=== PATIENT | male | born 1975 | race Two or more races ===

== ENCOUNTER 2020-07-06 12:07 | Outpatient (REF) | payer BC, SELFPAY | END 2020-07-06 12:08 | disposition home or self-care (01) | LOC: HO.LAB 12:07 | PROVIDERS: PCP Physician Assistant; Visit Provider Internal Medicine | DX: Z20.828 Contact with and (suspected) exposure to other viral communicable diseases (principal) | CPT/HCPCS: 87635 ==

== ENCOUNTER 2020-08-29 08:10 | Outpatient (REF) | payer BC, SELFPAY | END 2020-08-29 08:11 | disposition home or self-care (01) | LOC: HO.LAB 08:10 | PROVIDERS: Visit Provider Internal Medicine | DX: Z20.828 Contact with and (suspected) exposure to other viral communicable diseases (principal) | CPT/HCPCS: C9803; U0003 ==

== ENCOUNTER → 2020-09-18 09:03 | Outpatient (BNVA) | payer BC, SELFPAY | PROVIDERS: PCP Physician Assistant; Referring Provider Physician Assistant; Visit Provider Internal Medicine | DX: Z76.89 Persons encountering health services in other specified circumstances (principal) ==

== ENCOUNTER 2020-09-19 07:26 | Outpatient (REF) | payer BC, SELFPAY ==
[2020-09-19 09:13] LABS: Alanine Aminotransferase 49 U/L (0-40); Alkaline Phosphatase 62 U/L (39-117); Anion Gap 10 (12-20); Aspartate Amino Transferase 35 U/L (5-37); Bilirubin Total 1.4 mg/dL (0.0-1.0); Blood Urea Nitrogen 16 mg/dL (9-16); Calcium 8.5 mg/dL (8.4-10.2); Carbon Dioxide 27 mmol/L (22-29); Chloride 101 mmol/L (96-108); Cholesterol 122 mg/dL; Estimated Glomerular Filt Rate > 60; Glucose Random 109 mg/dL (60-115); HDL Cholesterol 39 mg/dL; LDL Cholesterol Calculated 70 mg/dl; Microalbum/Creatinine Ratio Ur 4.7 ug/mg cr; Potassium 4.1 mmol/l (3.3-5.1); Sodium 134 mmol/L (135-145); Total Protein 7.5 g/dL (6.5-8.0); Triglycerides 66 mg/dL
[2020-09-19 09:27] LABS: Vitamin D 25-OH Total 14.9 ng/mL (>30)
[2020-09-19 09:58] LABS: Estimated Average Glucose 134 mg/dL; Hemoglobin A1c % 6.3 %
[2020-09-20 17:47] LABS: LDL Cholesterol Direct 77 mg/dL (<100)
== END 2020-09-19 07:27 | disposition home or self-care (01) ==
LOC: HO.LAB 07:26
PROVIDERS: PCP Physician Assistant; Visit Provider Internal Medicine
DX: E11.65 Type 2 diabetes mellitus with hyperglycemia (principal); E55.9 Vitamin D deficiency, unspecified
CPT/HCPCS: 80053; 80061; 82043; 82306; 83036; 83721

== ENCOUNTER 2020-12-22 10:21 | Outpatient (REF) | payer OTHER, SELFPAY ==
[2020-12-22 11:27] LABS: Hematocrit 43.6 % (42-52); Hemoglobin 13.7 g/dl (14.0-18.0); Mean Corpuscular HGB Conc 31.4 g/dl (31.0-36.0); Mean Corpuscular Hemoglobin 28.4 pg (27.0-33.0); Mean Corpuscular Volume 90.5 fL (80-98); Mean Platelet Volume 11.5 fL (9.4-12.4); Platelet Count 314 X10*3/uL (160-400); Red Blood Count 4.82 X10*6/uL (4.60-5.80); Red Cell Distribution Width 11.9 % (11.0-16.0); White Blood Count 8.4 X10*3/uL (4.8-10.8)
[2020-12-22 11:45] LABS: Glucose Urine UA NEG (NEG); Leukocyte Esterase Urine NEG (NEG); Nitrite Urine NEG (NEG); PH 7.5 (5.0-8.0); Specific Gravity - Urine 1.015 (1.005-1.025); Urine Blood NEG (NEG); Urine Ketones NEG (NEG); Urine Protein NEG (NEG-TRACE)
[2020-12-22 11:48] LABS: Appearance Urine CLEAR; Color Urine YELLOW
[2020-12-22 12:01] LABS: Creatinine Urine 65.79 mg/dL
[2020-12-22 12:07] LABS: Alanine Aminotransferase 44 U/L (0-40); Albumin Level 4.2 g/dL (3.5-5.0); Alkaline Phosphatase 57 U/L (39-117); Anion Gap 13 (12-20); Aspartate Amino Transferase 36 U/L (5-37); Bilirubin Total 1.5 mg/dL (0.0-1.0); Blood Urea Nitrogen 16 mg/dL (9-16); Calcium 8.9 mg/dL (8.4-10.2); Carbon Dioxide 27 mmol/L (22-29); Chloride 100 mmol/L (96-108); Cholesterol 130 mg/dL; Estimated Glomerular Filt Rate > 60; Glucose Fasting 111 mg/dL (60-99); HDL Cholesterol 44 mg/dL; LDL Cholesterol Calculated 77 mg/dl; Potassium 4.3 mmol/L (3.3-5.1); Sodium 136 mmol/L (135-145); Total Protein 7.7 g/dL (6.5-8.0); Triglycerides 46 mg/dL
[2020-12-22 12:12] LABS: TSH reflex Free T4 1.18 uIU/mL (0.32-4.0)
== END 2020-12-22 10:22 | disposition home or self-care (01) ==
LOC: HO.LAB 10:21
PROVIDERS: Internal Medicine; PCP Physician Assistant; Visit Provider Physician Assistant
DX: E11.65 Type 2 diabetes mellitus with hyperglycemia (principal); I10 Essential (primary) hypertension; R30.0 Dysuria
CPT/HCPCS: 36415; 80053; 80061; 81003; 84443; 85027; 86900; 86901

== ENCOUNTER 2021-04-24 08:47 | Outpatient (REF) | payer OTHER, SELFPAY ==
[2021-04-24 12:12] LABS: Hematocrit 40.4 % (42-52); Hemoglobin 12.8 g/dl (14.0-18.0); Mean Corpuscular HGB Conc 31.7 g/dl (31.0-36.0); Mean Corpuscular Hemoglobin 28.3 pg (27.0-33.0); Mean Corpuscular Volume 89.4 fL (80-98); Platelet Count 267 X10*3/uL (160-400); Red Blood Count 4.52 X10*6/uL (4.60-5.80); Red Cell Distribution Width 12.7 % (11.0-16.0); White Blood Count 8.1 X10*3/uL (4.8-10.8)
[2021-04-24 12:28] LABS: Estimated Average Glucose 82 mg/dL; Hemoglobin A1c % 4.5 %
[2021-04-24 12:29] LABS: Alanine Aminotransferase 19 U/L (0-40); Alkaline Phosphatase 51 U/L (39-117); Anion Gap 11 (12-20); Aspartate Amino Transferase 20 U/L (5-37); Bilirubin Total 1.8 mg/dL (0.0-1.0); Blood Urea Nitrogen 9 mg/dL (9-16); Carbon Dioxide 28 mmol/L (22-29); Chloride 105 mmol/L (96-108); Cholesterol 123 mg/dL; Estimated Glomerular Filt Rate > 60; Glucose Fasting 103 mg/dL (60-99); HDL Cholesterol 33 mg/dL; LDL Cholesterol Calculated 81 mg/dl; Potassium 4.5 mmol/L (3.3-5.1); Sodium 139 mmol/L (135-145); Total Protein 7.2 g/dL (6.5-8.0); Triglycerides 47 mg/dL
[2021-04-24 12:52] LABS: TSH reflex Free T4 0.81 uIU/mL (0.32-4.0)
== END 2021-04-24 08:48 | disposition home or self-care (01) ==
LOC: HO.LAB 08:47
PROVIDERS: PCP Physician Assistant; Referring Provider Physician Assistant; Visit Provider Dietitian, Registered
DX: E11.65 Type 2 diabetes mellitus with hyperglycemia (principal); I10 Essential (primary) hypertension; Z98.84 Bariatric surgery status; Z71.3 Dietary counseling and surveillance
CPT/HCPCS: 36415; 80053; 80061; 83036; 84443; 85027; 97802

== ENCOUNTER → 2021-08-22 11:11 | Outpatient (BNVA) | payer OTHER, SELFPAY | PROVIDERS: PCP Physician Assistant; Referring Provider Physician Assistant; Visit Provider Surgery | DX: K64.9 Unspecified hemorrhoids (principal) | CPT/HCPCS: 46600 ==

== ENCOUNTER 2021-10-01 12:56 | Outpatient (REF) | payer OTHER, SELFPAY | END 2021-10-01 12:57 | disposition home or self-care (01) | LOC: HO.HMGCLDS 12:56 | PROVIDERS: Visit Provider Internal Medicine | DX: Z20.822 Contact with and (suspected) exposure to COVID-19 (principal) | CPT/HCPCS: C9803; U0003; U0005 ==

== ENCOUNTER 2022-01-06 14:38 | Inpatient (IN) | payer OTHER, SELFPAY ==
--- NOTE | 2022-01-06 | ECG_ITS ---
Test Reason : CP Blood Pressure : / mmHG Vent. Rate : 069 BPM Atrial Rate : 069 BPM P-R Int : 146 ms QRS Dur : 086 ms QT Int : 390 ms P-R-T Axes : 068 076 061 degrees QTc Int : 417 ms Normal sinus rhythm Normal ECG When compared with ECG of 18-MAR-2019 07:36, No significant change was found Referred By: Generic ED Physician Electronically Signed By:Myles Huntley
--- NOTE | ~2022-01-06 | US_ITS ---
EXAMINATION: US ABDOMEN LIMITED CLINICAL INFORMATION: Abdominal pain. Evaluate gallbladder.. COMPARISON: CT abdomen 01/06/2022 TECHNIQUE: Real-time imaging of the right upper quadrant abdominal viscera. FINDINGS: PANCREAS: Obscured by bowel gas LIVER: Normal. The liver is normal in size. The liver contour is normal. Parenchymal echogenicity is normal. No focal hepatic lesion. There is no intrahepatic biliary duct dilatation seen. GALLBLADDER: Gallbladder is mild to moderately distended. There is echogenic bile/sludge in the gallbladder. No shadowing calculi. The gallbladder wall is thickened measuring up to approximately 6 mm. No pericholecystic fluid. Technologist reports tenderness in the area of the gallbladder. . COMMON BILE DUCT: Normal in caliber measuring 0.3 cm in diameter. RIGHT KIDNEY: Normal. No hydronephrosis. No renal calculi or focal parenchymal lesions. The kidney measures 13.2 cm in maximum dimension. FREE FLUID: None. US/US abdomen limited IMPRESSION: 1.Gallbladder is mild to moderately distended. There is echogenic bile/sludge. No shadowing calculi evident by ultrasound. There is gallbladder wall thickening and tenderness in the area of the gallbladder. Sonographic features are nonspecific. Differential consideration include acalculus cholecystitis. Clinically correlate. Further evaluation with HIDA scan as clinically warranted. 2. Pancreas obscured by bowel gas.
--- NOTE | ~2022-01-06 | MR_ITS ---
EXAMINATION: MR ABDOMEN WITHOUT CONTRAST CLINICAL INFORMATION: Elevated liver function tests. Rule out common bile duct stone COMPARISON: Previous abdominal ultrasound and CT of the abdomen and pelvis from yesterday TECHNIQUE: MR abdomen is performed without gadolinium contrast. MRCP sequences were performed. FINDINGS: LUNG BASES: The visualized lung bases are unremarkable. LIVER, GALLBLADDER, AND BILIARY TREE: The liver is normal in size, smooth in contour, and normal in signal. No focal hepatic lesion or biliary ductal dilatation is present. The gallbladder is upper normal in size. There is dependent immediate signal material seen in the gallbladder suggestive of sludge. On coronal T2 image 11 there is question of several small gallstones. The gallbladder wall is slightly thickened measuring up to 4 to 5 mm.. The intra and extrahepatic bile ducts are normal in caliber. The common bile duct measures 0.5 cm. No common bile duct stone/filling defect is seen. PANCREAS: Unremarkable. SPLEEN: Unremarkable. ADRENAL GLANDS: Unremarkable. KIDNEYS AND URETERS: The kidneys are normal in size and shape. There is a small left renal cyst. No hydronephrosis. No perinephric stranding. GASTROINTESTINAL TRACT: Postsurgical changes to the stomach. Stool throughout the colon. No bowel obstruction. No ascites or fluid collection. ABDOMINAL WALL: No significant hernia is appreciated. LYMPH NODES: No lymphadenopathy. VASCULAR: Unremarkable. OSSEOUS STRUCTURES: Marrow signal normal. There is degenerative disc disease at L5-S1. MR/MR MRCP IMPRESSION: Normal caliber intra and extrahepatic bile ducts. No common bile duct stone seen. Upper normal-size gallbladder. Dependent intermediate signal in the gallbladder suggestive of sludge or small stones. Slightly thickened gallbladder wall.. Possible cholecystitis should be considered. Small left renal cyst.
--- NOTE | ~2022-01-06 | CT_ITS ---
EXAMINATION: CT ABDOMEN AND PELVIS WITH CONTRAST CLINICAL INFORMATION: Abdominal pain COMPARISON: Abdominal ultrasound 09/15/2017 TECHNIQUE: Multidetector volumetric images were obtained from the superior aspect of the liver through the pubic symphysis following administration 85 mL of Omnipaque 350 intravenous contrast. Sagittal and coronal reformatted images were obtained on the technologist's workstation. Oral contrast: No This CT examination was performed using dose optimization techniques as appropriate, variously including the following: *Automated exposure control *Adjustment of mA and/or kV according to patient size (this includes techniques or standardized protocols for targeted exams where dose is matched to indication/reason for exam; i.e. extremities or head) *Use of iterative reconstruction technique DLP: 639 mGy-cm FINDINGS: LUNG BASES: Unremarkable. ABDOMINAL AND PELVIC WALL: Unremarkable. LIVER AND BILIARY TREE: Unremarkable. GALLBLADDER: Gallbladder is mildly to moderately distended with borderline wall thickening. No radiopaque gallstones or sade pericholecystic inflammatory changes. PANCREAS: Unremarkable. SPLEEN: Unremarkable. ADRENAL GLANDS: Unremarkable. KIDNEYS AND URETERS: Benign-appearing Bosniak 1 left renal cyst, no imaging follow-up recommended. A 7 mm immediate density exophytic left lower pole renal lesion, 3:36. GASTROINTESTINAL TRACT: Postsurgical changes of gastric bypass. VASCULAR: Unremarkable. LYMPH NODES/PERITONEUM: No lymphadenopathy. FREE FLUID: None. BLADDER: Unremarkable. PELVIC VISCERA: Unremarkable. OSSEOUS STRUCTURES: Unremarkable. CT/CT abdomen pelvis w con IMPRESSION: Gallbladder is mildly to moderately distended with borderline wall thickening. No radiopaque gallstones or sade pericholecystic inflammatory changes. If any clinical concern for cholecystitis a right upper quadrant ultrasound could be obtained for further characterization. A 7 mm intermediate density exophytic left lower pole renal lesion of uncertain etiology unclear if this could reflect a hyperdense renal cyst or a solid renal mass. Recommend further characterization with renal ultrasound, and if renal ultrasound is not confirmatory a MR renal mass protocol should be obtained, although given small size it may be too small to definitively characterize.
[2022-01-06 14:47] VITALS: BP 144/86; PULSE 71; RESP 18; TEMP 531.6; TEMP 989; O2SAT 100; BMI 27.8
--- NOTE | 2022-01-06 14:59 | ED_ITS ---
HPI - General Adult General Chief complaint: General Medical Stated complaint: Chest pain Time Seen by Provider: 01/06/22 14:52 Source: patient Mode of arrival: ambulatory Limitations: no limitations History of Present Illness HPI narrative: 46 yo male with history of gastric sleeve in [facility] 12/2020 (sign wt loss since now off medications for DM, HTN, HLD) here with complaints of upper abdominal pain with radiation to the chest and back with nausea/vomiting x3 since 10am, worsened with deep breathing. States takes my breath away. No leg swelling, leg pain, Patel, fevers, chills, urinary symptoms. Related Data Previous Rx's Medication Instructions Recorded ibuprofen 800 mg tablet 800 mg PO ONCE 30 Days #30 tab 06/21/21 docusate sodium 100 mg capsule 100 mg PO BID 30 Days #60 cap 08/06/21 (Colace) hydrocortisone 1 % topical cream 1 appl TOPICAL TID PRN 7 Days 08/06/21 (Preparation H Hydrocortisone) #28.4 g Allergies Allergy/AdvReac Type Severity Reaction Status Date / Time No Known Allergies Allergy Verified 08/22/21 11:21 Review of Systems Review of Systems: Yes all other systems are reviewed and are negative Constitutional: Constitutional: Reports no additional constitutional complaints, Denies body ache(s), Denies chills, Denies fever(s), Denies headache(s) and Denies weakness Eyes: Eyes: Reports no additional eye complaints and Denies change in vision ENT: Reports system reviewed and no additional complaints, except as documented, Denies dizziness, Denies headache(s), Denies nasal congestion, Denies nasal discharge and Denies neck pain Cardiovascular: Cardiovascular: Reports no additional cardiovascular complaints, Reports chest pain, Denies leg edema and Reports dyspnea Respiratory: Respiratory: Reports no additional respiratory complaints, Denies cough and Reports dyspnea Gastrointestinal: Gastrointestinal: Reports no additional gastrointestinal complaints, Reports abdominal pain, Denies diarrhea, Reports nausea and Reports vomiting Genitourinary: Genitourinary: Denies urinary incontinence Musculoskeletal: Musculoskeletal: Reports no additional musculoskeletal complaints, Denies back pain, Denies arthralgias, Denies joint swelling, Denies neck pain, Denies numbness and Denies tingling Integumentary/Breasts: Skin/Breast: Reports system reviewed and no additional complaints, except as docu and Denies rash Neurologic: Reports system reviewed and no additional complaints, except as documented, Denies dizziness, Denies headache(s), Denies numbness, Denies tingling and Denies weakness PMFSH Past Medical History Attestation statement: The following information was validated with the patient. Source: old records reviewed and nursing notes reviewed Medical History HLD (hyperlipidemia) Vitamin D deficiency Surgical History History of carpal tunnel release Family History Family History Father Mental problem Substance abuse Mother Diabetes Cardiac arrest Social History Social History Housing: Apartment Alcohol intake: current Alcohol intake frequency: a few times a week Patient Tobacco Use Status: Never used Tobacco e-Cigarette/Vaping Use: Never Used Second Hand Smoke Exposure: No Use of substances other than those prescribed or required for medical reasons: Yes Substance Use Type: Marijuana Advance Directives: No Advance Directives Information Provided: No service: No Current occupational status: employed 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 Physical Exam ED Vital Signs: Vital Signs - 24 hr 01/06/22 14:47 01/06/22 15:17 01/06/22 15:43 Temperature 989 F H 97.8 F Pulse Rate 71 71 71 Respiratory Rate 18 14 15 Blood Pressure 144/86 H 133/82 136/78 Pulse Oximetry 100 98 01/06/22 17:52 01/06/22 17:54 01/06/22 19:50 Temperature 98.3 F Pulse Rate 76 76 74 Respiratory Rate 21 H 16 16 Blood Pressure 118/74 118/74 110/63 Pulse Oximetry 98 96 BMI result Body Mass Index 27.8 Const General: cooperative, healthy appearing, comfortable and no acute distress Orientation/consciousness: patient oriented x3 Limitations: no limitations HENMT Head: Yes normal to inspection Ears: hearing grossly normal bilaterally General nose exam: Normal external nose present Face and sinus: Yes normal facial exam Mouth: Normal oral and palatal mucosa present Teeth and gingiva: dentition normal Throat: Yes posterior oropharynx normal, Yes tonsils normal and Yes uvula midline Eyes General: appearance normal, both eyes and all related structures Pupils: Equal, round and reactive pupils present Neck Neck: Yes normal visual inspection, Yes full ROM, Yes no lymphadenopathy and Yes no meningeal signs Chest Chest palpation & inspection: normal inspection of the chest Resp Effort & Inspection: normal respiratory effort Auscultation: clear to auscultation bilaterally Cardio Rate: regular rate Rhythm: regular rhythm Peripheral pulses: Peripheral pulses 2+ throughout GI Inspection: Yes normal to inspection Palpation (GI): Soft to palpation and Tenderness to palpation present (GI) (Upper AP with guarding-focal in RUQ) General: Yes no CVA tenderness Back/Spine/Pelvis Back: no CVA tenderness Thoracic/Lumbar Spine: thoracic and lumbar spine normal to inspection Skin General skin exam: no rashes or lesions noted Neuro General: patient oriented x3, moves all extremities and no meningeal signs Cranial nerves: Yes CN's II-XII intact bilaterally, Yes Equal, round and reactive pupils present, Yes Bilaterally intact EOM present, Yes Nystagmus not present and Yes Normal facial strength present Cognition (Neuro): normal cognition Gait exam (Neuro): Normal gait present Motor exam (neuro): 5/5 motor strength present throughout Sensory Exam: Normal double simultaneous stimulation for sensation Extrem General: Yes normal to inspection, Yes no pedal edema and Yes no calf tenderness Course Course Course Narrative: 46-year-old male status post gastric bypass here with reports of vomiting with upper abdominal pain that radiates to the chest and back since 10:00. On exam patient has tenderness in the epigastric with some guarding but no rebound. Will check EKG, labs, UA. Anticipate patient will need CT of the abdomen and pelvis. Will provide analgesia, antiemetic and normal saline bolus. Reevaluation(s) Reevaluation #1: CT shows a mildly to moderately distended gallbladder with thickening. Will obtain ultrasound to evaluate further Time: 17:25 Reevaluation #2: US shows -IMPRESSION: 1.Gallbladder is mild to moderately distended. There is echogenic bile/sludge. No shadowing calculi evident by ultrasound. There is gallbladder wall thickening and tenderness in the area of the gallbladder. Sonographic features are nonspecific. Differential consideration include acalculus cholecystitis. Clinically correlate. Further evaluation with HIDA scan as clinically warranted. ? 2. Pancreas obscured by bowel gas. -Will d/w with surgery as patient has required several rounds of analgesia for adequate pain control. Time: 19:45 Reevaluation #3: Spoke to Dr. James from General surgery. She will admit patient for HIDA scan and further evaluation. She is requesting antibiotics. At this time infection is suspected. Antibiotics ordered. Time: 19:57 Medical Decision Making Medical Records Medical records reviewed: Yes I reviewed the patient's medical records. Lab Data Lab results reviewed: Yes I reviewed the patient's lab results. Result diagrams: 01/06/22 15:31 01/06/22 15:31 Labs: Lab Results 01/06/22 01/06/22 01/06/22 Range/Units 15:31 15:31 15:31 WBC 10.6 (4.8-10.8) X10*3/uL RBC 5.07 (4.60-5.80) X10*6/uL Hgb 14.6 (14.0-18.0) g/dl Hct 45.5 (42.0-52.0) % MCV 89.7 (80.0-98.0) fL MCH 28.8 (27.0-33.0) pg MCHC 32.1 (31.0-36.0) g/dl RDW 12.3 (11.0-16.0) % Plt Count 271 (160-400) X10*3/uL MPV 10.0 (9.4-12.4) fL Immature Gran % (Auto) 0.3 (0.0-0.4) % Neut % (Auto) 64.0 (45-73) % Lymph % (Auto) 23.4 (20-40) % [place] % (Auto) 9.4 (2-11) % Eos % (Auto) 2.3 (0-4) % Baso % (Auto) 0.6 (0-2) % Lymph # (Auto) 2.5 (1.2-4.9) X10*3/uL [place] # (Auto) 1.0 (0.1-1.2) X10*3/uL Eos # (Auto) 0.2 (0.0-0.4) X10*3/uL Baso # (Auto) 0.1 (0.0-0.2) X10*3/uL Abs Immat Gran (auto) 0.03 (0.00-0.03) X10*3/uL Absolute Neuts (auto) 6.8 (2.0-8.3) x10*3/uL Absolute Nucleated RBC 0.000 (0.0-0.012) X10*3/uL Nucleated RBC % (auto) 0.0 (0.0-0.2) /100WBC PT 13.1 H (9.9-13.0) SEC INR 1.2 H (0.9-1.1) D-Dimer High Sensitivty NG/ML Sodium 139 (135-145) mmol/L Potassium 4.0 (3.3-5.1) mmol/L Chloride 104 (96-108) mmol/L Carbon Dioxide 28 (22-29) mmol/L Anion Gap 11 L (12-20) BUN 16 (9-16) mg/dL Creatinine 0.97 (0.5-1.4) mg/dL Estim Creat Clear Calc 102.2 Estimated GFR > 60 Random Glucose 94 (60-115) mg/dL Lactic Acid (0.5-2.0) mmol/L Calcium 8.9 (8.4-10.2) mg/dL Magnesium 2.2 (1.6-2.6) mg/dL Total Bilirubin 3.5 H (0.0-1.0) mg/dL Direct Bilirubin 2.2 H (0.0-0.5) mg/dL AST 212 H (5-37) U/L ALT 129 H (0-40) U/L Alkaline Phosphatase 70 D (39-117) U/L Troponin I High Sens (<3.5-35.0) ng/L Total Protein 7.2 (6.5-8.0) g/dL Albumin 4.0 (3.5-5.0) g/dL Lipase 52 (8-78) U/L COVID-19 (BRENDA) (Negative) COVID-19 Clin Com 01/06/22 01/06/22 01/06/22 Range/Units 15:31 15:31 15:31 WBC (4.8-10.8) X10*3/uL RBC (4.60-5.80) X10*6/uL Hgb (14.0-18.0) g/dl Hct (42.0-52.0) % MCV (80.0-98.0) fL MCH (27.0-33.0) pg MCHC (31.0-36.0) g/dl RDW (11.0-16.0) % Plt Count (160-400) X10*3/uL MPV (9.4-12.4) fL Immature Gran % (Auto) (0.0-0.4) % Neut % (Auto) (45-73) % Lymph % (Auto) (20-40) % [place] % (Auto) (2-11) % Eos % (Auto) (0-4) % Baso % (Auto) (0-2) % Lymph # (Auto) (1.2-4.9) X10*3/uL [place] # (Auto) (0.1-1.2) X10*3/uL Eos # (Auto) (0.0-0.4) X10*3/uL Baso # (Auto) (0.0-0.2) X10*3/uL Abs Immat Gran (auto) (0.00-0.03) X10*3/uL Absolute Neuts (auto) (2.0-8.3) x10*3/uL Absolute Nucleated RBC (0.0-0.012) X10*3/uL Nucleated RBC % (auto) (0.0-0.2) /100WBC PT (9.9-13.0) SEC INR (0.9-1.1) D-Dimer High Sensitivty < 150 NG/ML Sodium (135-145) mmol/L Potassium (3.3-5.1) mmol/L Chloride (96-108) mmol/L Carbon Dioxide (22-29) mmol/L Anion Gap (12-20) BUN (9-16) mg/dL Creatinine (0.5-1.4) mg/dL Estim Creat Clear Calc Estimated GFR Random Glucose (60-115) mg/dL Lactic Acid 1.4 (0.5-2.0) mmol/L Calcium (8.4-10.2) mg/dL Magnesium (1.6-2.6) mg/dL Total Bilirubin (0.0-1.0) mg/dL Direct Bilirubin (0.0-0.5) mg/dL AST (5-37) U/L ALT (0-40) U/L Alkaline Phosphatase (39-117) U/L Troponin I High Sens < 3.5 (<3.5-35.0) ng/L Total Protein (6.5-8.0) g/dL Albumin (3.5-5.0) g/dL Lipase (8-78) U/L COVID-19 (BRENDA) (Negative) COVID-19 Clin Com 01/06/22 01/06/22 Range/Units 19:56 20:06 WBC (4.8-10.8) X10*3/uL RBC (4.60-5.80) X10*6/uL Hgb (14.0-18.0) g/dl Hct (42.0-52.0) % MCV (80.0-98.0) fL MCH (27.0-33.0) pg MCHC (31.0-36.0) g/dl RDW (11.0-16.0) % Plt Count (160-400) X10*3/uL MPV (9.4-12.4) fL Immature Gran % (Auto) (0.0-0.4) % Neut % (Auto) (45-73) % Lymph % (Auto) (20-40) % [place] % (Auto) (2-11) % Eos % (Auto) (0-4) % Baso % (Auto) (0-2) % Lymph # (Auto) (1.2-4.9) X10*3/uL [place] # (Auto) (0.1-1.2) X10*3/uL Eos # (Auto) (0.0-0.4) X10*3/uL Baso # (Auto) (0.0-0.2) X10*3/uL Abs Immat Gran (auto) (0.00-0.03) X10*3/uL Absolute Neuts (auto) (2.0-8.3) x10*3/uL Absolute Nucleated RBC (0.0-0.012) X10*3/uL Nucleated RBC % (auto) (0.0-0.2) /100WBC PT (9.9-13.0) SEC INR (0.9-1.1) D-Dimer High Sensitivty NG/ML Sodium (135-145) mmol/L Potassium (3.3-5.1) mmol/L Chloride (96-108) mmol/L Carbon Dioxide (22-29) mmol/L Anion Gap (12-20) BUN (9-16) mg/dL Creatinine (0.5-1.4) mg/dL Estim Creat Clear Calc Estimated GFR Random Glucose (60-115) mg/dL Lactic Acid 0.8 (0.5-2.0) mmol/L Calcium (8.4-10.2) mg/dL Magnesium (1.6-2.6) mg/dL Total Bilirubin (0.0-1.0) mg/dL Direct Bilirubin (0.0-0.5) mg/dL AST (5-37) U/L ALT (0-40) U/L Alkaline Phosphatase (39-117) U/L Troponin I High Sens (<3.5-35.0) ng/L Total Protein (6.5-8.0) g/dL Albumin (3.5-5.0) g/dL Lipase (8-78) U/L COVID-19 (BRENDA) Negative (Negative) COVID-19 Clin Com See Note Imaging Data CT scan - abdomen: Attestation: I personally reviewed and interpreted this imaging study as follows: Radiologist's impression: IMPRESSION: ? Gallbladder is mildly to moderately distended with borderline wall thickening.? No radiopaque gallstones or sade pericholecystic inflammatory changes. If any clinical concern for cholecystitis a right upper quadrant ultrasound could be obtained for further characterization. ? A 7 mm intermediate density exophytic left lower pole renal lesion of uncertain etiology unclear if this could reflect a hyperdense renal cyst or a solid renal mass. Recommend further characterization with renal ultrasound, and if renal ultrasound is not confirmatory a MR renal mass protocol should be obtained, although given small size it may be too small to definitively characterize. US - abdomen: Attestation: I personally reviewed and interpreted this imaging study as follows: Radiologist's impression: INDINGS: PANCREAS: Obscured by bowel gas LIVER: Normal. The liver is normal in size. The liver contour is normal. Parenchymal echogenicity is normal. No focal hepatic lesion. There is no intrahepatic biliary duct dilatation seen. GALLBLADDER: Gallbladder is mild to moderately distended. There is echogenic bile/sludge in the gallbladder. No shadowing calculi. The gallbladder wall is thickened measuring up to approximately 6 mm. No pericholecystic fluid. Technologist reports tenderness in the area of the gallbladder. . COMMON BILE DUCT: Normal in caliber measuring 0.3 cm in diameter. RIGHT KIDNEY: Normal. No hydronephrosis. No renal calculi or focal parenchymal lesions. The kidney measures 13.2 cm in maximum dimension. FREE FLUID: None. US/US abdomen limited IMPRESSION: 1.Gallbladder is mild to moderately distended. There is echogenic bile/sludge. No shadowing calculi evident by ultrasound. There is gallbladder wall thickening and tenderness in the area of the gallbladder. Sonographic features are nonspecific. Differential consideration include acalculus cholecystitis. Clinically correlate. Further evaluation with HIDA scan as clinically warranted. ? 2. Pancreas obscured by bowel gas. ECG Data Attestation: I personally reviewed and interpreted this ECG as follows: Interpretation: Normal sinus rhythm with a rate of 69, normal NE, normal QRS, normal QT Discharge Plan Discharge Clinical Impression: Cholecystitis Patient Disposition: Admitted As Inpatient
[2022-01-06 15:17] VITALS: BP 133/82; PULSE 71; RESP 14; TEMP 36.6; O2SAT 98
[2022-01-06 15:35] LABS: MANUAL DIFF FLAG NO
[2022-01-06 15:36] LABS: Basophils Absolute Auto 0.1 X10*3/uL (0.0-0.2); Basophils Percent Auto 0.6 % (0-2); Eosinophils Absolute Auto 0.2 X10*3/uL (0.0-0.4); Eosinophils Percent Auto 2.3 % (0-4); Hematocrit 45.5 % (42.0-52.0); Hemoglobin 14.6 g/dl (14.0-18.0); Imm Gran Abs Auto 0.03 X10*3/uL (0.00-0.03); Imm Gran Pct Auto 0.3 % (0.0-0.4); Lymphocytes Absolute Auto 2.5 X10*3/uL (1.2-4.9); Lymphocytes Percent Auto 23.4 % (20-40); Mean Corpuscular HGB Conc 32.1 g/dl (31.0-36.0); Mean Corpuscular Hemoglobin 28.8 pg (27.0-33.0); Mean Corpuscular Volume 89.7 fL (80.0-98.0); Monocytes Percent Auto 9.4 % (2-11); Neutrophils Absolute Auto 6.8 x10*3/uL (2.0-8.3); Platelet Count 271 X10*3/uL (160-400); Red Blood Count 5.07 X10*6/uL (4.60-5.80); Red Cell Distribution Width 12.3 % (11.0-16.0); White Blood Count 10.6 X10*3/uL (4.8-10.8)
[2022-01-06] MEDS: 0.9 % Sodium Chloride 1,000 ML 999 ML IV (15:42)
[2022-01-06 15:43] VITALS: BP 136/78; PULSE 71; RESP 15
[2022-01-06 15:43] LABS: INTERNATIONAL NORM RATIO 1.2 (0.9-1.1); Prothrombin Time 13.1 SEC (9.9-13.0)
[2022-01-06] MEDS: ondansetron HCL 4 MG/2 ML VIAL IVPUSH (15:43)
[2022-01-06] MEDS: Morphine Sulfate 4 MG/ML CARTRIDGE IVPUSH ×2 (15:43→19:51)
[2022-01-06 15:46] LABS: D Dimer High Sensitivity < 150 NG/ML
[2022-01-06 15:48] LABS: Lactic Acid 1.4 mmol/L (0.5-2.0)
[2022-01-06 15:56] LABS: Alanine Aminotransferase 129 U/L (0-40); Alkaline Phosphatase 70 U/L (39-117); Anion Gap 11 (12-20); Aspartate Amino Transferase 212 U/L (5-37); Bilirubin Direct 2.2 mg/dL (0.0-0.5); Bilirubin Total 3.5 mg/dL (0.0-1.0); Blood Urea Nitrogen 16 mg/dL (9-16); Calcium 8.9 mg/dL (8.4-10.2); Carbon Dioxide 28 mmol/L (22-29); Chloride 104 mmol/L (96-108); Creatinine Clr Calc Pharmacy 102.2; Estimated Glomerular Filt Rate > 60; Glucose Random 94 mg/dL (60-115); Magnesium 2.2 mg/dL (1.6-2.6); Sodium 139 mmol/L (135-145); Total Protein 7.2 g/dL (6.5-8.0); Troponin-I High Sensitivity < 3.5 ng/L (<3.5-35.0)
[2022-01-06] MEDS: iohexoL 350 MG/ML 100 ML INFUS..BTL IV (16:35)
[2022-01-06 17:52] VITALS: BP 118/74; PULSE 76; RESP 21; O2SAT 98
[2022-01-06 17:54] VITALS: BP 118/74; PULSE 76; RESP 16
[2022-01-06 19:50] VITALS: BP 110/63; PULSE 74; RESP 16; TEMP 36.8; O2SAT 96
[2022-01-06 20:06] LABS: Lipase 52 U/L (8-78)
[2022-01-06 20:18] LABS: COVID-19 Test Negative (Negative)
[2022-01-06 20:21] LABS: Lactic Acid 0.8 mmol/L (0.5-2.0)
--- NOTE | 2022-01-06 20:29 | PHA.MEDREC ---
Pharmacy Consult ? Medication Reconciliation Pharmacy has completed the medication reconciliation. Patient is not on any prescription medications. patient states he is on vitamins post gastric sleeve but does not know which vitamins he takes.
[2022-01-06] MEDS: Piperacillin Sodium/Tazobactam 3.375 GM in 0.9 % Sodium Chloride 50 ML IV (20:41)
--- NOTE | 2022-01-06 21:18 | PC.NURSE ---
patient vomited shortly after attempting to eat. informed patient not to eat anymore until seen by hospitalist for further diet orders. patient agreeable.
[2022-01-06] MEDS: 0.9 % Sodium Chloride 1,000 ML 100 ML IVCONT (22:43)
[2022-01-06 23:29] LABS: Hematocrit 41.1 % (42.0-52.0); Hemoglobin 13.2 g/dl (14.0-18.0); Mean Corpuscular HGB Conc 32.1 g/dl (31.0-36.0); Mean Corpuscular Hemoglobin 28.9 pg (27.0-33.0); Mean Corpuscular Volume 90.1 fL (80.0-98.0); Platelet Count 245 X10*3/uL (160-400); Red Blood Count 4.56 X10*6/uL (4.60-5.80); Red Cell Distribution Width 12.2 % (11.0-16.0); White Blood Count 7.3 X10*3/uL (4.8-10.8)
[2022-01-07 00:05] VITALS: BP 107/65; PULSE 60; RESP 12; TEMP 37.1; O2SAT 97
[2022-01-07 05:48] LABS: MANUAL DIFF FLAG NO
[2022-01-07 05:50] LABS: Basophils Percent Auto 0.7 % (0-2); Eosinophils Absolute Auto 0.3 X10*3/uL (0.0-0.4); Eosinophils Percent Auto 4.1 % (0-4); Hematocrit 40.9 % (42.0-52.0); Hemoglobin 13.1 g/dl (14.0-18.0); Imm Gran Abs Auto 0.02 X10*3/uL (0.00-0.03); Imm Gran Pct Auto 0.3 % (0.0-0.4); Lymphocytes Absolute Auto 1.5 X10*3/uL (1.2-4.9); Lymphocytes Percent Auto 24.8 % (20-40); Mean Corpuscular Hemoglobin 28.9 pg (27.0-33.0); Mean Corpuscular Volume 90.1 fL (80.0-98.0); Mean Platelet Volume 10.5 fL (9.4-12.4); Monocytes Absolute Auto 0.6 X10*3/uL (0.1-1.2); Monocytes Percent Auto 9.4 % (2-11); Neutrophils Absolute Auto 3.7 x10*3/uL (2.0-8.3); Neutrophils Percent Auto 60.7 % (45-73); Platelet Count 235 X10*3/uL (160-400); Red Blood Count 4.54 X10*6/uL (4.60-5.80); Red Cell Distribution Width 12.2 % (11.0-16.0); White Blood Count 6.1 X10*3/uL (4.8-10.8)
[2022-01-07 06:15] LABS: Alanine Aminotransferase 305 U/L (0-40); Albumin Level 3.4 g/dL (3.5-5.0); Alkaline Phosphatase 70 U/L (39-117); Anion Gap 11 (12-20); Aspartate Amino Transferase 274 U/L (5-37); Bilirubin Total 4.9 mg/dL (0.0-1.0); Blood Urea Nitrogen 14 mg/dL (9-16); Calcium 8.7 mg/dL (8.4-10.2); Carbon Dioxide 26 mmol/L (22-29); Chloride 108 mmol/L (96-108); Creatinine Clr Calc Pharmacy 100.1; Estimated Glomerular Filt Rate > 60; Glucose Random 93 mg/dL (60-115); Potassium 4.5 mmol/L (3.3-5.1); Sodium 140 mmol/L (135-145); Total Protein 6.1 g/dL (6.5-8.0)
[2022-01-07 06:39] VITALS: BP 105/71; PULSE 60; RESP 12; TEMP 37.2; O2SAT 97
--- NOTE | 2022-01-07 08:51 | MHC.CM.PN ---
PT REPORTS HE LIVES WITH HIS SISTER AND IS FULLY INDEPENDENT WITH CARE PT REPORTS HE USES A CPAP AT NIGHT AND NO OTHER DME PT DENIES USING HOME OR COMMUNITY SERVICES PT DOES NOT HAVE A HCP, HE DOES NOT WANT TO COMPLETE ONE NOW, BUT IS AWARE CM COULD ASSIST WITH ONE ANYTIME DURING HIS ADMISSION PT CONFIRMS HIS PCP IS FAB JONES PT REPORTS HE HAS RECEIVED ONE DOSE OF THE PFIZER VACCINE FOR COVID-19 AND IS SCHEDULED FOR HIS SECOND DOSE ON Friday01/09/22 CURRENT DC PLAN IS HOME WITH NO SERVICES FAMILY TO TRANSPORT
--- NOTE | 2022-01-07 09:17 | P.HPGS_ITS ---
History of Present Illness History of Present Illness Date of Service: 01/09/22 Chief complaint: abdominal pain Narrative: Tomasz Cheung is a 46 year old male who came to the ER yesterday because of what he describes as pain on the upper abdomen and the entire chest and the back. He says that he actually started 2 days ago last Friday. He says this started out as mild. Yesterday, he describes the pain as severe. He says that he had vomited at home. He currently says that his pain is much improved morning, although still present. He says that currently he has very mild pain on the epigastric area. He had a laparoscopic sleeve gastrectomy in [facility] about 10 months ago he says. He said he had lost about 130 lb since then. Review of Systems Constitutional: Constitutional: Denies chills and Denies fever(s) Cardiovascular: Cardiovascular: Denies chest pain, Denies dyspnea and Denies dyspnea on exertion Respiratory: Respiratory: Denies cough, Denies dyspnea and Denies dyspnea on exertion Gastrointestinal: Gastrointestinal: Denies hematochezia and Denies change in bowel habits Genitourinary: Genitourinary: Denies hematuria and Denies difficulty urinating Musculoskeletal: Musculoskeletal: Reports back pain and Denies limited range of motion Neurologic: Denies focal weakness and Denies convulsions Psychiatric: Psychiatric: Denies depression and Denies mood swings PMFSH Past Medical History Medical History (Updated 01/09/22 @ 08:52 by Lex Mcconnell MD) Elevated liver enzymes Gallstones HLD (hyperlipidemia) Vitamin D deficiency Family History Family History Father Mental problem Substance abuse Mother Diabetes Cardiac arrest Surgical History Surgical History (Updated 01/07/22 @ 10:07 by Maria R Lockwood PA-C) History of carpal tunnel release History of sleeve gastrectomy Social History Social History Household Members: Significant Other and Family Household Members Other:: 3 Housing: Apartment Do you presently have visiting nurse or other home services: No Alcohol intake: current Alcohol intake frequency: a few times a week Patient Tobacco Use Status: Never used Tobacco e-Cigarette/Vaping Use: Never Used Second Hand Smoke Exposure: No Use of substances other than those prescribed or required for medical reasons: Yes Substance Use Type: Marijuana Substance Use Frequency: Daily Last Used Substance: Just Prior to Admission Last Used Substance Other:: 01/05/22 Currently Displaying Signs/Symptoms of Drug Intoxication Withdrawal: No Any prior treatment program specific to substance use: No Have you been hit, kicked, punched, or otherwise hurt by someone within the past year? If so, by whom?: No Do you feel safe in your current relationship?: Yes Is there a partner from a previous relationship who is making you feel unsafe now?: No Are you made to feel afraid or neglected: No Spiritual Healthcare Practices: scientologist Advance Directives: No Advance Directives Information Provided: No Do you have thoughts of harming others: None Do you have a plan to hurt others: No Plan Recently lost weight without trying: No How much weight loss: 34pounds or more Eating poorly because of decreased appetite: No Nutrition screen score: 4 Nutrition Risks: No Nutritional Risk Poor oral hygiene: No service: No Current occupational status: employed 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 Meds Allergies Allergy/AdvReac Type Severity Reaction Status Date / Time No Known Allergies Allergy Verified 08/22/21 11:21 Active Medications: Current Medications Sodium Chloride (Ns) 1,000 mls @ 100 mls/hr IVCONT .Q10H [facility] Last Admin: 01/06/22 22:43 Dose: 100 mls/hr Documented by: Morphine Sulfate (Morphine Sulfate 4 Mg/Ml Cartridge) 4 mg IVPUSH Q4H PRN; Protocol PRN Reason: Pain, Severe (Pain Scale 7-10) Pharmacy Consult (Consult Rx Perform Med Rec) 1 each MISCELLANE ONCE PRN PRN Reason: Consult order Sodium Chloride (0.9 % Sodium Chloride Flush 3 Ml Syringe) 3 ml IVFLUSH QSHIFT [facility] Last Admin: 01/07/22 07:57 Dose: Not Given Documented by: Home Medications Medication Instructions Recorded Confirmed Last Taken Type No Known Home Meds 01/06/22 01/06/22 Unknown History Physical Exam Vital Signs: Vital Signs: Last Vital Signs Temp 98.9 F 01/07/22 06:39 Pulse 60 01/07/22 06:39 Resp 12 01/07/22 06:39 BP 105/71 01/07/22 06:39 Pulse Ox 97 01/07/22 06:39 BMI result Body Mass Index 27.8 Const: General: comfortable and no acute distress Orientation/consciousness: patient oriented x3 Neck: Neck: Yes no lymphadenopathy Resp: Auscultation: clear to auscultation bilaterally Cardio: Rhythm: regular rhythm GI: Other: Minimal tenderness to deep palpation, epigastric area and right upper quadrant Palpation (GI): Soft to palpation, nontender and no guarding Neuro: General: patient oriented x3 Results Results Labs: Short CBC 01/06/22 01/06/22 01/07/22 Range/Units 15:31 23:24 05:32 WBC 10.6 7.3 6.1 (4.8-10.8) X10*3/uL Hgb 14.6 13.2 L 13.1 L (14.0-18.0) g/dl Hct 45.5 41.1 L 40.9 L (42.0-52.0) % Plt Count 271 245 235 (160-400) X10*3/uL BMP 01/06/22 01/07/22 15:31 05:32 Sodium 139 140 Potassium 4.0 4.5 Chloride 104 108 Carbon Dioxide 28 26 BUN 16 14 Creatinine 0.97 0.99 Calcium 8.9 8.7 Liver Function 01/06/22 01/07/22 Range/Units 15:31 05:32 Total Bilirubin 3.5 H 4.9 H (0.0-1.0) mg/dL Direct Bilirubin 2.2 H (0.0-0.5) mg/dL AST 212 H 274 H (5-37) U/L ALT 129 H 305 H (0-40) U/L Alkaline Phosphatase 70 D 70 (39-117) U/L Albumin 4.0 3.4 L (3.5-5.0) g/dL Assessment and Plan (1) Elevated liver enzymes: Status: Acute He came in because of abdominal pain and chest pain as well as back pain. His CAT scan shows large, some mild thickening of the gallbladder wall without any other signs of pericholecystic inflammation. He had a normal white count. However, his bilirubin was very high and remains so this morning. His overall clinical picture is suggestive of choledocholithiasis. We have ordered for an MRCP. I have asked for a GI consult for possible ERCP. He otherwise has a very benign exam has very minimal tenderness at this time. (2) Gallstones: Status: Acute Overall does not seem to have acute cholecystitis clinically. However, if he has CBD stones, will offer option of proceeding with cholecystectomy view of the risk of recurrence. Quality Stroke Does the patient have a stroke diagnosis?: No VTE Prior VTE?: No VTE Risk Level:: Surgical - low VTE Device Contraindication: N/A - Device Ordered VTE Drug Contraindication: Treatment Not Indicated Procedures Date of Service Date of Service: 01/07/22
--- NOTE | 2022-01-07 09:19 | PM.HPGS ---
History of Present Illness History of Present Illness Date of Service: 01/07/22 <Maria R Lockwood PA-C - Last Filed: 01/07/22 13:34> 01/09/22 <Lex Mcconnell MD - Last Filed: 01/09/22 08:54> Chief complaint: abdominal pain <Maria R Lockwood PA-C - Last Filed: 01/07/22 13:34> Narrative: Tomasz Cheung is a 46 year old male who presented to the ED with complaints of right chest/epigastric/RUQ pain. Patient was in his usual state of health when he developed acute onset of pain yesterday morning following breakfast of scrambled eggs and kielbasa. The pain was severe and radiated into his upper back. He tried to lay down but the pain got worse. It was associated with nausea and multiple episodes of vomiting. Denies fever, chills, diarrhea. Due to the severity of pain he presented to the ED for evaluation. ABD US/CT scan showed a distended gallbladder with echogenic sludge and wall thickening. No intra or extrahepatic biliary ductal dilatation seen. LFTs were elevated with total/direct bili of 3.9/2.2 and AST/ALT 212 and 129. Bilirubin up to 4.9 this morning. WBC count normal. He reports persistent pain this morning. Patient has history of laparoscopic sleeve gastrectomy a year ago in [place]. He has lost over 100lbs since the surgery and is off meds for diabetes mellitus, HTN, hyperlipidema. <Maria R Lockwood PA-C - Last Filed: 01/07/22 13:34> Review of Systems Constitutional: Constitutional: Denies chills, Denies fever(s) and Denies malaise <Maria R Lockwood PA-C - Last Filed: 01/07/22 13:34> ENT: Denies dizziness <JODI Small Last Filed: 01/07/22 13:34> Cardiovascular: Cardiovascular: Reports chest pain (right sided), Denies radiating jaw, neck or arm pain, Denies palpitations and Denies dyspnea <JODI Small Last Filed: 01/07/22 13:34> Respiratory: Respiratory: Denies cough and Denies dyspnea <Maria R Lockwood PA-C - Last Filed: 01/07/22 13:34> Gastrointestinal: Gastrointestinal: Reports as per HPI and Reports constipation (moves bowels 1x/week) <Maria R Lockwood PA-C - Last Filed: 01/07/22 13:34> Genitourinary: Genitourinary: Denies hematuria and Denies dysuria <Maria R Lockwood PA-C - Last Filed: 01/07/22 13:34> Integumentary/Breasts: Skin/Breast: Denies rash and Denies jaundice <Maria R Lockwood PA-C - Last Filed: 01/07/22 13:34> Neurologic: Denies dizziness <Maria R Lockwood PA-C - Last Filed: 01/07/22 13:34> Endocrine: Endocrine: Denies palpitations <Maria R Lockwood PA-C - Last Filed: 01/07/22 13:34> PMF Past Medical History Medical History: Medical History (Updated 01/09/22 @ 08:52 by Lex Mcconnell MD) Elevated liver enzymes Gallstones HLD (hyperlipidemia) Vitamin D deficiency <Maria R Lockwood PA-C - Last Filed: 01/07/22 13:34> Family History Family History: Family History Father Mental problem Substance abuse Mother Diabetes Cardiac arrest <Maria R Lockwood PA-C - Last Filed: 01/07/22 13:34> Surgical History Surgical History: Surgical History (Updated 01/07/22 @ 10:07 by Maria R Lockwood PA-C) History of carpal tunnel release History of sleeve gastrectomy <Maria R Lockwood PA-C - Last Filed: 01/07/22 13:34> Social History Social History: Social History Household Members: Significant Other and Family Household Members Other:: 3 Housing: Apartment Do you presently have visiting nurse or other home services: No Alcohol intake: current Alcohol intake frequency: a few times a week Patient Tobacco Use Status: Never used Tobacco e-Cigarette/Vaping Use: Never Used Second Hand Smoke Exposure: No Use of substances other than those prescribed or required for medical reasons: Yes Substance Use Type: Marijuana Substance Use Frequency: Daily Last Used Substance: Just Prior to Admission Last Used Substance Other:: 01/05/22 Currently Displaying Signs/Symptoms of Drug Intoxication Withdrawal: No Any prior treatment program specific to substance use: No Have you been hit, kicked, punched, or otherwise hurt by someone within the past year? If so, by whom?: No Do you feel safe in your current relationship?: Yes Is there a partner from a previous relationship who is making you feel unsafe now?: No Are you made to feel afraid or neglected: No Spiritual Healthcare Practices: jainism Advance Directives: No Advance Directives Information Provided: No Do you have thoughts of harming others: None Do you have a plan to hurt others: No Plan Recently lost weight without trying: No How much weight loss: 34pounds or more Eating poorly because of decreased appetite: No Nutrition screen score: 4 Nutrition Risks: No Nutritional Risk Poor oral hygiene: No service: No Current occupational status: employed 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 <Maria R Lockwood PA-C - Last Filed: 01/07/22 13:34> Meds Allergies/Adverse reactions: Allergies Allergy/AdvReac Type Severity Reaction Status Date / Time No Known Allergies Allergy Verified 08/22/21 11:21 <Maria R Lockwood PA-C - Last Filed: 01/07/22 13:34> Active Medications: Current Medications Sodium Chloride (Ns) 1,000 mls @ 100 mls/hr IVCONT .Q10H [facility] Last Admin: 01/06/22 22:43 Dose: 100 mls/hr Documented by: Morphine Sulfate (Morphine Sulfate 4 Mg/Ml Cartridge) 4 mg IVPUSH Q4H PRN; Protocol PRN Reason: Pain, Severe (Pain Scale 7-10) Pharmacy Consult (Consult Rx Perform Med Rec) 1 each MISCELLANE ONCE PRN PRN Reason: Consult order Sodium Chloride (0.9 % Sodium Chloride Flush 3 Ml Syringe) 3 ml IVFLUSH QSHIFT [facility] Last Admin: 01/07/22 07:57 Dose: Not Given Documented by: <Maria R Lockwood PA-C - Last Filed: 01/07/22 13:34> Home medications: Home Medications Medication Instructions Recorded Confirmed Last Taken Type No Known Home Meds 01/06/22 01/06/22 Unknown History <Maria R Lockwood PA-C Last Filed: 01/07/22 13:34> Physical Exam Vital Signs: Vital Signs: Last Vital Signs Temp 98.9 F 01/07/22 06:39 Pulse 60 01/07/22 06:39 Resp 12 01/07/22 06:39 BP 105/71 01/07/22 06:39 Pulse Ox 97 01/07/22 06:39 BMI result Body Mass Index 27.8 <KATTY Small Last Filed: 01/07/22 13:34> Const: General: comfortable, no acute distress and alert <KATTY Small Last Filed: 01/07/22 13:34> Nutritional Appearance: well nourished <SCOTT SmallSarah Last Filed: 01/07/22 13:34> Orientation/consciousness: patient oriented x3 <KATTY Small Last Filed: 01/07/22 13:34> Eyes: Sclerae: scleral abnormal (icteric) <SCOTT SmallSarah Last Filed: 01/07/22 13:34> Neck: Neck: Yes trachea midline <SCOTT SmallSarah Last Filed: 01/07/22 13:34> Resp: Effort & Inspection: normal respiratory effort <KATTY Small Last Filed: 01/07/22 13:34> Cardio: Rate: regular rate <SCOTT SmallSarah Last Filed: 01/07/22 13:34> GI: Inspection: No distended and Yes scar (several small cm scars in the upper abdomen) <SCOTT SmallSarah Last Filed: 01/07/22 13:34> Palpation (GI): Soft to palpation, Tenderness to palpation present (GI) in the RUQ, Ralph's sign positive and with rebound tenderness, no guarding and not rigid <Maria R Lockwood PA-C Last Filed: 01/07/22 13:34> Percussion: Yes normal to percussion <JODI Small Last Filed: 01/07/22 13:34> Skin: General skin exam: no rashes or lesions noted <JODI Small Last Filed: 01/07/22 13:34> Neuro: General: patient oriented x3 <JODI Small Last Filed: 01/07/22 13:34> Extrem: General: Yes no clubbing, cyanosis or edema <JODI Small Last Filed: 01/07/22 13:34> Results Results Labs: Short CBC 01/06/22 01/06/22 01/07/22 Range/Units 15:31 23:24 05:32 WBC 10.6 7.3 6.1 (4.8-10.8) X10*3/uL Hgb 14.6 13.2 L 13.1 L (14.0-18.0) g/dl Hct 45.5 41.1 L 40.9 L (42.0-52.0) % Plt Count 271 245 235 (160-400) X10*3/uL BMP 01/06/22 01/07/22 15:31 05:32 Sodium 139 140 Potassium 4.0 4.5 Chloride 104 108 Carbon Dioxide 28 26 BUN 16 14 Creatinine 0.97 0.99 Calcium 8.9 8.7 Liver Function 01/06/22 01/07/22 Range/Units 15:31 05:32 Total Bilirubin 3.5 H 4.9 H (0.0-1.0) mg/dL Direct Bilirubin 2.2 H (0.0-0.5) mg/dL AST 212 H 274 H (5-37) U/L ALT 129 H 305 H (0-40) U/L Alkaline Phosphatase 70 D 70 (39-117) U/L Albumin 4.0 3.4 L (3.5-5.0) g/dL <JODI Small Last Filed: 01/07/22 13:34> Assessment and Plan (1) Elevated liver enzymes: Status: Acute <JODI Small Last Filed: 01/07/22 13:34> Seen and examined independently Agree with SCOTT Lockwood <Lex Mcconnell MD - Last Filed: 01/09/22 08:54> (2) S/P bariatric surgery: Status: Acute <Maria R Lockwood PA-C - Last Filed: 01/07/22 13:34> Plan 46 year old male with acute onset epigastric/RUQ/ R chest pain for 1 day following fatty food ingestion with RUQ tenderness, ralph sign on exam with a distended gallbladder and ?wall thickening on imaging with significantly elevated bilirubin. Clinical history and picture consistent with choledocolithiasis, possible early cholecystitis. He has a normal WBC count. The patient was admitted to the surgical service for further treatment and work up. Will obtain MRCP to r/o CBD stone/sludge. Will obtain GI consult as well for input. Trend LFTs. Will keep NPO for now, on IVF, PRN analgesics for pain. Further plan dependent on MRI results. Patient comfortable with plan. <Maria R Lockwood PA-C - Last Filed: 01/07/22 13:34> Quality Stroke Does the patient have a stroke diagnosis?: No <Maria R Lockwood PA-C - Last Filed: 01/07/22 13:34> VTE Prior VTE?: No <Maria R Lockwood PA-C - Last Filed: 01/07/22 13:34> VTE Risk Level:: Surgical - low <Maria R Lockwood PA-C - Last Filed: 01/07/22 13:34> VTE Device Contraindication: N/A - Device Ordered <Maria R Lockwood PA-C - Last Filed: 01/07/22 13:34> VTE Drug Contraindication: Treatment Not Indicated <Maria R Lockwood PA-C - Last Filed: 01/07/22 13:34> Procedures Date of Service Date of Service: 01/07/22 <Maria R Lockwood PA-C - Last Filed: 01/07/22 13:34>
[2022-01-07] MEDS: 0.9 % Sodium Chloride 1,000 ML 100 ML IVCONT ×2 (09:55→21:40)
[2022-01-07] MEDS: Morphine Sulfate 4 MG/ML CARTRIDGE IVPUSH ×3 (11:43→23:29)
[2022-01-07] MEDS: Acetaminophen 325 MG TABLET 650 MG PO (13:46)
[2022-01-07 14:47] VITALS: BP 138/80; PULSE 65; RESP 16; TEMP 36.6; O2SAT 97
[2022-01-07 15:10] VITALS: BP 121/75; PULSE 72; RESP 14; TEMP 37.3; O2SAT 96
--- NOTE | 2022-01-07 15:56 | PM.EVENT ---
Event Note Date of Service: 01/07/22 Event Note: GI consult dictated Elevated liver tests and ruq pain reviewed imaging studies with Dr Walker no definite cbd pathology seen. ? passed stone or sludge. follow lft's, no plans for ERCP at this time.
[2022-01-07 19:06] VITALS: BP 118/60; PULSE 52; RESP 15; TEMP 37.2; O2SAT 98
--- NOTE | 2022-01-07 22:03 | CONS_ITS ---
DATE OF SERVICE: 01/07/2022 REFERRING PHYSICIAN: Dr. Mcconnell REASON FOR CONSULTATION: Elevated liver function tests and right upper quadrant pain. HISTORY OF PRESENT ILLNESS: The patient is a pleasant 46-year-old man, who was admitted to the hospital after presenting to the emergency room yesterday with complaints of right upper quadrant pain and vomiting. Symptoms began the day before admission initially with a dull ache in the right upper quadrant, they became more severe when he had breakfast and became associated with nausea and vomiting. There was no hematemesis. He presented to the Emergency Department where he was evaluated with laboratory testing, which showed elevation of his liver function tests. Imaging studies reviewed. He has had an ultrasound, CT scanning and MRCP, which have shown wall thickening on the gallbladder and normal biliary system. Liver function tests remained elevated with slight worsening of his bilirubin, AST, and ALT. Alkaline phosphatase has remained normal. The patient is status post sleeve gastrectomy in [place] about 1 year ago by his report. PAST MEDICAL HISTORY: 1. Hypertension. 2. Diabetes. 3. Elevated liver enzymes. CURRENT MEDICATIONS: His current medication list is reviewed in the chart. ALLERGIES: THERE ARE NONE REPORTED. FAMILY HISTORY: This is reviewed with the patient and is noncontributory. SOCIAL HISTORY: There is no current substance abuse. REVIEW OF SYSTEMS: SKIN: No pruritus. HEENT: Negative. CARDIOPULMONARY: No shortness of breath or chest pain. GASTROINTESTINAL: As above. GENITOURINARY: Negative. NEUROPSYCHIATRIC: Negative. PHYSICAL EXAMINATION: GENERAL: Shows a pleasant male, lying comfortably in bed. VITAL SIGNS: Reviewed in the electronic medical record and are stable. SKIN: Anicteric. HEENT: Shows no scleral icterus. NECK: Without lymphadenopathy or thyromegaly. LUNGS: Clear. HEART: Shows a regular rate and rhythm. S1, S2. No murmur. ABDOMEN: Soft without focal masses or tenderness. Bowel sounds are present. No organomegaly is noted. EXTREMITIES: Without edema. LABORATORY DATA AND X-RAYS: Reviewed as above. IMPRESSION: Elevated liver function tests. At this time, there appears to be no evidence of biliary obstruction by his imaging studies. His alkaline phosphatase also argues against a biliary obstruction. I would recommend monitoring his liver function tests and holding off on ERCP at this time. It is possible he could have passed some sludge or small stone or that his elevation of his enzymes is all related to his gallbladder. Thanks for asking me to see him. I will follow him in the hospital with you. MD BRIJESH James/LEXX / [id number] MTDD
[2022-01-07 23:26] VITALS: BP 124/79; PULSE 70; RESP 20; TEMP 36.7; O2SAT 96
[2022-01-08 03:26] VITALS: BP 125/74; PULSE 66; RESP 16; TEMP 37; O2SAT 97
[2022-01-08] MEDS: Morphine Sulfate 4 MG/ML CARTRIDGE IVPUSH ×3 (03:32→16:49)
[2022-01-08] MEDS: ondansetron HCL 4 MG/2 ML VIAL IVPUSH ×2 (03:38→13:25)
[2022-01-08 05:41] LABS: MANUAL DIFF FLAG NO
[2022-01-08 05:48] LABS: Basophils Absolute Auto 0.1 X10*3/uL (0.0-0.2); Basophils Percent Auto 0.8 % (0-2); Eosinophils Absolute Auto 0.3 X10*3/uL (0.0-0.4); Eosinophils Percent Auto 5.2 % (0-4); Hematocrit 38.8 % (42.0-52.0); Hemoglobin 12.4 g/dl (14.0-18.0); Imm Gran Abs Auto 0.01 X10*3/uL (0.00-0.03); Imm Gran Pct Auto 0.2 % (0.0-0.4); Lymphocytes Absolute Auto 1.7 X10*3/uL (1.2-4.9); Lymphocytes Percent Auto 27.8 % (20-40); Mean Corpuscular Hemoglobin 28.9 pg (27.0-33.0); Mean Corpuscular Volume 90.4 fL (80.0-98.0); Mean Platelet Volume 10.2 fL (9.4-12.4); Monocytes Absolute Auto 0.4 X10*3/uL (0.1-1.2); Monocytes Percent Auto 7.3 % (2-11); Neutrophils Absolute Auto 3.5 x10*3/uL (2.0-8.3); Neutrophils Percent Auto 58.7 % (45-73); Platelet Count 216 X10*3/uL (160-400); Red Blood Count 4.29 X10*6/uL (4.60-5.80); Red Cell Distribution Width 12.2 % (11.0-16.0)
[2022-01-08 06:10] LABS: Alanine Aminotransferase 208 U/L (0-40); Albumin Level 3.5 g/dL (3.5-5.0); Alkaline Phosphatase 73 U/L (39-117); Aspartate Amino Transferase 116 U/L (5-37); Bilirubin Direct 1.1 mg/dL (0.0-0.5); Bilirubin Total 2.2 mg/dL (0.0-1.0); Total Protein 6.1 g/dL (6.5-8.0)
[2022-01-08] MEDS: 0.9 % Sodium Chloride 1,000 ML 100 ML IVCONT ×2 (06:24→13:55)
[2022-01-08 07:43] VITALS: BP 121/70; PULSE 57; RESP 18; TEMP 36.8; O2SAT 98
--- NOTE | 2022-01-08 08:32 | PM.PNGS ---
Subjective Subjective Date of Service: 01/08/22 <Maria R Lockwood PA-C - Last Filed: 01/08/22 08:42> 01/08/22 <Lex Mcconnell MD - Last Filed: 01/08/22 12:09> Interval history: Denies any abdominal pain this morning. Had some nausea with clear liquids last night. C/o back and b/l leg pain last night. Relieved by ambulating. <Maria R Lockwood PA-C - Last Filed: 01/08/22 08:42> Physical Exam Vital Signs: Vital Signs: Last Vital Signs Temp 98.2 F 01/08/22 07:43 Pulse 57 01/08/22 07:43 Resp 18 01/08/22 07:43 BP 121/70 01/08/22 07:43 Pulse Ox 98 01/08/22 07:43 BMI result Body Mass Index 27.8 <Maria R Lockwood PA-C - Last Filed: 01/08/22 08:42> Const: General: comfortable, no acute distress and alert <Maria R Lockwood PA-C - Last Filed: 01/08/22 08:42> Orientation/consciousness: patient oriented x3 <Maria R Lockwood PA-C - Last Filed: 01/08/22 08:42> Eyes: Sclerae: sclerae normal <Maria R Lockwood PA-C - Last Filed: 01/08/22 08:42> Resp: Effort & Inspection: normal respiratory effort <Maria R Lockwood PA-C - Last Filed: 01/08/22 08:42> GI: Inspection: No distended <Maria R Lockwood PA-C - Last Filed: 01/08/22 08:42> Palpation (GI): Soft to palpation, nontender and no guarding <JODI Small Last Filed: 01/08/22 08:42> Percussion: Yes normal to percussion <JODI Small Last Filed: 01/08/22 08:42> Skin: General skin exam: no rashes or lesions noted <JODI Small Last Filed: 01/08/22 08:42> Neuro: General: patient oriented x3 <Maria R Lockwood PA-C - Last Filed: 01/08/22 08:42> Extrem: General: Yes no clubbing, cyanosis or edema <Maria R Lockwood PA-C - Last Filed: 01/08/22 08:42> Objective Data Active Medications Acetaminophen (Acetaminophen 325 Mg Tablet) 650 mg PO Q6H PRN PRN Reason: fever, pain Last Admin: 01/07/22 13:46 Dose: 650 mg Documented by: OZZY Sodium Chloride (Ns) 1,000 mls @ 100 mls/hr IVCONT .Q10H [facility] Last Admin: 01/08/22 06:24 Dose: 100 mls/hr Documented by: PASQUALE Morphine Sulfate (Morphine Sulfate 4 Mg/Ml Cartridge) 4 mg IVPUSH Q4H PRN; Protocol PRN Reason: Pain, Severe (Pain Scale 7-10) Last Admin: 01/08/22 03:32 Dose: 4 mg Documented by: PASQUALE Ondansetron HCl (Ondansetron Hcl 4 Mg/2 Ml Vial) 4 mg IVPUSH Q8H PRN PRN Reason: nausea/vomiting Last Admin: 01/08/22 03:38 Dose: 4 mg Documented by: PASQUALE Pharmacy Consult (Consult Rx Perform Med Rec) 1 each MISCELLANE ONCE PRN PRN Reason: Consult order Sodium Chloride (0.9 % Sodium Chloride Flush 3 Ml Syringe) 3 ml IVFLUSH QSHIFT [facility] Last Admin: 01/08/22 07:11 Dose: Not Given Documented by: KODI Non-Admin Reason: IV Running <Maria R Lockwood PA-C - Last Filed: 01/08/22 08:42> Labs CBC & Chem 7: : 01/08/22 05:30 01/07/22 05:32 <Maria R Lockwood PA-C - Last Filed: 01/08/22 08:42> Labs: Laboratory Results - last 24 hr 01/08/22 01/08/22 05:29 05:30 MCV 90.4 MCH 28.9 MCHC 32.0 RDW 12.2 Plt Count 216 MPV 10.2 Immature Gran % (Auto) 0.2 Neut % (Auto) 58.7 Lymph % (Auto) 27.8 [place] % (Auto) 7.3 Eos % (Auto) 5.2 H Baso % (Auto) 0.8 Lymph # (Auto) 1.7 [place] # (Auto) 0.4 Eos # (Auto) 0.3 Baso # (Auto) 0.1 Abs Immat Gran (auto) 0.01 Absolute Neuts (auto) 3.5 Absolute Nucleated RBC 0.000 Nucleated RBC % (auto) 0.0 Total Bilirubin 2.2 H Direct Bilirubin 1.1 H AST 116 H ALT 208 H Alkaline Phosphatase 73 Total Protein 6.1 L Albumin 3.5 <Maria R Lockwood PA-C - Last Filed: 01/08/22 08:42> Microbiology Microbiology Results: Microbiology 01/06/22 20:14 Blood Culture - Preliminary Blood - Venous No growth after 24 hours. 01/06/22 20:05 Blood Culture - Preliminary Blood - Venous No growth after 24 hours. <Maria R Lockwood PA-C - Last Filed: 01/08/22 08:42> Procedures Date of Service Date of Service: 01/08/22 <Maria R Lockwood PA-C - Last Filed: 01/08/22 08:42> Progress Note: A&P Assessment and plan (1) Elevated liver enzymes: Status: Acute <Maria R Lockwood PA-C - Last Filed: 01/08/22 08:42> Assessment and Plan: feels much better LFTs have improved markedly appreciate GI input - does not appear to need ERCP likely to have passed stone/thick sludge causing transient CBD obstruction explained option of proceeding with cholecystectomy to prevent recurrence reviewed technique of lap cristhian and possible open explained risks including but not limited to bleeding, infections, injury to bowel, liver and bile duct, retained stones, bile leak, as well as the benefits and alternatives he wants to proceed was with him during discussion he is hungry- ok to advance diet, NPO post MN tonignt for OR tomorrow seen and examined independently - agree w/SCOTT Lockwood <Lex Mcconnell MD - Last Filed: 01/08/22 12:09> Plan 46 year old male admitted with epigastric/RUQ pain radiating to the back found to have elevated LFTs. MRCP performed yesterday revealed no CBD obstruction. Seen by GI who recommended holding off on ERCP. LFTs now trending down. Pain likely due to passed CBD stone. He feels improved this morning without any abdominal pain. Discussed proceeding with laparoscopic cholecystectomy possible open during this admission to prevent recurrence or advancing to low fat diet and if tolerating, home with plans for elective CCY. He would prefer to proceed during this admission. He was added onto the OR schedule tentatively for tomorrow if his LFTs continue to improve. Patient comfortable with plan. Encouraged OOB and ambulation for back pain. Hot/ice packs as needed. <Maria R Lockwood PA-C - Last Filed: 01/08/22 08:42> Fall Risk Details Current Medications: Current Medications Acetaminophen (Acetaminophen 325 Mg Tablet) 650 mg PO Q6H PRN PRN Reason: fever, pain Last Admin: 01/07/22 13:46 Dose: 650 mg Documented by: Sodium Chloride (Ns) 1,000 mls @ 100 mls/hr IVCONT .Q10H [facility] Last Admin: 01/08/22 06:24 Dose: 100 mls/hr Documented by: Morphine Sulfate (Morphine Sulfate 4 Mg/Ml Cartridge) 4 mg IVPUSH Q4H PRN; Protocol PRN Reason: Pain, Severe (Pain Scale 7-10) Last Admin: 01/08/22 03:32 Dose: 4 mg Documented by: Ondansetron HCl (Ondansetron Hcl 4 Mg/2 Ml Vial) 4 mg IVPUSH Q8H PRN PRN Reason: nausea/vomiting Last Admin: 01/08/22 03:38 Dose: 4 mg Documented by: Pharmacy Consult (Consult Rx Perform Med Rec) 1 each MISCELLANE ONCE PRN PRN Reason: Consult order Sodium Chloride (0.9 % Sodium Chloride Flush 3 Ml Syringe) 3 ml IVFLUSH QSHIFT [facility] Last Admin: 01/08/22 07:11 Dose: Not Given Documented by: <Maria R Lockwood PA-C - Last Filed: 01/08/22 08:42> Time Spent With Patient Time: Total time spent is greater than 50% in coordination of care (as documented) at patient's floor/unit and/or counseling patient: <Maria R Lockwood PA-C - Last Filed: 01/08/22 08:42> Quality Stroke Does the patient have a stroke diagnosis?: No <Maria R Lockwodo PA-C - Last Filed: 01/08/22 08:42> VTE Prior VTE?: No <Maria R Lockwood PA-C - Last Filed: 01/08/22 08:42> VTE Risk Level:: Surgical - low <Maria R Lockwood PA-C - Last Filed: 01/08/22 08:42> VTE Device Contraindication: N/A - Device Ordered <Maria R Lockwood PA-C - Last Filed: 01/08/22 08:42> VTE Drug Contraindication: Treatment Not Indicated <Maria R Lockwood PA-C - Last Filed: 01/08/22 08:42>
--- NOTE | 2022-01-08 10:56 | MHC.CLN ---
PT WITH 34# OR MORE OF WT LOSS ON NURSING ADMISSION ASSESSMENT PT REPORTS LAPAROSCOPIC SLEEVE GASTRECTOMY X 10 MONTHS AGO IN [facility] PT REPORTS LOSING 130# S/P SX WHICH WAS INTENTIONAL DIET RX: C/L-APPROPRIATE PT SCHEDULED FOR CHOLECYSTECTOMY TOMORROW NO INTERVENTIONS AT THIS TIME SEE CLINICAL NUTRITION RISK ASSESSMENT
[2022-01-08 11:29] VITALS: BP 123/81; PULSE 56; RESP 18; TEMP 37; O2SAT 98
[2022-01-08 15:36] VITALS: BP 120/69; PULSE 66; RESP 18; TEMP 36.6; O2SAT 98
[2022-01-08] MEDS: oxyCODONE HCl Immed Release 5 MG TABLET PO ×2 (17:34→23:54)
[2022-01-08 19:37] VITALS: BP 123/58; PULSE 70; RESP 18; TEMP 36.9; O2SAT 97
[2022-01-08 23:24] VITALS: BP 123/72; PULSE 53; RESP 16; TEMP 36.1; O2SAT 96
[2022-01-08] MEDS: 0.9 % Sodium Chloride Flush 3 ML SYRINGE IVFLUSH (23:49)
[2022-01-09] VITALS (11 sets, daily range): BP systolic 118–151; BP diastolic 68–90; PULSE 53–78; RESP 16–18; TEMP 36.2–36.7; O2SAT 95–100
[2022-01-09] MEDS: 0.9 % Sodium Chloride 1,000 ML 100 ML IVCONT (02:44)
[2022-01-09 06:28] LABS: Alanine Aminotransferase 153 U/L (0-40); Albumin Level 3.8 g/dL (3.5-5.0); Alkaline Phosphatase 73 U/L (39-117); Aspartate Amino Transferase 63 U/L (5-37); Bilirubin Direct 0.9 mg/dL (0.0-0.5); Bilirubin Total 1.7 mg/dL (0.0-1.0); Total Protein 6.8 g/dL (6.5-8.0)
[2022-01-09] MEDS: Morphine Sulfate 4 MG/ML CARTRIDGE IVPUSH (07:14)
--- NOTE | 2022-01-09 08:43 | PM.EVENT ---
Event Note Date of Service: 01/09/22 Event Note: He denies abdominal pain He does complain of low back pain shooting down to the posterior thigh and leg overnight Says this can be worse with bending forward He is able to walk comfortably Good motor strength on exam No sensory deficits Back pain seems to be consistent with sciatica, bilateral Will proceed with lap cholecystectomy today Bilirubin continues to improve
--- NOTE | 2022-01-09 09:15 | HO.ANESPROP2 ---
[facility] Active Problems Active Problems: All Active Problems (Updated 01/09/22 @ 08:52 by Lex Mcconnell MD) Gallstones (Acute) Elevated liver enzymes (Acute) S/P bariatric surgery (Acute) PVD (peripheral vascular disease) (Acute) Obese (Acute) Excess skin of abdomen (Acute) Cervical spine pain (Acute) Bleeding hemorrhoids (Acute) Cholecystitis (Acute) Vitamin D deficiency (Acute) HLD (hyperlipidemia) (Acute) HTN (hypertension) (Acute) T2DM (type 2 diabetes mellitus) (Acute) Past Medical History Medical History (Updated 01/09/22 @ 08:52 by Lex Mcconnell MD) Elevated liver enzymes Gallstones HLD (hyperlipidemia) Vitamin D deficiency Family History Family History Father Mental problem Substance abuse Mother Diabetes Cardiac arrest Family history of problems with anesthesia: No Surgical History Surgical History (Updated 01/07/22 @ 10:07 by Maria R Lockwood PA-C) History of carpal tunnel release History of sleeve gastrectomy History of Problems with Anesthesia: No Social History Social History Household Members: Significant Other and Family Household Members Other:: 3 Housing: Apartment Do you presently have visiting nurse or other home services: No Alcohol intake: current Alcohol intake frequency: a few times a week Patient Tobacco Use Status: Never used Tobacco e-Cigarette/Vaping Use: Never Used Second Hand Smoke Exposure: No Use of substances other than those prescribed or required for medical reasons: Yes Substance Use Type: Marijuana Substance Use Frequency: Daily Last Used Substance: Just Prior to Admission Last Used Substance Other:: 01/05/22 Currently Displaying Signs/Symptoms of Drug Intoxication Withdrawal: No Any prior treatment program specific to substance use: No Have you been hit, kicked, punched, or otherwise hurt by someone within the past year? If so, by whom?: No Do you feel safe in your current relationship?: Yes Is there a partner from a previous relationship who is making you feel unsafe now?: No Are you made to feel afraid or neglected: No Spiritual Healthcare Practices: tenriism Advance Directives: No Advance Directives Information Provided: No Do you have thoughts of harming others: None Do you have a plan to hurt others: No Plan Recently lost weight without trying: No How much weight loss: 34pounds or more Eating poorly because of decreased appetite: No Nutrition screen score: 4 Nutrition Risks: No Nutritional Risk Poor oral hygiene: No service: No Current occupational status: employed 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 Meds Allergies Allergy/AdvReac Type Severity Reaction Status Date / Time No Known Allergies Allergy Verified 08/22/21 11:21 Active Medications: Current Medications Acetaminophen (Acetaminophen 325 Mg Tablet) 650 mg PO Q6H PRN PRN Reason: fever, pain Last Admin: 01/07/22 13:46 Dose: 650 mg Documented by: Sodium Chloride (Ns) 1,000 mls @ 100 mls/hr IVCONT .Q10H [facility] Last Admin: 01/09/22 02:44 Dose: 100 mls/hr Documented by: Cefotetan Disodium 2 gm/ (Sodium Chloride) 50 mls @ 100 mls/hr IV PREOP ONE Stop: 01/09/22 10:05 Morphine Sulfate (Morphine Sulfate 4 Mg/Ml Cartridge) 4 mg IVPUSH Q4H PRN; Protocol PRN Reason: Pain, Severe (Pain Scale 7-10) Last Admin: 01/09/22 07:14 Dose: 4 mg Documented by: Ondansetron HCl (Ondansetron Hcl 4 Mg/2 Ml Vial) 4 mg IVPUSH Q8H PRN PRN Reason: nausea/vomiting Last Admin: 01/08/22 13:25 Dose: 4 mg Documented by: Oxycodone HCl (Oxycodone Hcl Immed Release 5 Mg Tablet) 5 mg PO Q4H PRN PRN Reason: Pain, Moderate (Pain Scale 4-6 Last Admin: 01/08/22 23:54 Dose: 5 mg Documented by: Pharmacy Consult (Consult Rx Perform Med Rec) 1 each MISCELLANE ONCE PRN PRN Reason: Consult order Sodium Chloride (0.9 % Sodium Chloride Flush 3 Ml Syringe) 3 ml IVFLUSH [facility] Last Admin: 01/09/22 07:18 Dose: Not Given Documented by: Home Medications Medication Instructions Recorded Confirmed Last Taken Type No Known Home Meds 01/06/22 01/06/22 Unknown History Exam Exam Date and Time: January 09, 2022 0915 Height,Weight and Vital Signs: Height 6 ft Weight 92.986 kg Last Vital Signs Temp 97.3 F 01/09/22 08:49 Pulse 63 01/09/22 08:49 Resp 18 01/09/22 08:49 BP 131/84 01/09/22 08:49 Pulse Ox 99 01/09/22 08:49 Pertinent Lab Results Pertinent Lab Results: Laboratory Tests 01/06/22 01/06/22 01/06/22 15:31 15:31 15:31 WBC 10.6 RBC 5.07 Hgb 14.6 Hct 45.5 MCV 89.7 MCH 28.8 MCHC 32.1 RDW 12.3 Plt Count 271 MPV 10.0 Immature Gran % (Auto) 0.3 Neut % (Auto) 64.0 Lymph % (Auto) 23.4 [place] % (Auto) 9.4 Eos % (Auto) 2.3 Baso % (Auto) 0.6 Lymph # (Auto) 2.5 [place] # (Auto) 1.0 Eos # (Auto) 0.2 Baso # (Auto) 0.1 Abs Immat Gran (auto) 0.03 Absolute Neuts (auto) 6.8 Absolute Nucleated RBC 0.000 Nucleated RBC % (auto) 0.0 PT 13.1 H INR 1.2 H D-Dimer High Sensitivty Sodium 139 Potassium 4.0 Chloride 104 Carbon Dioxide 28 Anion Gap 11 L BUN 16 Creatinine 0.97 Estim Creat Clear Calc 102.2 Estimated GFR > 60 Random Glucose 94 Lactic Acid Calcium 8.9 Magnesium 2.2 Total Bilirubin 3.5 H Direct Bilirubin 2.2 H AST 212 H ALT 129 H Alkaline Phosphatase 70 D Troponin I High Sens Total Protein 7.2 Albumin 4.0 Lipase 52 COVID-19 ([facility]) COVID-19 Clin Com 01/06/22 01/06/22 01/06/22 15:31 15:31 15:31 WBC RBC Hgb Hct MCV MCH MCHC RDW Plt Count MPV Immature Gran % (Auto) Neut % (Auto) Lymph % (Auto) [place] % (Auto) Eos % (Auto) Baso % (Auto) Lymph # (Auto) [place] # (Auto) Eos # (Auto) Baso # (Auto) Abs Immat Gran (auto) Absolute Neuts (auto) Absolute Nucleated RBC Nucleated RBC % (auto) PT INR D-Dimer High Sensitivty < 150 Sodium Potassium Chloride Carbon Dioxide Anion Gap BUN Creatinine Estim Creat Clear Calc Estimated GFR Random Glucose Lactic Acid 1.4 Calcium Magnesium Total Bilirubin Direct Bilirubin AST ALT Alkaline Phosphatase Troponin I High Sens < 3.5 Total Protein Albumin Lipase COVID-19 ([facility]) COVID-19 Clin Com 01/06/22 01/06/22 01/06/22 19:56 20:06 23:24 WBC 7.3 RBC 4.56 L Hgb 13.2 L Hct 41.1 L MCV 90.1 MCH 28.9 MCHC 32.1 RDW 12.2 Plt Count 245 MPV 10.0 Immature Gran % (Auto) Neut % (Auto) Lymph % (Auto) [place] % (Auto) Eos % (Auto) Baso % (Auto) Lymph # (Auto) [place] # (Auto) Eos # (Auto) Baso # (Auto) Abs Immat Gran (auto) Absolute Neuts (auto) Absolute Nucleated RBC 0.000 Nucleated RBC % (auto) 0.0 PT INR D-Dimer High Sensitivty Sodium Potassium Chloride Carbon Dioxide Anion Gap BUN Creatinine Estim Creat Clear Calc Estimated GFR Random Glucose Lactic Acid 0.8 Calcium Magnesium Total Bilirubin Direct Bilirubin AST ALT Alkaline Phosphatase Troponin I High Sens Total Protein Albumin Lipase COVID-19 ([facility]) Negative COVID-19 Clin Com See Note 01/07/22 01/07/22 01/08/22 05:32 05:32 05:29 WBC 6.1 RBC 4.54 L Hgb 13.1 L Hct 40.9 L MCV 90.1 MCH 28.9 MCHC 32.0 RDW 12.2 Plt Count 235 MPV 10.5 Immature Gran % (Auto) 0.3 Neut % (Auto) 60.7 Lymph % (Auto) 24.8 [place] % (Auto) 9.4 Eos % (Auto) 4.1 H Baso % (Auto) 0.7 Lymph # (Auto) 1.5 [place] # (Auto) 0.6 Eos # (Auto) 0.3 Baso # (Auto) 0.0 Abs Immat Gran (auto) 0.02 Absolute Neuts (auto) 3.7 Absolute Nucleated RBC 0.000 Nucleated RBC % (auto) 0.0 PT INR D-Dimer High Sensitivty Sodium 140 Potassium 4.5 Chloride 108 Carbon Dioxide 26 Anion Gap 11 L BUN 14 Creatinine 0.99 Estim Creat Clear Calc 100.1 Estimated GFR > 60 Random Glucose 93 Lactic Acid Calcium 8.7 Magnesium Total Bilirubin 4.9 H 2.2 H Direct Bilirubin 1.1 H AST 274 H 116 H ALT 305 H 208 H Alkaline Phosphatase 70 73 Troponin I High Sens Total Protein 6.1 L 6.1 L Albumin 3.4 L 3.5 Lipase COVID-19 ([facility]) COVID-19 Clin Com 01/08/22 01/09/22 05:30 05:44 WBC 6.0 RBC 4.29 L Hgb 12.4 L Hct 38.8 L MCV 90.4 MCH 28.9 MCHC 32.0 RDW 12.2 Plt Count 216 MPV 10.2 Immature Gran % (Auto) 0.2 Neut % (Auto) 58.7 Lymph % (Auto) 27.8 [place] % (Auto) 7.3 Eos % (Auto) 5.2 H Baso % (Auto) 0.8 Lymph # (Auto) 1.7 [place] # (Auto) 0.4 Eos # (Auto) 0.3 Baso # (Auto) 0.1 Abs Immat Gran (auto) 0.01 Absolute Neuts (auto) 3.5 Absolute Nucleated RBC 0.000 Nucleated RBC % (auto) 0.0 PT INR D-Dimer High Sensitivty Sodium Potassium Chloride Carbon Dioxide Anion Gap BUN Creatinine Estim Creat Clear Calc Estimated GFR Random Glucose Lactic Acid Calcium Magnesium Total Bilirubin 1.7 H Direct Bilirubin 0.9 H AST 63 H ALT 153 H Alkaline Phosphatase 73 Troponin I High Sens Total Protein 6.8 Albumin 3.8 Lipase COVID-19 ([facility]) COVID-19 Clin Com Airway Mallampati Class: II TM Dist: >3cm Neck ROM: Full Assessment and Plan Assessment Anesthesia Assessment: Anesthesia Plan Discussed and Chart Reviewed Final Anesthetic Review Family History of Problems with Anesthesia: No History of Problems with Anesthesia: No NPO: Yes ASA Class: II Final Preanesthetic Review: No Changes in Pt Med Stat, Meds/Allgs Chart Reviewed, Consent Obtained/Reviewed and Anes Risks/Benef Reviewed Patient Risk: Intermediate Procedure Risk: Intermediate Anesthetic Plan Anesthetic Plan: GA Disposition: Standard PACU
--- NOTE | 2022-01-09 09:31 | HO.PM.IMCN ---
History of Present Illness Data of Consult Service Date: 01/09/22 Primary Care Provider: Kings Garay PA-C HPI Reason for consult: Radiating back pain This is a 46 yo M with a PMH of HTN, T2DM, Vit D def, HLD who is admitted under the general surgery services. The patient presented to the ED on 01/07/22 with complaints of abdominal pain. He was found to have elevated LFTs. MRCP completed showed no CBD dilatation and no stones. LFTs have been attributed to a passed stone and he is planned for cholecystectomy today. Medical consult requested this AM as the patient has back pain radiating down to the bilateral posterior legs. Patient is seen and examined in his room. He reports back pain which he first noticed on the day of admission. He does endorse R sided back pain in his youth which required steroid (presumed) injections. Since then, he has intermittent back pain but nothing this dramatic. He reports his pain is equal on both sides. He denies any saddle anesthesia. He denies any urinary retetion or stool incontinence. He denies any weakness of the LE and in fact states that his pain is less prominent when he walks. He reports pain worsened with supine positioning. Improved by leaning forward. No reports of fevers or chills. Review of Systems Review of Systems: negative except HPI [facility] Medical History Elevated liver enzymes Gallstones HLD (hyperlipidemia) Vitamin D deficiency Family History Father Mental problem Substance abuse Mother Diabetes Cardiac arrest Surgical History History of carpal tunnel release History of sleeve gastrectomy Social History Household Members: Significant Other and Family Household Members Other:: 3 Housing: Apartment Do you presently have visiting nurse or other home services: No Alcohol intake: current Alcohol intake frequency: a few times a week Patient Tobacco Use Status: Never used Tobacco e-Cigarette/Vaping Use: Never Used Second Hand Smoke Exposure: No Use of substances other than those prescribed or required for medical reasons: Yes Substance Use Type: Marijuana Substance Use Frequency: Daily Last Used Substance: Just Prior to Admission Last Used Substance Other:: 01/05/22 Currently Displaying Signs/Symptoms of Drug Intoxication Withdrawal: No Any prior treatment program specific to substance use: No Have you been hit, kicked, punched, or otherwise hurt by someone within the past year? If so, by whom?: No Do you feel safe in your current relationship?: Yes Is there a partner from a previous relationship who is making you feel unsafe now?: No Are you made to feel afraid or neglected: No Spiritual Healthcare Practices: anglican Advance Directives: No Advance Directives Information Provided: No Do you have thoughts of harming others: None Do you have a plan to hurt others: No Plan Recently lost weight without trying: No How much weight loss: 34pounds or more Eating poorly because of decreased appetite: No Nutrition screen score: 4 Nutrition Risks: No Nutritional Risk Poor oral hygiene: No service: No Current occupational status: employed 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 Meds Allergies Allergy/AdvReac Type Severity Reaction Status Date / Time No Known Allergies Allergy Verified 08/22/21 11:21 Active Medications: Current Medications Acetaminophen (Acetaminophen 325 Mg Tablet) 650 mg PO Q6H PRN PRN Reason: fever, pain Last Admin: 01/07/22 13:46 Dose: 650 mg Documented by: Fentanyl (Fentanyl Citrate/Pf 100 Mcg/2 Ml Vial) 50 mcg IVPUSH Q5M PRN; Protocol PRN Reason: Pain, Severe (Pain Scale 7-10) Sodium Chloride (Ns) 1,000 mls @ 100 mls/hr IVCONT .Q10H [facility] Last Admin: 01/09/22 02:44 Dose: 100 mls/hr Documented by: Cefotetan Disodium 2 gm/ (Sodium Chloride) 50 mls @ 100 mls/hr IV PREOP ONE Stop: 01/09/22 10:05 Morphine Sulfate (Morphine Sulfate 4 Mg/Ml Cartridge) 4 mg IVPUSH Q4H PRN; Protocol PRN Reason: Pain, Severe (Pain Scale 7-10) Last Admin: 01/09/22 07:14 Dose: 4 mg Documented by: Ondansetron HCl (Ondansetron Hcl 4 Mg/2 Ml Vial) 4 mg IVPUSH Q8H PRN PRN Reason: nausea/vomiting Last Admin: 01/08/22 13:25 Dose: 4 mg Documented by: Ondansetron HCl (Ondansetron Hcl 4 Mg/2 Ml Vial) 4 mg IVPUSH ONCE PRN PRN Reason: Nausea and Vomiting Oxycodone HCl (Oxycodone Hcl Immed Release 5 Mg Tablet) 5 mg PO Q4H PRN PRN Reason: Pain, Moderate (Pain Scale 4-6 Last Admin: 01/08/22 23:54 Dose: 5 mg Documented by: Oxycodone HCl (Oxycodone Hcl Immed Release 5 Mg Tablet) 10 mg PO ONCE PRN PRN Reason: Pain, Severe (Pain Scale 7-10) Pharmacy Consult (Consult Rx Perform Med Rec) 1 each MISCELLANE ONCE PRN PRN Reason: Consult order Sodium Chloride (0.9 % Sodium Chloride Flush 3 Ml Syringe) 3 ml IVFLUSH QSHIFT [facility] Last Admin: 01/09/22 07:18 Dose: Not Given Documented by: Home Medications Medication Instructions Recorded Confirmed Last Taken Type No Known Home Meds 01/06/22 01/06/22 Unknown History Physical Exam Vital Signs and Narrative: Vital Signs: Last Vital Signs Temp 97.3 F 01/09/22 08:49 Pulse 63 01/09/22 08:49 Resp 18 01/09/22 08:49 BP 131/84 01/09/22 08:49 Pulse Ox 99 01/09/22 08:49 BMI result Body Mass Index 27.8 Const: Other: Constitutional - Awake and Alert, No apparent distress Eyes - PERRLA, EOMI Cardiovascular - S1S2, RRR, No edema Respiratory - Normal lung expansion, Normal respiratory effort, No respiratory distress, CTA bilaterally Gastrointestinal - NT / ND; +BS; No rebound or guarding - No CVA tenderness Extremities - no calf tenderness bilaterally, no swelling Musculoskeletal - Normal inspection, normal ROM; SLR+ b/l Skin - Warm/Dry Neurological - Alert & oriented x3, No focal deficit; b/l LE strenght equal; no hyper/hypo-reflexia in the LE; sensation in tact; normal gait Psychological - Appropriate affect Results Labs CBC and Chem 7: 01/08/22 05:30 01/07/22 05:32 Labs: Laboratory Results - last 24 hr 01/09/22 05:44 Total Bilirubin 1.7 H Direct Bilirubin 0.9 H AST 63 H ALT 153 H Alkaline Phosphatase 73 Total Protein 6.8 Albumin 3.8 Assessment and Plan (1) Back pain: Status: Acute Plan 46 yo M admitted under the surgical services for RUQ pain and found to have elevated LFTs likely secondary to a passed gall stone. Medical consult requested for back pain. 1. Back pain, likely sciatica no alarm symptoms of cord compression -- no saddle anesthesia, no urinary retention / stool in continence has had prior episodes in his youth, but was unilateral will need outpatient f/u with PCP. PT may help. PO analgesics. If persists 4-6 weeks or worsening of symptoms/alarm symptoms, would warrant further imaging more urgently. at this time, no imaging studies are needed prior to surgery Will sign off. Please reconsult if questions.
[2022-01-09] MEDS: cefoTEtan disodium 2 GM in 0.9 % Sodium Chloride 50 ML IV (09:53)
--- NOTE | 2022-01-09 11:00 | P.OP_ITS ---
Operative Note Operative Note Date of Service: 01/09/22 Narrative: Preop diagnosis: Gallstones, with recent elevated bilirubin Postop diagnosis: Gallstones, acute cholecystitis, recent elevated bilirubin Procedure: Laparoscopic cholecystectomy surgeon: Lex Mcconnell MD The patient is a 46-year-old male admitted because epigastric and right upper quadrant pain with note of markedly elevated bilirubin. His imaging study showed gallstones/sludge with some mild thickening of the gallbladder. MRCP did not reveal any CBD stones. His bilirubin levels eventually dropped down significantly. Overall clinical findings were consistent with passage of a stone or thick sludge the common bile duct causing transient elevation of the bilirubin. He understood the technique of laparoscopic cholecystectomy and possible open cholecystectomy. He was aware of the risks, benefits, and alternatives. He wanted to proceed with surgery to avoid future recurrences. He was brought to the operating room. He was placed supine on the table under general anesthesia via endotracheal tube. The abdomen is prepped and draped in the usual sterile fashion. A surgical time-out was done. The patient received Cefotan 2 g IV preoperatively I made a short supra umbilical incision using blade 15. This was carried down through the full-thickness skin subcutaneous fat down to the fascia. The fascia was incised. The peritoneum was entered. Through this incision a Cachorro port was introduced. Pneumoperitoneum was introduced to a pressure of 15 mm hg. From here on the rest of procedure was done under vision with the 10 mm laparoscope. A 5/12 mm port introduced a small incision in the epigastric area below the subcostal margin. Two 5 mm ports introduced small incisions below the subcostal margin along the anterior axillary line and the midclavicular line. Graspers were placed through these working ports. The patient was placed in head-up and [id number] position. The gallbladder was seen and this markedly distended and erythematous. There was also note of some adherent omentum on the lower quadrant towards the abdominal wall so we had to carefully lyse this using the Metzenbaum scissors I was eventually able to visualize the entire gallbladder. In view of dis tension, we had decompress this wiith an an aspirating needle. I was eventually able to apply grasper towards the fundus and this was used to retract the gallbladder cephalad. Another grasper was placed towards the pouch of the gallbladder near the neck. This was used to retract the her laterally. At this point therefore the gallbladder was being retracted in a cephalad and lateral fashion to put the cystic duct on stretch. The gallbladder was erythematous consistent with acute cholecystitis with a little bit of edema. I proceeded to carefully dissect the neck of the gallbladder by stripping off its peritoneum. I continued to do this bluntly with the [place] dissector until was able to clearly identify the cystic duct. By doing so I was also able to achieve a critical view of the hepatocystic triangle. There were no other tubular structures in this area. The lymph node of Calot was also visualized. I was able to clearly define the confluence of the neck although of the gallbladder with the cystic duct. I carefully dissected this with the [place] dissector and then applied clips with 2 clips being applied distally. The cystic duct was transected between clips. The cystic duct was retracted above the level of the lymph node. I was able to visualize the cystic artery clearly. I applied clips and this was retracted between clips with Endo scissors as well. With retraction on the gallbladder away from the liver bed, I was able to then clearly visualize the rest of the hilum. I this with the electrocautery spatula all the way to the interface of the gallbladder wall and the liver bed. I made an incision on the Rodriguez of the gallbladder using the electrocautery spatula and proceeded to define a plane of dissection between the gallbladder and liver bed. I the gallbladder using a combination of blunt dissection with the tip of the spatula and electrocautery itself all the way to the fundus until the entire gallbladder was completely . The gallbladder was retrieved through an endobag through the umbilical incision. I reinserted all ports and re-insufflated. I examined area of dissection. There was noted to be dry without any evidence of bleeding or any bile leak I observed all 4 quadrants and there was no other pathology or any evidence of bowel injury. With hemostasis ensured, I then proceeded to desufflate the port sites. I removed all ports under vision with the laparoscope and there was no bleeding. I removed the Cachorro port last The fascia of the umbilical incision was closed with [id number] Dexon 0 stitch. Skin closure was achieved on all incisions using Dexon 4-0 subcuticular running sutures. Steri-Strips and dressings were applied. All incisions were infiltrated with Marcaine 0.5% for postop analgesia. The procedure was completed. He The patient tolerated procedure well. There were no complication noted. Initial and final counts of sponges and instruments were correct. Estimated blood loss was about 25 cc The patient was extubated without difficulty and transferred to the recovery room with stable vital signs.
[2022-01-09] MEDS: Acetaminophen 325 MG TABLET 650 MG PO ×2 (11:30→17:15)
[2022-01-09] MEDS: oxyCODONE HCl Immed Release 5 MG TABLET PO ×2 (11:31→15:44)
[2022-01-09] MEDS: ondansetron HCL 4 MG/2 ML VIAL IVPUSH (13:30)
--- NOTE | 2022-01-09 14:41 | PM.EVENT ---
Event Note Date of Service: 01/09/22 Event Note: Patient seen postop He had undergone uneventful laparoscopic cholecystectomy earlier today Seems to have good pain control Abdomen soft Stable vital signs Dressings dry Also says that he has pain and leg pain have resolved Okay to DC home later today once he is comfortable I explained discharge instructions to the patient and his Patti at bedside I will see him in the office for follow-up about 2 weeks.
--- NOTE | 2022-01-09 14:46 | MHC.CM.PN ---
PATIENT IS DISCHARGED HOME - SELF CARE RN AWARE OF PLAN.
--- NOTE | 2022-01-09 15:22 | PC.NURSE ---
PT RETURNED [facility] PACU AT 1215, AWAKE ALERT. DENIES PAIN . UP TO BR SEVERAL TIMES VOIDING WELL. SLIGHT NAUSEA WITH LUNCH ZOFRAN GIVEN. SLEPT IN NAPS. BED ALARM ON. PLAN FOR DISCHARGE WHEN FULL AWAKE.
--- NOTE | 2022-01-09 15:31 | P.DS_ITS ---
DS: Providers Provider Date of Service: 01/09/22 Date of admission: 01/06/22 22:30 Primary care physician: Kings Garay PA-C Attending physician on admission: Neha Gar Herman James Consults: 01/07/22 08:47 Consult to Gastroenterology Routine Consulting Provider: Deandre Louis Reason for consultation: elevated biliruibin 01/09/22 07:46 Consult to Hospitalist Routine Consulting Provider: Hospitalist Reason For Exam: worsening low back/bilateral leg pain Attending physician on discharge: Lex Mcconnell DS: Diagnosis Discharge Diagnosis (1) Back pain: Status: Acute DS: Summary Hospital Course Hospital Course: BRIEF HPI: Tomasz Cheung is a 46 year old male who presented to the ED with complaints of right chest/epigastric/RUQ pain. Patient was in his usual state of health when he developed acute onset of pain yesterday morning following breakfast of scrambled eggs and kielbasa. The pain was severe and radiated into his upper back. He tried to lay down but the pain got worse. It was associated with nausea and multiple episodes of vomiting. Denies fever, chills, diarrhea. Due to the severity of pain he presented to the ED for evaluation. ABD US/CT scan showed a distended gallbladder with echogenic sludge and wall thickening. No intra or extrahepatic biliary ductal dilatation seen. LFTs were elevated with total/direct bili of 3.9/2.2 and AST/ALT 212 and 129. Bilirubin up to 4.9 this morning. WBC count normal. He reports persistent pain this morning. Patient has history of laparoscopic sleeve gastrectomy a year ago in [place]. He has lost over 100lbs since the surgery and is off meds for diabetes mellitus, HTN, hyperlipidema. HOSPITAL COURSE: His overall clinical picture is suggestive of choledocholithiasis. He was admitted to the surgical service for further work up. An MRCP was ordered for further assessment of the bile ducts. GI consult was also obtained. He otherwise had a very benign exam and was clinically appearing well. The following day, his LFTs improved markedly. MRCP showed no CBD obstruction or dilatation. He likely passed stone/thick sludge causing transient CBD obstruction. GI also agreed and he did not appear to need ERCP. It was therefore discussed with him option of proceeding with cholecystectomy to prevent recurrence. He elected to proceed with the surgery and was added onto the OR schedule for the following day. His LFTs continued to improve. He did develop back pain without any alarming symptoms of cord compression, likely secondary to sciatica. On 01/09/22, a laparoscopic cholecystectomy was performed by Dr. Mcconnell without complication. The patient tolerated the procedure well, completed routine recovery in PACU. He was seen later that day post operatively and felt well. His pain was well controlled on PO analgesics. He was tolerating a solid diet. He was ambulating without difficulty. His abdomen was benign with appropriate post op tenderness and dressings were intact. He felt ready for discharge. He was discharged to home in stable condition on 01/09/22. He is to follow up with Dr. Mcconnell in office in 2 weeks. He is to follow up with his PCP regarding his back pain. Status at Discharge Functional status at discharge: independent ambulation Overall status at discharge: patient is progressing back to baseline Time Spent with Patient Time attestation: Total time spent providing and/or coordinating discharge services: Discharge coordination time: Less than 30 minutes Quality: Safe Use of Opioids Does Pt have an Active Cancer Diagnosis on the Problem List?: No Quality: Stroke Does the patient have a stroke diagnosis?: No Physical Exam Vital Signs: Vital Signs: Last Vital Signs Temp 98.1 F 01/09/22 15:30 Pulse 62 01/09/22 15:30 Resp 18 01/09/22 15:30 BP 123/68 01/09/22 15:30 Pulse Ox 95 01/09/22 15:30 BMI result Body Mass Index 27.8 Const: General: comfortable, no acute distress and alert Orientation/consciousness: patient oriented x3 GI: Inspection: No distended and Yes incision (dressings c/d/i) Palpation (GI): Soft to palpation Skin: General skin exam: no rashes or lesions noted Neuro: General: patient oriented x3 DS: Data Data Completed and Pending Completed studies during hospitalization [Text1]: 01/09/22 10:46 Surgical Path [Surgical] [PTH] Routine Gallbladder, cholecystectomy: Chronic cholecystitis; cholelithiasis. Procedures Resection of Gallbladder, Percutaneous Endoscopic Approach (01/06/22) Discharge Plan Discharge Patient Disposition: Home, Self-Care Discharge Diagnosis: Cholecystitis Referrals: Kings Garay PA-C [Primary Care Provider] - 1 Week Lex Mcconnell MD [Physician] - 1 Week Discharge Medications: New ibuprofen 600 mg tablet 600 mg PO Q6H PRN (Reason: pain) Qty: 30 0RF Discharge Orders: Discharge Order (Routine); Ordered 01/09/22 Ordered By: Lex Mcconnell Activity on Discharge: No heavy lifting Stand Alone Forms: Patient Portal Discharge page Activity Restrictions/Additional Instructions: If the incision area is tender, you may apply an ice pack for short intervals (No more than 20 minutes on, followed by at least 20 minutes off). Do not apply heat. Do not use creams, lotions, or topical antibiotics unless instructed to do so by your surgeon. These can cause infection or allergic reaction. OK to shower after 24 hours OK to change dressings with Bandaids after 24H No lifting more than 20 lbs No strenuous activities Call the office for follow-up in 2 weeks - with Dr. Mcconnell Call Your Doctor If: -Your temperature exceeds 101.5? F -You experience excessive pain or swelling -You have an unexpected reaction to medication -You have excessive bleeding -You experience continued vomiting/nausea -Your incision begins to separate -Your incision shows signs of infection such as increased redness, swelling, excessive pain, drainage (light blood or clear fluid is normal) or heat Care Plan Goals: Pain control Workup for back pain Health Concerns: Back pain Postop pain Plan of Treatment: Control well postop pain Workup for back pain with primary care physician Assessment: Doing well overall Discharge Date/Time: 01/09/22 17:56
[2022-01-09] MEDS: 0.9 % Sodium Chloride Flush 3 ML SYRINGE IVFLUSH (15:44)
== END 2022-01-09 17:56 | disposition home or self-care (01) | DRG 419 ==
LOC: HO.ED 19:58 → HO.EDOVER 22:55 → HO.S3 01-07 12:42
PROVIDERS: Nurse Practitioner Family; Physician Assistant Surgical; Surgery; Admitting Provider Surgery; Emergency Provider Emergency Medicine; PCP Physician Assistant; Visit Provider Surgery
PROC: 0FT44ZZ Resection of Gallbladder, Percutaneous Endoscopic Approach (ICD-10-PCS; CPT 47562; principal; 2022-01-09 09:30)
DX: K80.00 Calculus of gallbladder with acute cholecystitis without obstruction (principal); M54.32 Sciatica, left side; M54.31 Sciatica, right side; Z20.822 Contact with and (suspected) exposure to COVID-19; Z98.84 Bariatric surgery status
CPT/HCPCS: 36415; 74177; 74181; 76705; 80048; 80053; 80076; 83605; 83690; 83735; 84484; 85025; 85027; 85379; 85610; 87040; 87635; 88304; 93005; 96361; 96365; 96375; 96376; 99285; J1100; J1170; J2250; J2270; J2405; J2543; J3010; Q9967

== ENCOUNTER 2022-01-15 10:26 | Outpatient (REF) | payer OTHER, SELFPAY ==
[2022-01-15 10:59] LABS: MANUAL DIFF FLAG NO
[2022-01-15 11:52] LABS: Basophils Absolute Auto 0.1 X10*3/uL (0.0-0.2); Basophils Percent Auto 1.1 % (0-2); Eosinophils Absolute Auto 0.7 X10*3/uL (0.0-0.4); Eosinophils Percent Auto 9.1 % (0-4); Estimated Average Glucose 82 mg/dL; Hematocrit 39.8 % (42.0-52.0); Hemoglobin 12.7 g/dl (14.0-18.0); Hemoglobin A1c % 4.5 %; Imm Gran Abs Auto 0.02 X10*3/uL (0.00-0.03); Imm Gran Pct Auto 0.3 % (0.0-0.4); Lymphocytes Absolute Auto 2.1 X10*3/uL (1.2-4.9); Lymphocytes Percent Auto 27.6 % (20-40); Mean Corpuscular HGB Conc 31.9 g/dl (31.0-36.0); Mean Corpuscular Hemoglobin 28.8 pg (27.0-33.0); Mean Corpuscular Volume 90.2 fL (80.0-98.0); Mean Platelet Volume 11.2 fL (9.4-12.4); Monocytes Absolute Auto 0.6 X10*3/uL (0.1-1.2); Monocytes Percent Auto 7.8 % (2-11); Neutrophils Absolute Auto 4.1 x10*3/uL (2.0-8.3); Neutrophils Percent Auto 54.1 % (45-73); Platelet Count 286 X10*3/uL (160-400); Red Blood Count 4.41 X10*6/uL (4.60-5.80); Red Cell Distribution Width 12.2 % (11.0-16.0); White Blood Count 7.6 X10*3/uL (4.8-10.8)
[2022-01-15 12:28] LABS: Creatinine Urine 146.26 mg/dL; Microalbum/Creatinine Ratio Ur 4.1 ug/mg cr
[2022-01-15 12:33] LABS: TSH reflex Free T4 1.01 uIU/mL (0.32-4.0)
[2022-01-15 12:39] LABS: Alanine Aminotransferase 32 U/L (0-40); Albumin Level 3.7 g/dL (3.5-5.0); Alkaline Phosphatase 57 U/L (39-117); Anion Gap 11 (12-20); Aspartate Amino Transferase 16 U/L (5-37); Bilirubin Direct 0.8 mg/dL (0.0-0.5); Bilirubin Total 1.7 mg/dL (0.0-1.0); Blood Urea Nitrogen 15 mg/dL (9-16); Carbon Dioxide 29 mmol/L (22-29); Chloride 102 mmol/L (96-108); Cholesterol 123 mg/dL; Estimated Glomerular Filt Rate > 60; Glucose Fasting 93 mg/dL (60-99); HDL Cholesterol 41 mg/dL; LDL Cholesterol Calculated 73 mg/dl; Sodium 138 mmol/L (135-145); Total Protein 6.6 g/dL (6.5-8.0); Triglycerides 49 mg/dL
== END 2022-01-15 10:27 | disposition home or self-care (01) ==
LOC: HO.LAB 10:26
PROVIDERS: PCP Physician Assistant; Visit Provider Nurse Practitioner Family
DX: E11.65 Type 2 diabetes mellitus with hyperglycemia (principal); I10 Essential (primary) hypertension; K80.20 Calculus of gallbladder without cholecystitis without obstruction; M54.9 Dorsalgia, unspecified; R74.8 Abnormal levels of other serum enzymes
CPT/HCPCS: 36415; 80048; 80053; 80061; 80076; 82043; 83036; 84443; 85025; 85027

== ENCOUNTER → 2022-01-21 09:45 | Outpatient (BNVA) | payer OTHER, SELFPAY | PROVIDERS: PCP Physician Assistant; Referring Provider Physician Assistant; Visit Provider Surgery | DX: Z13.89 Encounter for screening for other disorder (principal) ==

== ENCOUNTER 2022-12-29 16:47 | Emergency (ER) | payer OTHER, SELFPAY ==
--- NOTE | ~2022-12-29 | CT_ITS ---
EXAMINATION: CT FACIAL BONES WITH CONTRAST CLINICAL INFORMATION: Left upper tooth pain, rule out abscess COMPARISON: None available. TECHNIQUE: Multidetector volumetric imaging was performed of the face after the administration of 85 mL of Omnipaque 350. Sagittal and coronal reformats were obtained on the technologist's workstation. This CT examination was performed using dose optimization techniques as appropriate, variously including the following: *Automated exposure control *Adjustment of mA and/or kV according to patient size (this includes techniques or standardized protocols for targeted exams where dose is matched to indication/reason for exam; i.e. extremities or head) *Use of iterative reconstruction technique DLP: 311 mGy-cm FINDINGS: Limited views of the brain are grossly unremarkable. Orbits and globes are unremarkable. No retrobulbar fat stranding. There is subcutaneous edema and soft tissue swelling in the premalar and premandibular soft tissues of the face compatible with cellulitis. Prominent odontogenic enamel erosion of the maxillary left 2nd molar with associated periapical lucency. There is erosion of the outer table of the alveolar process of the maxilla adjacent to the posterior buccal root of the maxillary left 2nd molar with adjacent tiny soft tissue fluid collection, measuring 0.8 x 0.2 x 1.2 cm. There is also thinning/dehiscence of the osseous covering of this nerve root with moderate left maxillary sinus mucosal disease suggestive of odontogenic sinusitis. Prominent left cervical nodes may be reactive in the setting of acute infection. No acute facial fracture. CT/CT facial bones w IV con IMPRESSION: Prominent odontogenic enamel erosion of the maxillary left 2nd molar with associated periapical lucency. There is erosion of the outer table of the alveolar process of the maxilla adjacent to the posterior buccal root of the maxillary left 2nd molar with adjacent tiny soft tissue fluid collection, measuring 1.2 cm. There is also thinning/dehiscence of the osseous covering of this nerve root with moderate left maxillary sinus mucosal disease suggestive of odontogenic sinusitis. There is associated subcutaneous edema and swelling in the left premalar and premaxillary soft tissue suggestive of cellulitis. Prominent left cervical nodes may be reactive in the setting of acute infection.
[2022-12-29 16:50] VITALS: BP 139/94; PULSE 83; RESP 18; TEMP 36.7; O2SAT 99; BMI 28.5
--- NOTE | 2022-12-29 16:51 | ED.DENTAL ---
HPI - Dental/Oral General Chief complaint: Dental/Oral <SCOTT Reynolds - Last Filed: 12/29/22 16:54> Stated complaint: tooth pain, left side of face swollen <SCOTT Reynolds - Last Filed: 12/29/22 16:54> Time Seen by Provider: 12/29/22 18:26 <SCOTT Reynolds - Last Filed: 12/29/22 16:54> Source: patient <Soniya Nickerson NP - Last Filed: 12/29/22 23:40> Mode of arrival: ambulatory <Soniya Nickerson NP - Last Filed: 12/29/22 23:40> Limitations: no limitations <Soniya Nickerson NP - Last Filed: 12/29/22 23:40> History of Present Illness HPI Narrative: 47-year-old male presents with 1 day of left-sided tooth pain with facial swelling. <Soniya Nickerson NP - Last Filed: 12/29/22 23:40> MD Complaint: tooth pain <Soniya Nickerson NP - Last Filed: 12/29/22 23:40> Teeth map: 1. Dental caries <SCOTT Reynolds - Last Filed: 12/29/22 16:54> 1. Dental caries <Soniya Nickerson NP - Last Filed: 12/29/22 23:40> Onset (ago): day(s) (1) <Soniya Nickerson NP - Last Filed: 12/29/22 23:40> Duration: worsening <Soniya Nickerson NP - Last Filed: 12/29/22 23:40> Severity: severe <Soniya Nickerson NP - Last Filed: 12/29/22 23:40> Severity scale (1-10): 10 <Soniya Nickerson NP - Last Filed: 12/29/22 23:40> Relieving factors: nothing <Soniya Nickerson NP - Last Filed: 12/29/22 23:40> Exacerbating factors: chewing, cold and heat <Soniya Nickerson NP - Last Filed: 12/29/22 23:40> Context: history of dental caries and poor dental care <Soniya Nickerson NP - Last Filed: 12/29/22 23:40> Associated symptoms: gum swelling <Soniya Nickerson NP - Last Filed: 12/29/22 23:40> Treatment prior to arrival: none <Soniya Nickerson NP - Last Filed: 12/29/22 23:40> Related Data Home medications: Previous Rx's Medication Instructions Recorded triamcinolone acetonide 0.1 % 1 appl topical DAILY 30 days #30 03/14/22 topical cream grams tramadol 50 mg tablet 50 mg PO DAILY 10 days #10 tabs 12/05/22 amoxicillin 875 mg-potassium 1 tab PO Q12H 10 days #20 tabs 12/29/22 clavulanate 125 mg tablet <SCOTT eRynolds - Last Filed: 12/29/22 16:54> Allergies/adverse reactions: Allergies Allergy/AdvReac Type Severity Reaction Status Date / Time No Known Allergies Allergy Verified 12/05/22 09:39 <SCOTT Reynolds - Last Filed: 12/29/22 16:54> Review of Systems Review of Systems: Constitutional: No Fever, No Chills ENT/Mouth: No swallowing difficulty, no change in voice, positive dental pain, positive jaw pain, positive facial swelling Eyes: No Eye Pain, No Swelling Cardiovascular: No Chest Pain, No SOB Respiratory: No Cough, No Sputum, No Wheezing, No Dyspnea Gastrointestinal: No Nausea, No Vomiting, No Diarrhea Genitourinary: No Dysuria Musculoskeletal: No Myalgias Skin: No rash Neuro: No Weakness, No Numbness, No Headache <Soniya Nickerson NP - Last Filed: 12/29/22 23:40> Yes all other systems are reviewed and are negative <Soniya Nickerson NP - Last Filed: 12/29/22 23:40> PMFSH Past Medical History Attestation statement: The following information was validated with the patient. <Soniya Nickerson NP - Last Filed: 12/29/22 23:40> Source: old records reviewed <Soniya Nickerson NP - Last Filed: 12/29/22 23:40> Medical History: Medical History Elevated liver enzymes Gallstones HLD (hyperlipidemia) Vitamin D deficiency <SCOTT Reynolds - Last Filed: 12/29/22 16:54> Surgical History: Surgical History History of carpal tunnel release History of sleeve gastrectomy S/P cholecystectomy <SCOTT Reynolds - Last Filed: 12/29/22 16:54> Family History Family History: Family History Father Mental problem Substance abuse Mother Diabetes Cardiac arrest <SCOTT Reynolds - Last Filed: 12/29/22 16:54> Social History Social History: Social History Household Members: Significant Other and Family Household Members Other:: 3 Housing: Apartment Do you presently have visiting nurse or other home services: No Alcohol intake: current Alcohol intake frequency: a few times a week Patient Tobacco Use Status: Never used Tobacco e-Cigarette/Vaping Use: Never Used Second Hand Smoke Exposure: No Substance Use Type: Marijuana Advance Directives: No Advance Directives Information Provided: No service: No Current occupational status: employed 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 Current occupational exposures/hazards: No Cognitive needs: No Hearing needs: No Vision needs: Yes <SCOTT Reynolds - Last Filed: 12/29/22 16:54> Physical Exam Vital Signs: Vital Signs: Last Vital Signs Temp 98.0 F 12/29/22 16:50 Pulse 83 12/29/22 16:50 Resp 18 12/29/22 16:50 BP 139/94 H 12/29/22 16:50 Pulse Ox 99 12/29/22 16:50 O2 Del Method Room Air 12/29/22 16:50 BMI result Body Mass Index 28.5 <SCOTT Reynolds - Last Filed: 12/29/22 16:54> Vital Signs: Last Vital Signs Temp 98.0 F 12/29/22 16:50 Pulse 83 12/29/22 16:50 Resp 18 12/29/22 16:50 BP 139/94 H 12/29/22 16:50 Pulse Ox 99 12/29/22 16:50 O2 Del Method Room Air 12/29/22 16:50 BMI result Body Mass Index 28.5 <Soniya Nickerson NP - Last Filed: 12/29/22 23:40> Appearance: Alert. Oriented X3. No acute distress. Eyes: Pupils equal, round and reactive to light. ENT: Pharynx normal. Facial tenderness along the mandible, tooth number 15 and 16 multiple dental caries Neck: Normal inspection. Neck supple. CVS: Normal heart rate and rhythm. Pulses normal. Respiratory: No respiratory distress. Breath sounds normal. Skin: Skin warm and dry. Normal skin color. Normal skin turgor. Extremities: No lower extremity edema. Gait balance and coordinated. Neuro: No motor deficit. No sensory deficit. Cranial nerves 2-12 intact. <Soniya Nickerson NP - Last Filed: 12/29/22 23:40> Course Course Course Narrative: This is an RME: Additional HPI, ROS, PE not included below will be deferred to primary provider. 47-year-old male presents with dental pain x2 days, patient tells me he broke a tooth to the upper left side, this post have it looked at however has not yet gone, severe tooth pain for the past 2 days and woke up today with significant facial swelling to the left side of face. Denies fevers, chills. Denies changes in voice, trouble controlling secretions. Physical exam with trismus, at tenderness to palpation to left side of face throughout. Concerns for abscess. Physical exam patient can be seen in minor care. <SCOTT Reynolds - Last Filed: 12/29/22 16:54> This is an RME: Additional HPI, ROS, PE not included below will be deferred to primary provider. 47-year-old male presents with dental pain x2 days, patient tells me he broke a tooth to the upper left side, this post have it looked at however has not yet gone, severe tooth pain for the past 2 days and woke up today with significant facial swelling to the left side of face. Denies fevers, chills. Denies changes in voice, trouble controlling secretions. Physical exam with trismus, at tenderness to palpation to left side of face throughout. Concerns for abscess. Physical exam patient can be seen in minor care. 18:39 47-year-old male presents with broken tooth and facial swelling to the left side. CT facial bones is pending. I do not appreciate palpable abscess, will treat with Toradol, Augmentin, update Tdap vaccine today. CT facial bones pending. Labs indicate bilirubin of 2.1, patient has had a chronically elevated bilirubin for multiple years. This lab value is within his baseline. CT scan indicates periapical abscess 1.2 cm. I am unable to palpate or find this abscess, Dr. Hood also assesses patient and was unable to find the abscess. Plan of care is to have patient follow-up with the dentist emergently, within the next 24 hours, I did discuss the importance of this patient to present to his dentist for emergent evaluation. Will give Augmentin 875 mg, patient has had history of gastric bypass, will not be able to give Motrin. Will give Tylenol. Do not feel comfortable prescribing narcotics for this patient. Patient will have to follow up with oral surgeon or dentist. Patient is able to manage secretions, open and close his mouth, and states that the Toradol IM injection did help alleviate his pain. Patient verbalized understanding of and agreed to plan of care discharge home. Verbalized understanding of signs and symptoms indicating need for emergent intervention. <Soniya Nickerson NP - Last Filed: 12/29/22 23:40> Medications Administered Discontinued Medications Generic Name Dose Route Start Last Admin Trade Name Freq PRN Reason Stop Dose Admin Amoxicillin/Clavulanate Potassium 875 mg 12/29/22 18:32 12/29/22 18:59 Amoxicillin/Potassium Clav 875 Mg Tablet PO 12/29/22 18:33 875 mg ONCE ONE Administration Diphtheria/Tetanus/Acell Pertussis 0.5 ml 12/29/22 18:32 12/29/22 18:59 Diphth,Pertus(Acell),Tet Adult 0.5 Ml Syringe IM 12/29/22 18:33 0.5 ml .ONCE ONE Administration Iohexol 100 ml 12/29/22 19:35 12/29/22 19:35 Iohexol 350 Mg/Ml 100 Ml Infus..Btl IV 12/29/22 19:36 85 ml ONCE ONE Administration Ketorolac Tromethamine 60 mg 12/29/22 18:32 12/29/22 18:59 Ketorolac Tromethamine 60 Mg/2 Ml Vial IM 12/29/22 18:33 60 mg ONCE ONE Administration <SCOTT Reynolds - Last Filed: 12/29/22 16:54> Medications Administered Discontinued Medications Generic Name Dose Route Start Last Admin Trade Name Victorino PRN Reason Stop Dose Admin Amoxicillin/Clavulanate Potassium 875 mg 12/29/22 18:32 12/29/22 18:59 Amoxicillin/Potassium Clav 875 Mg Tablet PO 12/29/22 18:33 875 mg ONCE ONE Administration Diphtheria/Tetanus/Acell Pertussis 0.5 ml 12/29/22 18:32 12/29/22 18:59 Diphth,Pertus(Acell),Tet Adult 0.5 Ml Syringe IM 12/29/22 18:33 0.5 ml .ONCE ONE Administration Iohexol 100 ml 12/29/22 19:35 12/29/22 19:35 Iohexol 350 Mg/Ml 100 Ml Infus..Btl IV 12/29/22 19:36 85 ml ONCE ONE Administration Ketorolac Tromethamine 60 mg 12/29/22 18:32 12/29/22 18:59 Ketorolac Tromethamine 60 Mg/2 Ml Vial IM 12/29/22 18:33 60 mg ONCE ONE Administration <Soniya Nickerson NP - Last Filed: 12/29/22 23:40> Medical Decision Making Differential Diagnosis Differential Diagnoses: The differential diagnosis associated with the presentation includes <Soniya Nickerson NP - Last Filed: 12/29/22 23:40> Dental abscess, dental caries, gingivitis <Soniya Nickerson NP - Last Filed: 12/29/22 23:40> Lab Data MDM Lab Attestation statement: I reviewed the patient's lab results. <Soniya Nickerson NP - Last Filed: 12/29/22 23:40> Result Diagrams: 12/29/22 17:21 12/29/22 17:21 <SCOTT Reynolds - Last Filed: 12/29/22 16:54> Labs: Lab Results 12/29/22 12/29/22 Range/Units 17:21 17:21 WBC 10.6 (4.8-10.8) X10*3/uL RBC 5.13 (4.60-5.80) X10*6/uL Hgb 14.8 (14.0-18.0) g/dl Hct 44.9 (42.0-52.0) % MCV 87.5 (80.0-98.0) fL MCH 28.8 (27.0-33.0) pg MCHC 33.0 (31.0-36.0) g/dl RDW 11.9 (11.0-16.0) % Plt Count 269 (160-400) X10*3/uL MPV 10.0 (9.4-12.4) fL Immature Gran % (Auto) 0.3 (0.0-0.4) % Neut % (Auto) 59.6 (45-73) % Lymph % (Auto) 28.1 (20-40) % Gregory % (Auto) 8.7 (2-11) % Eos % (Auto) 2.5 (0-4) % Baso % (Auto) 0.8 (0-2) % Lymph # (Auto) 3.0 (1.2-4.9) X10*3/uL Gregory # (Auto) 0.9 (0.1-1.2) X10*3/uL Eos # (Auto) 0.3 (0.0-0.4) X10*3/uL Baso # (Auto) 0.1 (0.0-0.2) X10*3/uL Abs Immat Gran (auto) 0.03 (0.00-0.03) X10*3/uL Absolute Neuts (auto) 6.3 (2.0-8.3) x10*3/uL Absolute Nucleated RBC 0.000 (0.0-0.012) X10*3/uL Nucleated RBC % (auto) 0.0 (0.0-0.2) /100WBC Sodium 138 (135-145) mmol/L Potassium 3.7 (3.3-5.1) mmol/L Chloride 103 (96-108) mmol/L Carbon Dioxide 24 (22-29) mmol/L Anion Gap 15 (12-20) BUN 14 (9-16) mg/dL Creatinine 1.02 (0.5-1.4) mg/dL Estim Creat Clear Calc 104.9 Estimated GFR > 60 Random Glucose 105 (60-115) mg/dL Calcium 8.8 (8.4-10.2) mg/dL Total Bilirubin 2.1 H (0.0-1.0) mg/dL AST 17 (5-37) U/L ALT 14 (0-40) U/L Alkaline Phosphatase 59 (39-117) U/L Total Protein 7.1 (6.5-8.0) g/dL Albumin 4.0 (3.5-5.0) g/dL <SCOTT Reynolds - Last Filed: 12/29/22 16:54> Lab Results 12/29/22 12/29/22 Range/Units 17:21 17:21 WBC 10.6 (4.8-10.8) X10*3/uL RBC 5.13 (4.60-5.80) X10*6/uL Hgb 14.8 (14.0-18.0) g/dl Hct 44.9 (42.0-52.0) % MCV 87.5 (80.0-98.0) fL MCH 28.8 (27.0-33.0) pg MCHC 33.0 (31.0-36.0) g/dl RDW 11.9 (11.0-16.0) % Plt Count 269 (160-400) X10*3/uL MPV 10.0 (9.4-12.4) fL Immature Gran % (Auto) 0.3 (0.0-0.4) % Neut % (Auto) 59.6 (45-73) % Lymph % (Auto) 28.1 (20-40) % Gregory % (Auto) 8.7 (2-11) % Eos % (Auto) 2.5 (0-4) % Baso % (Auto) 0.8 (0-2) % Lymph # (Auto) 3.0 (1.2-4.9) X10*3/uL Gregory # (Auto) 0.9 (0.1-1.2) X10*3/uL Eos # (Auto) 0.3 (0.0-0.4) X10*3/uL Baso # (Auto) 0.1 (0.0-0.2) X10*3/uL Abs Immat Gran (auto) 0.03 (0.00-0.03) X10*3/uL Absolute Neuts (auto) 6.3 (2.0-8.3) x10*3/uL Absolute Nucleated RBC 0.000 (0.0-0.012) X10*3/uL Nucleated RBC % (auto) 0.0 (0.0-0.2) /100WBC Sodium 138 (135-145) mmol/L Potassium 3.7 (3.3-5.1) mmol/L Chloride 103 (96-108) mmol/L Carbon Dioxide 24 (22-29) mmol/L Anion Gap 15 (12-20) BUN 14 (9-16) mg/dL Creatinine 1.02 (0.5-1.4) mg/dL Estim Creat Clear Calc 104.9 Estimated GFR > 60 Random Glucose 105 (60-115) mg/dL Calcium 8.8 (8.4-10.2) mg/dL Total Bilirubin 2.1 H (0.0-1.0) mg/dL AST 17 (5-37) U/L ALT 14 (0-40) U/L Alkaline Phosphatase 59 (39-117) U/L Total Protein 7.1 (6.5-8.0) g/dL Albumin 4.0 (3.5-5.0) g/dL <Soniya Nickerson NP - Last Filed: 12/29/22 23:40> Independent Interpretation I performed an independent interpretation of an: CT Scan <Soniya Nickerson NP - Last Filed: 12/29/22 23:40> Radiology Impression Discussion of test interpretation with radiology: I have reviewed the radiologist's reading. <Soniya Nickerson NP - Last Filed: 12/29/22 23:40> Radiologist Impression: FINDINGS: Limited views of the brain are grossly unremarkable. Orbits and globes are unremarkable. No retrobulbar fat stranding. There is subcutaneous edema and soft tissue swelling in the premalar and premandibular soft tissues of the face compatible with cellulitis. Prominent odontogenic enamel erosion of the maxillary left 2nd molar with associated periapical lucency. There is erosion of the outer table of the alveolar process of the maxilla adjacent to the posterior buccal root of the maxillary left 2nd molar with adjacent tiny soft tissue fluid collection, measuring 0.8 x 0.2 x 1.2 cm. There is also thinning/dehiscence of the osseous covering of this nerve root with moderate left maxillary sinus mucosal disease suggestive of odontogenic sinusitis. Prominent left cervical nodes may be reactive in the setting of acute infection. No acute facial fracture. CT/CT facial bones w IV con IMPRESSION: ? Prominent odontogenic enamel erosion of the maxillary left 2nd molar with associated periapical lucency. There is erosion of the outer table of the alveolar process of the maxilla adjacent to the posterior buccal root of the maxillary left 2nd molar with adjacent tiny soft tissue fluid collection, measuring 1.2 cm. There is also thinning/dehiscence of the osseous covering of this nerve root with moderate left maxillary sinus mucosal disease suggestive of odontogenic sinusitis. There is associated subcutaneous edema and swelling in the left premalar and premaxillary soft tissue suggestive of cellulitis. ? Prominent left cervical nodes may be reactive in the setting of acute infection. <Soniya Nickerson NP - Last Filed: 12/29/22 23:40> External Record Review External record reviewed: Outpatient record and Prior outpatient labs <Soniya Nickerson NP - Last Filed: 12/29/22 23:40> Prescription Management I considered prescription management with: Pain Medication and Antibiotic <ARGENIS He Last Filed: 12/29/22 23:40> Chronic Conditions Patient?s care impacted by: Diabetes and Hypertension <ARGENIS He Last Filed: 12/29/22 23:40> Discharge Plan Discharge Clinical Impression: Dental caries, Toothache, Dental abscess <SCOTT Reynolds Last Filed: 12/29/22 16:54> Patient Disposition: Home, Self-Care <SCOTT Reynolds Last Filed: 12/29/22 16:54> Instructions: Toothache (ED), Dental Abscess (ED) <SCOTT Reynolds Last Filed: 12/29/22 16:54> Additional Instructions: You were evaluated for dental pain. Take Augmentin 875 mg every 12 hours for the next 10 days. Complete the entire course of this medication. You do have a 1.2 cm area of fluid collection consistent with abscess next to the posterior buccal root of the maxillary left 2nd molar. We are unable to drain this fluid pocket. It is extraordinarily important that you follow-up with a dentist emergently. Take Tylenol 650 mg every 6 hours as needed for pain management. Thank you for choosing this emergency department for evaluation. Please follow-up with primary care physician as needed. Return to the emergency department for any new, concerning, or worsening symptoms. <SCOTT Reynolds - Last Filed: 12/29/22 16:54> Prescriptions: New amoxicillin-pot clavulanate 875-125 mg tablet 1 tab PO Q12H 10 Days Qty: 20 0RF No Action tramadol 50 mg tablet 50 mg PO DAILY 10 Days Qty: 10 0RF triamcinolone acetonide 0.1 % cream 1 appl topical DAILY 30 Days Qty: 30 1RF <SCOTT Reynolds - Last Filed: 12/29/22 16:54> Stand Alone Forms: Dental Emergency Numbers, Work/School Release <SCOTT Reynolds - Last Filed: 12/29/22 16:54> Discharge Date/Time: 12/29/22 22:29 <SCOTT Reynolds - Last Filed: 12/29/22 16:54>
[2022-12-29 17:29] LABS: MANUAL DIFF FLAG NO
[2022-12-29 17:30] LABS: Basophils Absolute Auto 0.1 X10*3/uL (0.0-0.2); Basophils Percent Auto 0.8 % (0-2); Eosinophils Absolute Auto 0.3 X10*3/uL (0.0-0.4); Eosinophils Percent Auto 2.5 % (0-4); Hematocrit 44.9 % (42.0-52.0); Hemoglobin 14.8 g/dl (14.0-18.0); Imm Gran Abs Auto 0.03 X10*3/uL (0.00-0.03); Imm Gran Pct Auto 0.3 % (0.0-0.4); Lymphocytes Percent Auto 28.1 % (20-40); Mean Corpuscular Hemoglobin 28.8 pg (27.0-33.0); Mean Corpuscular Volume 87.5 fL (80.0-98.0); Monocytes Absolute Auto 0.9 X10*3/uL (0.1-1.2); Monocytes Percent Auto 8.7 % (2-11); Neutrophils Absolute Auto 6.3 x10*3/uL (2.0-8.3); Neutrophils Percent Auto 59.6 % (45-73); Platelet Count 269 X10*3/uL (160-400); Red Blood Count 5.13 X10*6/uL (4.60-5.80); Red Cell Distribution Width 11.9 % (11.0-16.0); White Blood Count 10.6 X10*3/uL (4.8-10.8)
[2022-12-29 17:44] LABS: Alanine Aminotransferase 14 U/L (0-40); Alkaline Phosphatase 59 U/L (39-117); Anion Gap 15 (12-20); Aspartate Amino Transferase 17 U/L (5-37); Bilirubin Total 2.1 mg/dL (0.0-1.0); Blood Urea Nitrogen 14 mg/dL (9-16); Calcium 8.8 mg/dL (8.4-10.2); Carbon Dioxide 24 mmol/L (22-29); Chloride 103 mmol/L (96-108); Creatinine Clr Calc Pharmacy 104.9; Estimated Glomerular Filt Rate > 60; Glucose Random 105 mg/dL (60-115); Potassium 3.7 mmol/L (3.3-5.1); Sodium 138 mmol/L (135-145); Total Protein 7.1 g/dL (6.5-8.0)
[2022-12-29] MEDS: Amoxicillin/Potassium Clav 875 MG TABLET PO (18:59)
[2022-12-29] MEDS: Diphth,Pertus(ACell),Tet Adult 0.5 ML SYRINGE IM (18:59)
[2022-12-29] MEDS: Ketorolac Tromethamine 60 MG/2 ML VIAL IM (18:59)
[2022-12-29] MEDS: iohexoL 350 MG/ML 100 ML INFUS..BTL IV (19:35)
== END 2022-12-29 22:29 | disposition home or self-care (01) ==
PROVIDERS: Physician Assistant; Emergency Provider Emergency Medicine Emergency Medical Services; PCP Physician Assistant
DX: K02.9 Dental caries, unspecified (principal); K04.7 Periapical abscess without sinus; R51.9 Headache, unspecified; Z79.899 Other long term (current) drug therapy; Z23 Encounter for immunization
CPT/HCPCS: 36415; 70487; 80053; 85025; 90471; 90715; 96372; 99283; 99284; J1885; Q9967

== ENCOUNTER 2023-05-06 08:46 | Outpatient (AMB) | payer OTHER, SELFPAY ==
--- NOTE | 2023-05-06 08:53 | A.OFFPC_ITS ---
Vital Signs 05/06/23 08:55 Height 6 ft Weight 222 lb 2 oz BMI 30.1 BP 124/64 Blood Pressure Location Lt brachial Position Sitting Pulse 64 Pulse Source Pulse Oximeter Pulse Oximetry (%) 98 Intake Visit Reasons: Annual Exam Intake Note: pt is here for annual exam, pt has concerns about heel pain on R side. patient states colonoscopy was scheduled at [facility] an they canceled twice [employer] [employer] [facility] Required: No Accompanied by: Self / Same As Patient Allergies No Known Allergies Allergy (Verified 05/06/23 09:15) Medication List - Last Reconciled 05/06/23 by Kings Garay PA-C No Known Home Meds Tobacco use date assessed: 12/05/22 Dental Screening Dental Screen Date: 05/06/23 Did you have a dental visit in the last 12 months?: Yes Did you have a dental problem in the last 6 months where you did not have access to dental care?: No Was dental information given to patient?: Patient has dentist HPI Annual Exam HPI Details Patient is a 48-year-old male here today for annual physical. Patient has a past medical history significant for status post bariatric surgery, history of hypertension, type 2 diabetes and hyperlipidemia. .. Status post bariatric surgery: Had been done in [place], now diabetes, hypertension and hyperlipidemia have resolved in her lifestyle controlled. Colon cancer screening: Was scheduled at [facility] though has been canceled. Vaccines: Up-to-date with COVID vaccine, tetanus vaccine, considering Shingrex Laboratory Tests 12/29/22 12/29/22 17:21 17:21 RBC 5.13 Hgb 14.8 Random Glucose 105 PFSH Medical History (Updated 05/06/23 @ 09:36 by Kings Garay PA-C) Elevated liver enzymes Gallstones HLD (hyperlipidemia) Vitamin D deficiency Surgical History (Updated 05/06/23 @ 09:36 by Kings Garay PA-C) History of carpal tunnel release History of sleeve gastrectomy S/P cholecystectomy S/P laparoscopic cholecystectomy Family History Father Mental problem Substance abuse Mother Diabetes Cardiac arrest Social History (Updated 05/06/23 @ 09:21 by Kings Garay PA-C) Household Members: Significant Other and Family Household Members Other:: 3 Housing: Apartment Do you presently have visiting nurse or other home services: No Alcohol intake: current Alcohol intake frequency: a few times a week Patient Tobacco Use Status: Never used Tobacco e-Cigarette/Vaping Use: Never Used Second Hand Smoke Exposure: No Substance Use Type: Marijuana service: No Current occupational status: employed 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 1. Little interest or pleasure in doing things: not at all 2. Feeling down, depressed, or hopeless: not at all 3. Trouble falling or staying asleep, or sleeping too much: not at all 4. Feeling tired or having little energy: not at all 5. Poor appetite or overeating: not at all 6. Feeling bad about yourself - or that you are a failure or have let yourself or your family down: not at all 7. Trouble concentrating on things, such as reading the newspaper or watching television: not at all 8. Moving or speaking so slowly that other people could have noticed. Or the opposite - being so fidgety or restless that you have been moving around a lot more than usual: not at all 9. Thoughts that you would be better off or of hurting yourself in some way: not at all Total score: 0 Depression Screening Interpretation: Negative [id number] - PHQ-9 Billing: Yes Source: Developed by Drs. Tres Sims, Tita Calderon, Rj Salter and colleagues, with an educational klaus from [employer]. Thrive Questionnaire Date Thrive assessed: 12/05/22 FELIPE-7 AMB Questionnaire FELIPE-7 Date FELIPE - 7 assessed: 12/05/22 Source: Developed by Drs. Tres Sims, Tita Calderon, Rj Salter and colleagues, with an educational klaus from [employer]. Review of Systems Const Denies body aches, Denies chills, Denies excessive sweating, Denies fatigue, Denies fever(s) and Denies headache(s) Eyes Denies blurry vision ENT Denies dysphagia, Denies vertigo, Denies dizziness, Denies headache(s), Denies hearing loss and Denies tinnitus Card Denies chest pain, Denies chest pain with activity, Denies syncope, Denies irregular heart rhythm and Denies dyspnea Resp Denies chest congestion, Denies cough, Denies hemoptysis, Denies dyspnea and Denies wheezing GI Denies abdominal pain, Denies melena, Denies hematochezia, Denies coffee ground emesis, Denies dysphagia, Denies diarrhea, Denies nausea and Denies vomiting Denies difficulty urinating, Denies dysuria, Denies urinary frequency, Denies urinary hesitancy and Denies urinary urgency Musc Denies arthralgias, Denies limited range of motion, Denies muscle cramps and Denies muscle weakness Skin/Breast Denies rash and Denies skin ulcer Neuro Denies Abnormal speech present, Denies confusion, Denies vertigo, Denies dizziness, Denies syncope, Denies headache(s), Denies memory loss and Denies seizure-like activity Psych Denies anxiety, Denies confusion, Denies depression, Denies memory loss, Denies panic attacks and Denies paranoia Endo Denies excessive sweating, Denies fatigue, Denies flushing, Denies polydipsia and Denies polyuria Aller/Immun Denies wheezing Physical exam (Primary Care) Vital Signs: Last Vital Signs Pulse 64 05/06/23 08:55 BP 124/64 05/06/23 08:55 Pulse Ox 98 05/06/23 08:55 BMI result Body Mass Index 30.1 BMI Assessment/Plan discussion: High Tobacco/Smoking Status: Tobacco use Status Tobacco use date assessed 12/05/22 05/06/23 08:55 Patient Tobacco Use Status Never used Tobacco 05/06/23 08:55 e-Cigarette/Vaping Use Never Used 05/06/23 08:55 PHQ-9: PHQ-9 Score PHQ-9: Total score 0 05/06/23 09:00 Depression Screening Interpretation: Negative Thrive Assessment: Date of Thrive Assessment Date Thrive assessed 12/05/22 05/06/23 08:55 Const General: cooperative, comfortable, no acute distress, alert and awake; No confusion Orientation/consciousness: oriented to person, oriented to place, patient oriented x3 and No confusion HENMT Head: Yes normocephalic Ears: external ears normal and TM's normal bilaterally Face and sinus: No sinus tenderness Mouth: Normal oral and palatal mucosa present and tongue normal Teeth and gingiva: dentition normal and gingiva normal Throat: Yes posterior oropharynx normal, Yes tonsils normal and Yes uvula midline Eyes Conjunctivae: conjunctivae normal Sclerae: sclerae normal Pupils: Equal, round and reactive pupils present EOM: EOMs intact bilaterally Direct Ophthalmoscopy: No no photophobia Neck Neck: Yes no lymphadenopathy, No tender and Yes no JVD Thyroid: Thyroid normal Carotids: no bruits Chest Chest palpation & inspection: no tenderness Resp Effort & Inspection: normal respiratory effort, no audible wheezes, not labored and no stridor Auscultation: no crackles, no rales, no rhonchi and no wheezes Cardio Jugular venous distension: no JVD Rate: regular rate, not bradycardic and not tachycardic Rhythm: regular rhythm Bruits: no carotid bruits Peripheral pulses: Peripheral pulses 2+ throughout GI Inspection: Yes normal to inspection, No abdominal wall ecchymosis and No visible herniation Palpation (GI): Soft to palpation, nontender, no guarding, not rigid and No h epatosplenomegaly present Auscultation: normoactive bowel sounds General: Yes no CVA tenderness Back/Spine/Pelvis Back: no CVA tenderness and No back tenderness Cervical Spine: cervical ROM normal Thoracic/Lumbar Spine: thoracic and lumbar spine normal to inspection, straight leg raise negative bilaterally, No thoraco-lumbar ROM limited and No lumbar spinal tenderness Skin Lesions: no lesions Rashes: no rashes Wounds: no wounds Neuro General: oriented to person, oriented to place, patient oriented x3, CN's II-XI intact bilaterally and No confusion Cranial nerves: Yes Equal, round and reactive pupils present and Yes Normal accommodation reflex present Cognition (Neuro): normal cognition Speech: No Abnormal speech present Gait exam (Neuro): Normal gait present Motor exam (neuro): 5/5 motor strength present throughout Extrem Right upper extremity: full ROM; no cyanosis Left upper extremity: full ROM; no cyanosis Right lower extremity: no edema Left lower extremity: no edema Psych Appearance: grossly normal Mental Status: mental status grossly normal Affect: normal affect Attitude: cooperative Thought process: Normal thought process present Assessment and Plan Assessment & Plan (1) Annual physical exam: Code(s): Z00.00 - Encounter for general adult medical examination without abnormal findings (2) Pain of right heel: Code(s): M79.671 - Pain in right foot Plan: Reports 2 months history right heel pain. Has been limiting his physical activity. Would like evaluation and treatment. (3) Achilles tendinitis: Code(s): M76.60 - Achilles tendinitis, unspecified leg Qualifiers: Laterality: right Qualified Code(s): M76.61 - Achilles tendinitis, right leg Plan: Patient's signs symptoms are consistent with an Achilles tendinitis at the insertion spoiled at the heel. Would likely benefit from physical therapy. Will get x-ray to evaluate for any heel spurs. Advised on topical NSAID, Tylenol on use of cool compress. (4) Colon cancer screening: Code(s): Z12.11 - Encounter for screening for malignant neoplasm of colon Plan: Need for screening colonoscopy (5) Obese: Code(s): E66.9 - Obesity, unspecified Qualifiers: Obesity type: due to excess calories Obesity classification: adult class 2 (BMI 35 - 39.9) Serious obesity comorbidity presence: without serious comorbidity Body mass index: BMI 36.0-36.9 Qualified Code(s): E66.09 - Other obesity due to excess calories; Z68.36 - Body mass index [BMI] 36.0-36.9, adult Plan: Patient does understand his BMI is slightly above 30. Has not been able to be physically active due to his right heel pain. Will work on better eating habits and trying to be more physically active to reduce his weight. (6) T2DM (type 2 diabetes mellitus): Code(s): E11.9 - Type 2 diabetes mellitus without complications Qualifiers: Diabetes mellitus intermodal customer service insulin use: without intermodal customer service use Diabetes mellitus complication status: with hyperglycemia Qualified Code(s): E11.65 - Type 2 diabetes mellitus with hyperglycemia Plan: Has resolved since bariatric surgery. Continues on lifestyle management of his diabetes. (7) HTN (hypertension): Code(s): I10 - Essential (primary) hypertension Qualifiers: Hypertension type: unspecified Qualified Code(s): I10 - Essential (primary) hypertension Plan: Patient's blood pressure acceptable today in office. Has been controlled since bariatric surgery. Continues to be lifestyle controlled at this time. Goal blood pressure be below 140/90 (8) HLD (hyperlipidemia): Code(s): E78.5 - Hyperlipidemia, unspecified Qualifiers: Hyperlipidemia type: unspecified Qualified Code(s): E78.5 - Hyperlipidemia, unspecified Plan: Patient's lipid panel has been stable since bariatric surgery. No medication needed at this time. Will continue to follow total cholesterol and LDL to assure normal. (9) Lumbar disc herniation with radiculopathy: Code(s): M51.16 - Intervertebral disc disorders with radiculopathy, lumbar region Plan: Continues to have intermittent lower lumbar spine pain. Does use tramadol on a very limited p.r.n. basis for back pain. Orders: Orders Comprehensive [place]. Panel Fast Today E11.65 - Type 2 diabetes mellitus with hyperglycemia Lipid Panel Today E78.5 - Hyperlipidemia, unspecified Prostate Specific Antigen Scr Today E78.5 - Hyperlipidemia, unspecified, Z12.5 - Encounter for screening for malignant neoplasm of prostate Microalbumin, Random (w Creat) Today I10 - Essential (primary) hypertension Complete Blood Count no Diff Today E11.65 - Type 2 diabetes mellitus with hyperglycemia PT Evaluation and Treatment Today M51.9 - Unspecified thoracic, thoracolumbar and lumbosacral intervertebral disc disorder, M76.61 - Achilles tendinitis, right leg XR foot RT 2V Today M79.671 - Pain in right foot Referrals Podiatry Referral M79.671 - Pain in right foot Gastroenterology Referral Z12.11 - Encounter for screening for malignant neoplasm of colon Medications: New tramadol 50 mg PO BID 7 days PRN 14 tabs 1RF pain M51.16 - Intervertebral disc disorders with radiculopathy, lumbar region Coding Level of Care Code Est Pt Prev Care 40-64y(46461) Diagnoses Annual physical exam Z00.00 Pain of right heel M79.671 Achilles tendinitis M76.61 Laterality: right Colon cancer screening Z12.11 Obese E66.09; Z68.36 Obesity type: due to excess calories Obesity classification: adult class 2 (BMI 35 - 39.9) Serious obesity comorbidity presence: without serious comorbidity Body mass index: BMI 36.0-36.9 T2DM (type 2 diabetes mellitus) E11.65 Diabetes mellitus intermodal customer service insulin use: without intermodal customer service use Diabetes mellitus complication status: with hyperglycemia HTN (hypertension) I10 Hypertension type: unspecified HLD (hyperlipidemia) E78.5 Hyperlipidemia type: unspecified Lumbar disc herniation with radiculopathy M51.16
[2023-05-06 08:55] VITALS: BP 124/64; PULSE 64; O2SAT 98; BMI 30.1
== END 2023-05-06 09:40 | disposition home or self-care (01) ==
PROVIDERS: PCP Physician Assistant; Visit Provider Physician Assistant
DX: Z00.00 Encounter for general adult medical examination without abnormal findings (principal); Z68.36 Body mass index [BMI] 36.0-36.9, adult; E11.65 Type 2 diabetes mellitus with hyperglycemia; I10 Essential (primary) hypertension; M79.671 Pain in right foot; M76.61 Achilles tendinitis, right leg; Z12.11 Encounter for screening for malignant neoplasm of colon; E66.09 Other obesity due to excess calories; E78.5 Hyperlipidemia, unspecified; M51.16 Intervertebral disc disorders with radiculopathy, lumbar region
CPT/HCPCS: 99396

== ENCOUNTER 2023-05-06 09:48 | Outpatient (REF) | payer OTHER, SELFPAY ==
--- NOTE | ~2023-05-06 | XR_ITS ---
EXAMINATION: XR FOOT, RIGHT CLINICAL INFORMATION: Pain. COMPARISON: None available. TECHNIQUE: AP, lateral, and oblique views of the right foot. FINDINGS: Bony alignment and mineralization are normal. No fracture, dislocation or right ankle joint effusion is seen. Boehler's angle is normal. There are moderate posterior and plantar calcaneal spurs. There is no abnormal bone erosion. No focal soft tissue swelling, gas or foreign body is seen. XR/XR foot RT 2V IMPRESSION: 1. There is no fracture, dislocation or right ankle joint effusion. 2. There are moderate calcaneal spurs.
== END 2023-05-06 09:49 | disposition home or self-care (01) ==
LOC: HO.XRAY 09:48
PROVIDERS: PCP Physician Assistant; Visit Provider Physician Assistant
DX: M79.671 Pain in right foot (principal)
CPT/HCPCS: 73620

== ENCOUNTER 2023-11-11 09:33 | Outpatient (AMB) | payer OTHER, SELFPAY ==
[2023-11-11 09:50] VITALS: BP 112/74; PULSE 75; O2SAT 97; BMI 30.8
--- NOTE | 2023-11-11 09:50 | A.OFFPC_ITS ---
Vital Signs 3 11/11/23 09:50 Height 6 ft Weight 227 lb 2 oz BMI 30.8 BP 112/74 Blood Pressure Location Lt brachial Position Sitting Pulse 75 Pulse Source Pulse Oximeter Pulse Oximetry (%) 97 Oxygen Delivery Method Room Air Intake Visit Reasons: f/u weight check / HTN Intake Note: The patient is here for a weight check and follow-up on HTN. Today, the patient's concern is discomfort in the left foot persisting for about two months, along with the sensation of a hard lump. Audit Senior Associate Required: No Accompanied by: Self / Same As Patient Allergies No Known Allergies Allergy (Verified 11/11/23 10:14) Medication List - Last Reconciled 11/11/23 by Kings Garay PA-C tramadol 50 mg PO BID PRN 7 days Tobacco use date assessed: 11/11/23 Dental Screening Dental Screen Date: 11/11/23 Did you have a dental visit in the last 12 months?: Yes Did you have a dental problem in the last 6 months where you did not have access to dental care?: No Was dental information given to patient?: Patient has dentist HPI f/u weight check / HTN 2 HPI0 Details Patient is a 48-year-old male here today for follow-up visit. Patient has a past medical history significant for status post bariatric surgery, history of hypertension, type 2 diabetes and hyperlipidemia. Concern--> reports he has developed a callus on a toe in his left foot. He reports it is very painful at times and would like removal. He interested in seeing a ironworker machine operator. .. Status post bariatric surgery: Unfortunately gained a few lb since last office visit. He is still interested in getting an abdominal plasty due to his excess skin. Often getting tinea infections under his excess skin which bothers him a lot. Has not been able to be more active due to his foot and heel pain. Had been done in [place], now diabetes, hypertension and hyperlipidemia have resolved in her lifestyle controlled. .. Chronic medical conditions--> History of diabetes, hypertension and hyperlipidemia: Have all resolved since bariatric surgery. Now off of all diabetic, hypertensive, hyperlipidemia medication. Has been able to manage all these chronic conditions with lifestyle modifications. [facility] Medical History (Updated 11/11/23 @ 10:20 by Kings Garay PA-C) Gallstones Elevated liver enzymes Vitamin D deficiency HLD (hyperlipidemia) Surgical History S/P cholecystectomy S/P laparoscopic cholecystectomy History of sleeve gastrectomy History of carpal tunnel release Family History Father Mental problem Substance abuse Mother Diabetes Cardiac arrest Social History Household Members: Significant Other and Family Household Members Other:: 3 Housing: Apartment Do you presently have visiting nurse or other home services: No Alcohol intake: current Alcohol intake frequency: a few times a week Patient Tobacco Use Status: Never used Tobacco e-Cigarette/Vaping Use: Never Used Second Hand Smoke Exposure: No Substance Use Type: Marijuana service: No Current occupational status: employed 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 1. Little interest or pleasure in doing things: not at all 2. Feeling down, depressed, or hopeless: not at all 3. Trouble falling or staying asleep, or sleeping too much: not at all 4. Feeling tired or having little energy: not at all 5. Poor appetite or overeating: not at all 6. Feeling bad about yourself - or that you are a failure or have let yourself or your family down: not at all 7. Trouble concentrating on things, such as reading the newspaper or watching television: not at all 8. Moving or speaking so slowly that other people could have noticed. Or the opposite - being so fidgety or restless that you have been moving around a lot more than usual: not at all 9. Thoughts that you would be better off or of hurting yourself in some way: not at all Total score: 0 Depression Screening Interpretation: Negative Depression Screening Done: Yes 04387 - PHQ-9 Billing: Yes Source: Developed by Drs. Tres Sims, iTta Calderon, Rj Salter and colleagues, with an educational klaus from [employer]. Thrive Questionnaire Date Thrive assessed: 11/11/23 I am a: Patient What is your living situation today?: I have a steady place to live Within the past 12 months, did the food you bought not last and you didn't have the money to get more?: Never true Within the past 12 months, did you worry whether your food would run out before you got money to buy more?: Never true Do you have trouble paying for medicines?: No Do you have trouble getting transportation to medical appointments?: No Do you have trouble paying your heating and electricity bill?: No Do you have trouble taking care of your child, family member or friend?: No Do you have trouble with day-to-day activities such as bathing, preparing meals, shopping, managing finances, etc.?: No Are you currently unemployed and looking for a job?: No Are you interested in more education?: No Please select the resources that you would like help with: None Currently or been in a relationship where the following occur: no concerns reported THRIVE Score: 0 AUDIT C Alcohol Use Questionnaire (AUDIT-C) 1. How often do you have a drink containing alcohol?: 2-3 times a week 2. How many drinks containing alcohol do you have on a typical day when you are drinking?: 3 or 4 3. How often do you have six or more drinks on one occasion?: Never Total Score: 4 FELIPE-7 AMB Questionnaire FELIPE-7 Date FELIPE - 7 assessed: 11/11/23 Feeling nervous, anxious, or on edge: 0 = Not at all Not being able to stop or control worryin = Not at all Worrying too much about different things: 0 = Not at all Trouble relaxin = Not at all Being so restless that it is hard to sit still: 0 = Not at all Becoming easily annoyed or irritable: 0 = Not at all Feeling afraid as if something awful might happen: 0 = Not at all Total FELIPE-7 score (0-4 normal; 5-9 mild; 10-14 moderate; 15-21 severe): 0 Source: Developed by Drs. Tres Sims, Tita Calderon, Rj Salter and colleagues, with an educational klaus from [employer]. FELIPE-7 Assessment Billing FELIPE-7 Assessment Tool: FELIPE-7 Assessment 48326 Review of Systems Const Denies headache(s) Eyes Denies loss of vision ENT Denies vertigo, Denies dizziness, Denies headache(s) and Denies sore throat Card Denies chest pain, Denies leg edema and Denies lightheadedness Resp Denies cough, Denies hemoptysis and Denies wheezing GI Denies abdominal pain, Denies melena, Denies constipation, Denies diarrhea and Denies vomiting Denies dysuria, Denies urinary frequency and Denies urinary urgency Musc Denies arthralgias, Denies joint swelling, Denies numbness and Denies tingling Neuro Denies Abnormal speech present, Denies behavioral changes, Denies vertigo, Denies dizziness, Denies headache(s), Denies loss of vision, Denies memory loss, Denies numbness and Denies tingling Psych Denies anxiety, Denies behavioral changes, Denies depression, Denies memory loss and Denies panic attacks Robi/Lymph Denies easy bleeding and Denies easy bruising Aller/Immun Denies wheezing Physical exam (Primary Care) Vital Signs: Last Vital Signs Pulse 75 11/11/23 09:50 BP 112/74 11/11/23 09:50 Pulse Ox 97 11/11/23 09:50 Oxygen Delivery Method Room Air 11/11/23 09:50 BMI result Body Mass Index 30.8 Tobacco/Smoking Status: Tobacco use Status Tobacco use date assessed 11/11/23 11/11/23 10:00 Patient Tobacco Use Status Never used Tobacco 11/11/23 09:50 e-Cigarette/Vaping Use Never Used 11/11/23 09:50 PHQ-9: PHQ-9 Score PHQ-9: Total score 0 11/11/23 10:00 Depression Screening Interpretation: Negative Thrive Assessment: Date of Thrive Assessment Date Thrive assessed 11/11/23 11/11/23 09:57 Currently or been in a relationship where the following occur: no concerns reported Const General: healthy appearing, no acute distress, alert and awake Nutritional Appearance: well nourished Orientation/consciousness: oriented to person, oriented to place and oriented to time HENMT Ears: TM's normal bilaterally General nose exam: Normal nasal mucous membranes and turbinates present Eyes Conjunctivae: conjunctivae normal Sclerae: sclerae normal Pupils: Equal, round and reactive pupils present Neck Neck: Yes no lymphadenopathy and Yes no JVD Thyroid: Thyroid normal Carotids: no bruits Resp Effort & Inspection: normal respiratory effort and not tachypneic Auscultation: no crackles, no rales, no rhonchi and no wheezes Cardio Rate: regular rate Rhythm: regular rhythm Heart sounds: no murmurs and normal S1 and S2 GI Palpation (GI): Soft to palpation, nontender, no hepatomegaly and no splenomegaly Auscultation: normal bowel sounds Skin General skin exam: no rashes or lesions noted and dry skin Neuro General: oriented to person, oriented to place and oriented to time Cranial nerves: Yes Equal, round and reactive pupils present Speech: No Abnormal speech present Gait exam (Neuro): Normal gait present Motor exam (neuro): no tremor noted Extrem Right upper extremity: full ROM Left upper extremity: full ROM Right lower extremity: full ROM; no edema Left lower extremity: full ROM; no edema Ankle/foot/toe images: 2 1. PALPABLE CALLUS IN THE AREA OUTLINED Psych Mental Status: mental status grossly normal Speech and movement: Normal speech and movement present Affect: normal affect Attitude: cooperative Thought process: Normal thought process present Assessment and Plan Assessment & Plan (1) Foot callus: Code(s): L84 - Corns and callosities Plan: Has developed a foot callus over toe on his left foot. Has not used any shoe inserts to do should be weight. He would like to see a ironworker machine operator for removal of the callus as it is very bothersome to him. (2) Excess skin of abdomen: Code(s): L98.7 - Excessive and redundant skin and subcutaneous tissue Plan: Continues to have excess skin on his abdomen from his previous bariatric surgery. Still bothers him in often gets TD infections in his skin folds. Has followed up with Plastic surgeon and is awaiting approval for the abdominal plasty. (3) T2DM (type 2 diabetes mellitus): Code(s): E11.9 - Type 2 diabetes mellitus without complications Qualifiers: Diabetes mellitus adjunct faculty for medical terminology insulin use: without snf use Diabetes mellitus complication status: with hyperglycemia Qualified Code(s): E11.65 - Type 2 diabetes mellitus with hyperglycemia Plan: Has resolved since undergoing bariatric surgery. Will continue to check fasting blood sugar and A1c to ensure not in diabetic range. (4) HLD (hyperlipidemia): Code(s): E78.5 - Hyperlipidemia, unspecified Qualifiers: Hyperlipidemia type: unspecified Qualified Code(s): E78.5 - Hyperlipidemia, unspecified Plan: Has now been able to be off of statin therapy since his bariatric surgery. Continue to follow lipid panel to assure LDL below 130 (5) HTN (hypertension): Code(s): I10 - Essential (primary) hypertension Qualifiers: Hypertension type: unspecified Qualified Code(s): I10 - Essential (primary) hypertension Plan: Patient now off of all anti hyper pensive medication since bariatric surgery. Blood pressure today in office acceptable. Will continue to manage his blood pressure with lifestyle modifications. Goal blood pressure to be below 140/90 Orders: Referrals 2 Podiatry Referral L84 - Corns and callosities Medications: Refilled 2 tramadol 50 mg PO BID PRN 14 tabs 1RF pain 7 days M51.16 - Intervertebral disc disorders with radiculopathy, lumbar region Coding Level of Care Code Est Pt Level 4 (34516) Diagnoses Foot callus L84 Excess skin of abdomen L98.7 Type 2 diabetes mellitus with hyperglycemia, without long-term current use of insulin E11.65 Diabetes mellitus snf insulin use: without adjunct faculty for medical terminology use Diabetes mellitus complication status: with hyperglycemia Hyperlipidemia, unspecified hyperlipidemia type E78.5 Hyperlipidemia type: unspecified Hypertension, unspecified type I10 Hypertension type: unspecified Additional Codes FELIPE-7 Assessment Billing - FELIPE-7 Assessment Tool: FELIPE-7 Assessment [id number] ([id number])
== END 2023-11-11 10:29 | disposition home or self-care (01) ==
PROVIDERS: PCP Physician Assistant; Visit Provider Physician Assistant
DX: L84 Corns and callosities (principal); L98.7 Excessive and redundant skin and subcutaneous tissue; E11.65 Type 2 diabetes mellitus with hyperglycemia; E78.5 Hyperlipidemia, unspecified; I10 Essential (primary) hypertension
CPT/HCPCS: 99214

== ENCOUNTER 2024-06-17 13:41 | Outpatient (AMB) | payer OTHER, SELFPAY ==
[2024-06-17 14:05] VITALS: BP 132/84; PULSE 74; O2SAT 97; BMI 30.9
--- NOTE | 2024-06-17 14:05 | MHC.PC.OV ---
Vital Signs 06/17/24 14:05 Height 6 ft Weight 227 lb 8 oz BMI 30.9 BP 132/84 Blood Pressure Location Lt brachial Position Sitting Pulse 74 Pulse Source Pulse Oximeter Pulse Oximetry (%) 97 Oxygen Delivery Method Room Air Intake Visit Reasons: pain in right arm Pulper Tender Required: No Accompanied by: Self / Same As Patient Allergies No Known Allergies Allergy (Verified 06/17/24 14:06) Tobacco use date assessed: 11/11/23 Dental Screening Dental Screen Date: 11/11/23 HPI pain in right arm HPI Details Patient is a 49-year-old male here today for a problem visit. Reports over the last 3 months having right forearm, elbow pain and some decreased learning support services director strength in his right hand. He has had carpal tunnel and cubital tunnel surgery of his right forearm in the past that resolved his symptoms. He feels that his symptoms are not back. He can not recall any recent trauma to his right upper extremity. ' Excess abdominal skin:Patient is status post bariatric surgery in 2020 done outside of the night stays in [place]. Does have excess abdominal skin that causes him some emotional distress, worsening back pain due to his heaviness and often gets skin infection in the under aspect of his abdomen [facility] Medical History (Updated 06/21/24 @ 08:15 by Kings Garay PA-C) Bleeding hemorrhoids Gallstones Elevated liver enzymes Vitamin D deficiency HLD (hyperlipidemia) Surgical History S/P cholecystectomy S/P laparoscopic cholecystectomy History of sleeve gastrectomy History of carpal tunnel release Family History Father Mental problem Substance abuse Mother Diabetes Cardiac arrest Social History Household Members: Significant Other and Family Household Members Other:: 3 Housing: Apartment Do you presently have visiting nurse or other home services: No Alcohol intake: current Alcohol intake frequency: a few times a week Patient Tobacco Use Status: Never used Tobacco e-Cigarette/Vaping Use: Never Used Second Hand Smoke Exposure: No Substance Use Type: Marijuana service: No Current occupational status: employed 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 How many drinks containing alcohol do you have on a typical day when you are drinking?: 1 or 2 3. How often do you have six or more drinks on one occasion?: Weekly Total Score: 3 FELIPE-7 AMB Questionnaire FELIPE-7 Date FELIPE - 7 assessed: 11/11/23 Source: Developed by Drs. Tres Sims, Tita Calderon, Rj Salter and colleagues, with an educational klaus from [employer]. Review of Systems Const Denies headache(s) Eyes Denies loss of vision ENT Denies vertigo, Denies dizziness, Denies headache(s) and Denies sore throat Card Denies chest pain, Denies leg edema and Denies lightheadedness Resp Denies cough, Denies hemoptysis and Denies wheezing GI Denies abdominal pain, Denies melena, Denies constipation, Denies diarrhea and Denies vomiting Denies dysuria, Denies urinary frequency and Denies urinary urgency Musc Denies arthralgias, Denies joint swelling, Denies numbness and Denies tingling Neuro Denies Abnormal speech present, Denies behavioral changes, Denies vertigo, Denies dizziness, Denies headache(s), Denies loss of vision, Denies memory loss, Denies numbness and Denies tingling Psych Denies anxiety, Denies behavioral changes, Denies depression, Denies memory loss and Denies panic attacks Robi/Lymph Denies easy bleeding and Denies easy bruising Aller/Immun Denies wheezing Physical exam (Primary Care) Vital Signs: Last Vital Signs Pulse 74 06/17/24 14:05 BP 132/84 06/17/24 14:05 Pulse Ox 97 06/17/24 14:05 Oxygen Delivery Method Room Air 06/17/24 14:05 BMI result Body Mass Index 30.9 Tobacco/Smoking Status: Tobacco use Status Tobacco use date assessed 11/11/23 06/17/24 14:06 Patient Tobacco Use Status Never used Tobacco 06/17/24 14:06 e-Cigarette/Vaping Use Never Used 06/17/24 14:06 Thrive Assessment: Date of Thrive Assessment Date Thrive assessed 11/11/23 06/17/24 14:06 Const General: healthy appearing, no acute distress, alert and awake Nutritional Appearance: well nourished Orientation/consciousness: oriented to person, oriented to place and oriented to time HENMT Ears: TM's normal bilaterally General nose exam: Normal nasal mucous membranes and turbinates present Eyes Conjunctivae: conjunctivae normal Sclerae: sclerae normal Pupils: Equal, round and reactive pupils present Neck Neck: Yes no lymphadenopathy and Yes no JVD Thyroid: Thyroid normal Carotids: no bruits Resp Effort & Inspection: normal respiratory effort and not tachypneic Auscultation: no crackles, no rales, no rhonchi and no wheezes Cardio Rate: regular rate Rhythm: regular rhythm Heart sounds: no murmurs and normal S1 and S2 GI Palpation (GI): Soft to palpation, nontender, no hepatomegaly and no splenomegaly Auscultation: normal bowel sounds Abdomen image: 1. NOTED EXCESS ABDOMINAL SKIN Skin General skin exam: no rashes or lesions noted and dry skin Neuro General: oriented to person, oriented to place and oriented to time Cranial nerves: Yes Equal, round and reactive pupils present Speech: No Abnormal speech present Gait exam (Neuro): Normal gait present Motor exam (neuro): no tremor noted Extrem Right upper extremity: full ROM Left upper extremity: full ROM Right lower extremity: full ROM; no edema Left lower extremity: full ROM; no edema Psych Mental Status: mental status grossly normal Speech and movement: Normal speech and movement present Affect: normal affect Attitude: cooperative Thought process: Normal thought process present Assessment and Plan Assessment & Plan (1) Cubital tunnel syndrome on right: Code(s): G56.21 - Lesion of ulnar nerve, right upper limb Plan: Patient reports a 3 month history left forearm/elbow and wrist pain. Has had cubital tunnel and carpal tunnel release surgery many years ago though feels it has returned. Will send for repeat EMG testing to evaluate for neuropathy (2) S/P bariatric surgery: Code(s): Z98.84 - Bariatric surgery status Plan: Patient is status post bariatric surgery in 2020 done outside of the night stays in [place]. Does have excess abdominal skin that causes him some emotional distress, worsening back pain due to his heaviness and often gets skin infection in the under aspect of his abdomen. (3) Excess skin of abdomen: Code(s): L98.7 - Excessive and redundant skin and subcutaneous tissue (4) T2DM (type 2 diabetes mellitus): Code(s): E11.9 - Type 2 diabetes mellitus without complications Qualifiers: Diabetes mellitus intermediate frame tender insulin use: without intermediate frame tender use Diabetes mellitus complication status: with hyperglycemia Qualified Code(s): E11.65 - Type 2 diabetes mellitus with hyperglycemia Plan: PATIENT'S TYPE 2 DIABETES IS LIFESTYLE AND DIETARY CONTROLLED SINCE BARIATRIC SURGERY IN 2020. NOW OF ALL DIABETES AND CHOLESTEROL MEDICATION. GOAL A1C IS TO BE BELOW 6.5 Orders: Orders Microalbumin, Random (w Creat) 06/17/24 I10 - Essential (primary) hypertension Lipid Panel 06/17/24 E78.5 - Hyperlipidemia, unspecified NE electromyogram (EMG) 06/17/24 G56.21 - Lesion of ulnar nerve, right upper limb Vitamin D 25-OH Total 06/17/24 E55.9 - Vitamin D deficiency, unspecified Complete Blood Count no Diff 06/17/24 E11.65 - Type 2 diabetes mellitus with hyperglycemia Comprehensive [place]. Panel Fast 06/17/24 E11.65 - Type 2 diabetes mellitus with hyperglycemia Hemoglobin A1c 06/17/24 E11.65 - Type 2 diabetes mellitus with hyperglycemia Referrals Orthopedics Referral G56.21 - Lesion of ulnar nerve, right upper limb General Surgery Referral L98.7 - Excessive and redundant skin and subcutaneous tissue Medications: New ibuprofen 800 mg PO Q8H 42 tabs 0RF 14 days M51.16 - Intervertebral disc disorders with radiculopathy, lumbar region multivitamin (Daily Multi-Vitamin tablet) 1 tab PO DAILY 90 tabs 1RF 90 days Z98.84 - Bariatric surgery status Refilled tramadol 50 mg PO BID PRN 14 tabs 1RF pain 7 days M51.16 - Intervertebral disc disorders with radiculopathy, lumbar region Coding Level of Care Code Est Pt Level 4 (09649) Diagnoses Cubital tunnel syndrome on right G56.21 S/P bariatric surgery Z98.84 Excess skin of abdomen L98.7 Type 2 diabetes mellitus with hyperglycemia, without long-term current use of insulin E11.65 Diabetes mellitus intermediate frame tender insulin use: without detention use Diabetes mellitus complication status: with hyperglycemia
== END 2024-06-17 14:32 | disposition home or self-care (01) ==
PROVIDERS: PCP Physician Assistant; Visit Provider Physician Assistant
DX: G56.21 Lesion of ulnar nerve, right upper limb (principal); Z98.84 Bariatric surgery status; L98.7 Excessive and redundant skin and subcutaneous tissue; E11.65 Type 2 diabetes mellitus with hyperglycemia

== ENCOUNTER → 2024-06-17 13:41 | Outpatient (BNVA) | payer OTHER, SELFPAY | PROVIDERS: PCP Physician Assistant; Visit Provider Physician Assistant | DX: G56.21 Lesion of ulnar nerve, right upper limb (principal); L98.7 Excessive and redundant skin and subcutaneous tissue; E11.65 Type 2 diabetes mellitus with hyperglycemia; Z98.84 Bariatric surgery status ==

== ENCOUNTER 2024-06-25 10:42 | Outpatient (AMB) | payer OTHER, SELFPAY ==
--- NOTE | 2024-06-25 10:45 | MHC.OFFVIS ---
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 Patient reports carpal tunnel and cubital tunnel surgery done about 7 years ago at [facility]. Recently about 3 months ago he has been experiencing pain radiating up and down his arm from his elbow. He has numbness and tingling. States discomfort with shaking another persons hand. His bicep area is tender to the touch. Denies any recent injury. He is scheduled for a nerve conduction on 07/27/24. Allergies No Known Allergies Allergy (Verified 06/25/24 10:52) Medication List - Last Reconciled 06/25/24 by Gisella Kinney PA-C ibuprofen 800 mg PO Q8H 14 days multivitamin (Daily Multi-Vitamin tablet) 1 tab PO DAILY 90 days tramadol 50 mg PO BID PRN 7 days HPI HPI SHAREPOINT CONSULTANT- Lesion of ulnar nerve, right upper limb: Details: 49-year-old right hand dominant male who presents to the office today for an evaluation of RUE. He has a history of CTR and cubital tunnel release about 7 years ago at [facility]. He reports he has been experiencing pain radiating up and down his arm from his elbow. He also experiences numbness and tingling in his fingers as well as discomfort with shaking another person?s hand. His bicep area is tender to touch. He denies any recent injury. [facility] Medical History (Updated 06/21/24 @ 08:15 by Kings Garay PA-C) Bleeding hemorrhoids Gallstones Elevated liver enzymes Vitamin D deficiency HLD (hyperlipidemia) Surgical History S/P cholecystectomy S/P laparoscopic cholecystectomy History of sleeve gastrectomy History of carpal tunnel release Family History Father Mental problem Substance abuse Mother Diabetes Cardiac arrest Social History Household Members: Significant Other and Family Household Members Other:: 3 Housing: Apartment Do you presently have visiting nurse or other home services: No Alcohol intake: current Alcohol intake frequency: a few times a week Patient Tobacco Use Status: Never used Tobacco e-Cigarette/Vaping Use: Never Used Second Hand Smoke Exposure: No Substance Use Type: Marijuana service: No Current occupational status: employed 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 Current occupational exposures/hazards: No Cognitive needs: No Hearing needs: No Vision needs: Yes Review of Systems Const All systems reviewed & are unremarkable except as noted in HPI and below Physical Exam Vital Signs: BMI result Body Mass Index 30.8 Const General: cooperative, healthy appearing, comfortable, no acute distress, well developed and alert Orientation/consciousness: patient oriented x3 HEENT Head: Yes normal to inspection, Yes normocephalic and Yes atraumatic Eyes General: appearance normal, both eyes and all related structures Resp Effort & Inspection: normal respiratory effort and able to speak in complete sentences Cardio Rate: regular rate Peripheral pulses: Peripheral pulses 2+ throughout GI Palpation (GI): Soft to palpation Skin Lesions: no lesions Rashes: no rashes Neuro General: patient oriented x3 Extrem Other: Right wrist and elbow: Normal to inspection.? Mild Tenderness over the medial aspect of the elbow and Positive Tinel?s along the cubital tunnel.? He has good ROM of the elbow, no pain with supination or pronation. Negative Tinel?s along the carpal tunnel. Numbness and tingling over the ulnar nerve distribution of the left hand.? Able to make a full fist and fully extend all fingers. Assessment & Plan Assessment & Plan (1) Cubital tunnel syndrome on right: Code(s): G56.21 - Lesion of ulnar nerve, right upper limb Category: Medical Plan He has an EMG scheduled at 07/27 which he will keep. Once the study is complete, he will call the office for a follow-up. He will use a night splint to help with his symptoms. And limitations as needed. Patient Instructions: Scribed for Gisella Kinney PA-C, by Bob Shea territory sales manager medical, on 06/25/2024 at 10:45 AM EST.? I, Gisella Kinney PA-C, have personally reviewed and agree with the information entered by the scribe. Coding Level of Care Code New Pt Level 3 (12045) Complex EM visit Add On G2211 Diagnoses Cubital tunnel syndrome on right G56.21
[2024-06-25 10:57] VITALS: BMI 30.8
== END 2024-06-25 11:11 | disposition home or self-care (01) ==
PROVIDERS: PCP Physician Assistant; Visit Provider Physician Assistant
DX: G56.21 Lesion of ulnar nerve, right upper limb (principal)
CPT/HCPCS: 99203

== ENCOUNTER → 2024-06-25 10:42 | Outpatient (BNVA) | payer OTHER, SELFPAY | PROVIDERS: PCP Physician Assistant; Visit Provider Physician Assistant ==

== ENCOUNTER 2024-08-11 16:12 | Outpatient (REF) | payer OTHER, SELFPAY ==
--- NOTE | ~2024-08-11 | XR_ITS ---
EXAMINATION: XR CHEST CLINICAL INFORMATION: Bronchitis. Cough. COMPARISON: X-ray dated January 14, 2020. TECHNIQUE: 2 views of the chest were obtained. FINDINGS: No consolidation, pleural effusion or pneumothorax. No hyperinflation. Calcified plaque thoracic aorta. Heart silhouette is normal in size. Multilevel thoracic spondylosis. XR/XR chest 2V IMPRESSION: No acute airspace disease. Electronically signed by: Anam Greer MD 08/12/2024 08:12 AM SANJAY
[2024-08-11 17:18] LABS: Influenza A PCR NEGATIVE (Negative); Influenza B PCR NEGATIVE (Negative); Resp Syncy Virus RNA Qual PCR NEGATIVE (Negative); SARS COV2 PCR INHOUSE NEGATIVE (Negative)
== END 2024-08-11 16:13 | disposition home or self-care (01) ==
LOC: HO.LAB 16:12
PROVIDERS: PCP Physician Assistant; Visit Provider Physician Assistant
DX: J40 Bronchitis, not specified as acute or chronic (principal); R09.89 Other specified symptoms and signs involving the circulatory and respiratory systems
CPT/HCPCS: 0241U; 71046

== ENCOUNTER → 2024-08-11 16:22 | Outpatient (BNV) | payer OTHER, SELFPAY | PROVIDERS: PCP Physician Assistant; Visit Provider Radiology Diagnostic Radiology | DX: J40 Bronchitis, not specified as acute or chronic (principal) | CPT/HCPCS: 71046 ==

== ENCOUNTER 2024-10-29 10:07 | Outpatient (REF) | payer OTHER, SELFPAY ==
[2024-10-29 10:39] LABS: Hematocrit 42.6 % (42.0-52.0); Hemoglobin 14.3 g/dl (14.0-18.0); Mean Corpuscular HGB Conc 33.6 g/dl (31.0-36.0); Mean Corpuscular Hemoglobin 29.3 pg (27.0-33.0); Mean Corpuscular Volume 87.3 fL (80.0-98.0); Mean Platelet Volume 10.8 fL (9.4-12.4); Platelet Count 300 X10*3/uL (160-400); Red Blood Count 4.88 X10*6/uL (4.60-5.80); Red Cell Distribution Width 11.9 % (11.0-16.0); White Blood Count 9.1 X10*3/uL (4.8-10.8)
[2024-10-29 10:49] LABS: Estimated Average Glucose 85 mg/dL; Hemoglobin A1C 98.4595 umol/L; Hemoglobin A1c % 4.6 % (<6.0); Total Hemoglobin (HGBA1C) 3624.8631 umol/L
--- OUTSIDE RECORDS SUMMARY | 2024-10-29 10:49 | XMS_ITS | Clinical Summary ---
Author Organization [facility] it[facility] Address [address] [place] [address] Care Team Providers Care Telegraph Equipment Maintainer Name Role Phone Eduardo Villanueva Primary Care Provider [phone] Social History Tobacco Use Types Packs/Day Years Used Date Smoking Tobacco: Former Smokeless Tobacco: Former Alcohol Use Standard Drinks/Week Comments Yes 0 (1 standard drink = 0.6 oz pur e alcohol) Sex and Gender Information Value Date Recorded Sex Assigned at Not on file Gender Identity Not on file Sexual Orientation Not on file Obstetrics History Plan of Treatment Health Maintenance Due Date Last Done Comments DTaP,Tdap,and Td Vaccines (1 - Tdap) 1992 Hepatitis B Vaccines (1 of 3 - 19+ 3-dose series) 1992 Zoster Vaccines (1 of 2) 2023 COVID-19 Vaccine ( - 2023-2 5 season) 2024 Influenza Vaccine (#1) 2024 HIB Vaccines Aged Out No longer eligi ble based on patient's age to complete this topic HPV Vaccines Aged Out No longer eligi ble based on patient's age to complete this topic Hepatitis A Vaccines Aged Out No long er eligible based on patient's age to complete this topic IPV Vaccines Aged Out No longer eligi ble based on patient's age to complete this topic MMR Vaccines Aged Out No longer eligi ble based on patient's age to complete this topic Meningococcal ACWY Vaccine Aged Out N o longer eligible based on patient's age to complete this topic Pneumococcal Vaccine: Pediat rics (0 to 5 Years) and At-Risk Patients (6 to 64 Years) Aged Out No longer eligible b ased on patient's age to complete this topic RSV Immunization Patients Un edmond 20 months Aged Out No longer eligible b ased on patient's age to complete this topic Varicella Vaccines Aged Out No longer eligible based on patient's age to complete this topic Care Teams Telegraph Equipment Maintainer Relationship Specialty Start Date End Date Eduardo Villanueva [address] [place] [address] Dr Marline MA PCP - General Internal Medicine 11/11/17
--- OUTSIDE RECORDS SUMMARY | 2024-10-29 10:49 | XMS_ITS | Clinical Summary ---
Author Organization [facility] Address [address] [place] [address] Care Team Providers Care Ornamental Plasterer Helper Name Role Phone Pcp, No Primary Care Provider Unavailabl e Allergies No known active allergies Medications Medication Sig Dispensed Refills Start Date End Date Status metFORMIN (GLUCOPHAGE) 500 MG tablet 12/19/2020 Active hydrochlorothiazide (HYDRODIURIL) 25 MG tablet Take 25 mg by mouth every morning. 10/30/2020 Active lisinopril-hydrochloro thiazide (PRINZIDE,ZESTORETIC) 10-12.5 MG per tablet Take 1 tablet by mouth daily. 12/06/2020 Active pioglitazone (ACTOS) 30 MG tablet Take 30 mg by mouth daily. 11/27/2020 Active Active Problems No known active problems Social History Tobacco Use Types Packs/Day Years Used Date Smoking Tobacco: Never Smokeless Tobacco: Never Sex and Gender Information Value Date Recorded Sex Assigned at Not on file Gender Identity Not on file Sexual Orientation Not on file Last Filed Vital Signs Vital Sign Reading Time Taken Comments Blood Pressure 140/82 12/30/2020 10:54 AM EDT Pulse 85 12/30/2020 10:54 AM EDT Temperature 36.6 ??C (97.8 ??F) 12/30/2020 10:54 AM E DT Respiratory Rate 12 05/04/2010 12:56 PM EDT Oxygen Saturation 98% 12/30/2020 10:54 AM EDT Inhaled Oxygen Concentration - - Weight 145 kg (320 lb) 12/30/2020 10:54 AM EDT Height 182.9 cm (6') 12/30/2020 10:54 AM EDT Body Mass Index 43.4 12/30/2020 10:54 AM EDT Plan of Treatment Health Maintenance Due Date Last Done Comments Hepatitis C Virus Screening 1973 HIV Screening 1986 DTaP/Tdap/Td Vaccines (1 - Tdap) 1992 Hepatitis B Vaccines (1 of 3 - 19+ 3-dose series) 1992 Colonoscopy 2018 Pneumococcal Vaccines 50+ (1 of 1 - PCV) 2023 Zoster (Shingles) Vaccine (1 of 2) 2023 Influenza Vaccine 04/29/2024 07/13/2020 COVID-19 Vaccine (1 - 2023-2 5 season) 2024 Pneumococcal Vaccine: Pediat cassandra (0-5 Years) and At-Risk Patients (6 to 49 Years) Aged Out No longer eligible b ased on patient's age to complete this topic Care Teams Ornamental Plasterer Helper Relationship Specialty Start Date End Date Pcp, No PCP - General General Medicine 12/04/20
[2024-10-29 11:15] LABS: Alanine Aminotransferase 16 U/L (0-40); Albumin Level 4.3 g/dL (3.5-5.0); Alkaline Phosphatase 50 U/L (39-117); Anion Gap 9 (12-20); Aspartate Amino Transferase 19 U/L (5-37); Bilirubin Total 1.5 mg/dL (0.0-1.0); Blood Urea Nitrogen 17 mg/dL (9-16); Calcium 9.2 mg/dL (8.4-10.2); Carbon Dioxide 28 mmol/L (22-29); Chloride 107 mmol/L (96-108); Cholesterol 128 mg/dL (<200); Estimated Glomerular Filt Rate > 60; Glucose Fasting 91 mg/dL (60-99); HDL Cholesterol 53 mg/dL (>40); LDL Cholesterol Calculated 69 mg/dL (<100); Potassium 4.2 mmol/L (3.3-5.1); Sodium 140 mmol/L (135-145); Total Protein 7.8 g/dL (6.5-8.0); Triglycerides 34 mg/dL (<150)
[2024-10-29 11:28] LABS: Creatinine Urine 189.44 mg/dL; Microalbum/Creatinine Ratio Ur 6.8 ug/mg cr (<30)
[2024-10-29 11:33] LABS: Vitamin D 25-OH Total 21.4 ng/mL (>30)
== END 2024-10-29 10:08 | disposition home or self-care (01) ==
LOC: HO.LAB 10:07
PROVIDERS: PCP Physician Assistant; Visit Provider Physician Assistant
DX: E11.65 Type 2 diabetes mellitus with hyperglycemia (principal); I10 Essential (primary) hypertension; E78.5 Hyperlipidemia, unspecified; E55.9 Vitamin D deficiency, unspecified
CPT/HCPCS: 36415; 80053; 80061; 82043; 82306; 82570; 83036; 85027

== ENCOUNTER → 2024-11-04 14:40 | Outpatient (BNVA) | payer OTHER, SELFPAY | PROVIDERS: PCP Physician Assistant; Visit Provider Physician Assistant | DX: Z00.00 Encounter for general adult medical examination without abnormal findings (principal); Z23 Encounter for immunization; E55.9 Vitamin D deficiency, unspecified; L98.7 Excessive and redundant skin and subcutaneous tissue; E11.65 Type 2 diabetes mellitus with hyperglycemia; F41.1 Generalized anxiety disorder | CPT/HCPCS: 90471; 90656; 96127 ==

== ENCOUNTER 2025-02-01 11:31 | Outpatient (AMB) | payer OTHER, SELFPAY ==
--- NOTE | 2025-02-01 11:38 | A.OFFPC_ITS ---
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 Required: No Accompanied by: Self / Same As Patient Allergies No Known Allergies Allergy (Verified 02/01/25 12:05) Medication List - Last Reconciled 02/01/25 by Kings Garay PA-C cholecalciferol (vitamin D3) 50 mcg PO DAILY 90 days ibuprofen 800 mg PO Q8H 14 days ketoconazole 2% 1 appl topical DAILY 30 days multivitamin (Daily Multi-Vitamin tablet) 1 tab PO DAILY 90 days semaglutide (Ozempic) 0.5 mg (0.736 mL) subcut QWEEK 4 weeks tramadol 50 mg PO BID PRN 7 days Tobacco use date assessed: 11/04/24 Dental Screening Dental Screen Date: 11/04/24 HPI f/u weight check HPI Details Patient is a 49-year-old male here today for a follow-up visit Patient has a past medical history significant for status post bariatric surgery, history of hypertension, type 2 diabetes and hyperlipidemia. Concern--> he reports over last 3-4 days feeling sinus pressure/pain, muscle aches and fatigue. He would like a note for work so that he can rest at home. PLAN; will send for viral testing .. Status post bariatric surgery: Did have bariatric surgery in [place] in 2022. He is still interested in getting an abdominal plasty due to his excess skin and has been followed by by plastic surgeon and awaiting insurance approval for abdominoplasty. Often getting tinea infections under his excess skin which bothers him a lot. Type 2 diabetes: Patient has started Ozempic 0.25 mg has noticed reduce in his appetite. Has lost 10 lb since last office visit. Today's A1c acceptable at 4.2. He denies any episodes of hypoglycemia PFSH Medical History Bleeding hemorrhoids Gallstones Elevated liver enzymes Vitamin D deficiency HLD (hyperlipidemia) Surgical History S/P cholecystectomy S/P laparoscopic cholecystectomy History of sleeve gastrectomy History of carpal tunnel release Family History Father Mental problem Substance abuse AIDS Mother Diabetes Cardiac arrest Social History Household Members: Significant Other and Family Household Members Other:: 3 Housing: Apartment Do you presently have visiting nurse or other home services: No Alcohol intake: current Alcohol intake frequency: a few times a month Alcohol type: beer Patient Tobacco Use Status: Never used Tobacco e-Cigarette/Vaping Use: Never Used Second Hand Smoke Exposure: No Substance Use Type: Marijuana service: No Current occupational status: employed 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 Current occupational exposures/hazards: No Cognitive needs: No Hearing needs: No Vision needs: Yes Questionnaire Thrive Questionnaire Date Thrive assessed: 02/01/25 I am a: Patient What is your living situation today?: I have a steady place to live Within the past 12 months, did the food you bought not last and you didn't have the money to get more?: I choose not to answer this question Within the past 12 months, did you worry whether your food would run out before you got money to buy more?: I choose not to answer this question Do you have trouble paying for medicines?: I choose not to answer this question Do you have trouble getting transportation to medical appointments?: I choose not to answer this question Do you have trouble paying your heating and electricity bill?: I choose not to answer this question Do you have trouble taking care of your child, family member or friend?: I choose not to answer this question Do you have trouble with day-to-day activities such as bathing, preparing meals, shopping, managing finances, etc.?: I choose not to answer this question Are you currently unemployed and looking for a job?: No Are you interested in more education?: I choose not to answer this question Currently or been in a relationship where the following occur: I choose not to answer THRIVE Score: 0 FELIPE-7 AMB Questionnaire FELIPE-7 Date FELIPE - 7 assessed: 11/04/24 Source: Developed by Drs. Tres Sims, Tita Calderon, Rj Salter and colleagues, with an educational klaus from [employer]. Review of Systems Const Denies headache(s) Eyes Denies loss of vision ENT Denies vertigo, Denies dizziness, Denies headache(s) and Denies sore throat Card Denies chest pain, Denies leg edema and Denies lightheadedness Resp Denies cough, Denies hemoptysis and Denies wheezing GI Denies abdominal pain, Denies melena, Denies constipation, Denies diarrhea and Denies vomiting Denies dysuria, Denies urinary frequency and Denies urinary urgency Musc Denies arthralgias, Denies joint swelling, Denies numbness and Denies tingling Neuro Denies Abnormal speech present, Denies behavioral changes, Denies vertigo, Denies dizziness, Denies headache(s), Denies loss of vision, Denies memory loss, Denies numbness and Denies tingling Psych Denies anxiety, Denies behavioral changes, Denies depression, Denies memory loss and Denies panic attacks Robi/Lymph Denies easy bleeding and Denies easy bruising Aller/Immun Denies wheezing Physical exam (Primary Care) Vital Signs: Last Vital Signs Temp 97.7 F 02/01/25 11:40 Pulse 82 02/01/25 11:40 BP 120/84 02/01/25 11:40 Pulse Ox 97 02/01/25 11:40 Oxygen Delivery Method Room Air 02/01/25 11:40 BMI result Body Mass Index 30.3 BMI Assessment/Plan discussion: High BMI High, discussed plan: lifestyle, weight reduction, dietary and physical activity Tobacco/Smoking Status: Tobacco use Status Tobacco use date assessed 11/04/24 02/01/25 11:39 Patient Tobacco Use Status Never used Tobacco 02/01/25 11:39 e-Cigarette/Vaping Use Never Used 02/01/25 11:39 Thrive Assessment: Date of Thrive Assessment Date Thrive assessed 02/01/25 02/01/25 11:48 Currently or been in a relationship where the following occur: I choose not to answer Const General: healthy appearing, no acute distress, alert and awake Nutritional Appearance: well nourished Orientation/consciousness: oriented to person, oriented to place and oriented to time HENMT Ears: TM's normal bilaterally General nose exam: Normal nasal mucous membranes and turbinates present Eyes Conjunctivae: conjunctivae normal Sclerae: sclerae normal Pupils: Equal, round and reactive pupils present Neck Neck: Yes no lymphadenopathy and Yes no JVD Thyroid: Thyroid normal Carotids: no bruits Resp Effort & Inspection: normal respiratory effort and not tachypneic Auscultation: no crackles, no rales, no rhonchi and no wheezes Cardio Rate: regular rate Rhythm: regular rhythm Heart sounds: no murmurs and normal S1 and S2 GI Palpation (GI): Soft to palpation, nontender, no hepatomegaly and no splenome tara Auscultation: normal bowel sounds Skin General skin exam: no rashes or lesions noted and dry skin Neuro General: oriented to person, oriented to place and oriented to time Cranial nerves: Yes Equal, round and reactive pupils present Speech: No Abnormal speech present Gait exam (Neuro): Normal gait present Motor exam (neuro): no tremor noted Extrem Right upper extremity: full ROM Left upper extremity: full ROM Right lower extremity: full ROM; no edema Left lower extremity: full ROM; no edema Psych Mental Status: mental status grossly normal Speech and movement: Normal speech and movement present Affect: normal affect Attitude: cooperative Thought process: Normal thought process present Results AMB Hemoglobin A1c AMB Hemoglobin A1c 4.2 % Last Edit by ERICA Lowe on 02/01/25 11:52 Results Reviewed Results Reviewed: Laboratory Last Values Hgb A1c (Clinic) 4.2 % (4.0-6.0) 02/01/25 11:51 Coding Level of Care Code Est Pt Level 4 (44244) Diagnoses Type 2 diabetes mellitus with hyperglycemia, without long-term current use of insulin E11.65 Diabetes mellitus long term acute care registered nurse insulin use: without long-term use Diabetes mellitus complication status: with hyperglycemia Subacute frontal sinusitis J01.10 Chronicity: subacute Sinusitis location: frontal Tinea pedis of both feet B35.3 Assessment & Plan Assessment & Plan (1) T2DM (type 2 diabetes mellitus): Code(s): E11.9 - Type 2 diabetes mellitus without complications Category: Medical Qualifiers: Diabetes mellitus long-term insulin use: without long-term use Diabetes mellitus complication status: with hyperglycemia Qualified Code(s): E11.65 - Type 2 diabetes mellitus with hyperglycemia Plan: Patient's most recent A1c acceptable. He will continue on Ozempic 0.5 mg weekly to maintain weight loss and glycemic control. He has noted some additional weight gain over the last few years. He is still waiting insurance approval for his abdominal plasty (2) Sinusitis: Code(s): J32.9 - Chronic sinusitis, unspecified Category: Medical Qualifiers: Chronicity: subacute Sinusitis location: frontal Qualified Code(s): J01.10 - Acute frontal sinusitis, unspecified Plan: As per HPI patient has signs and symptoms of a sinus infection. Will supply patient with an antibiotic to hold on to and if not better in the next 3-4 days commence antibiotic treatment. (3) Tinea pedis of both feet: Code(s): B35.3 - Tinea pedis Category: Medical Plan: Will supply patient with prescription cream for his tinea pedis. Tinea pedis has been a chronic condition for him. We did discuss oral antifungal treatment though will hold off on this for now Orders: Orders AMB Hemoglobin A1c 02/01/25 E11.65 - Type 2 diabetes mellitus with hyperglycemia Comprehensive [place]. Panel Fast 02/01/25 E11.65 - Type 2 diabetes mellitus with hyperglycemia Hemoglobin A1c 02/01/25 E11.65 - Type 2 diabetes mellitus with hyperglycemia Lipid Panel 02/01/25 E78.5 - Hyperlipidemia, unspecified SARS-CoV2/FLU/RSV 02/01/25 J01.10 - Acute frontal sinusitis, unspecified Complete Blood Count no Diff 02/01/25 E11.65 - Type 2 diabetes mellitus with hyperglycemia Medications: New ciclopirox 0.77% (Ciclodan) 1 appl topical BID 30 grams 3RF 4 weeks B35.3 - Tinea pedis amoxicillin-pot clavulanate 875-125 mg 1 tab PO BID 10 tabs 0RF 5 days J01.10 - Acute frontal sinusitis, unspecified Refilled tramadol 50 mg PO BID PRN 14 tabs 1RF pain 7 days M51.16 - Intervertebral disc disorders with radiculopathy, lumbar region
[2025-02-01 11:40] VITALS: BP 120/84; PULSE 82; TEMP 36.5; O2SAT 97; BMI 30.3
--- OUTSIDE RECORDS SUMMARY | 2025-02-01 13:15 | XMS_ITS | Clinical Summary ---
Author Organization [facility] Address [address] [place] [address] Care Team Providers Care Boot Lace Cutter Machine Name Role Phone Eduardo Villanueva Primary Care Provider [phone] Social History Tobacco Use Types Packs/Day Years Used Date Smoking Tobacco: Former Smokeless Tobacco: Former Alcohol Use Standard Drinks/Week Comments Yes 0 (1 standard drink = 0.6 oz pur e alcohol) Sex and Gender Information Value Date Recorded Sex Assigned at Not on file Legal Sex Male 4:56 PM EST Gender Identity Not on file Sexual Orientation Not on file Obstetrics History Plan of Treatment Health Maintenance Due Date Last Done Comments DTaP,Tdap,and Td Vaccines (1 - Tdap) 1992 Hepatitis B Vaccines (1 of 3 - 19+ 3-dose series) 1992 Pneumococcal Vaccine: 50+ Ye ars (1 of 1 - PCV) 2023 Zoster Vaccines (1 of 2) 2023 COVID-19 Vaccine ( - 2023-2 5 season) 2024 Influenza Vaccine (Season Ended) 2025 HIB Vaccines Aged Out No longer eligi [...] patient's age to complete this topic Meningococcal B Vaccine Aged Out No l onger eligible based on patient's age to complete [...] age to complete this topic Care Teams Boot Lace Cutter Machine Relationship Specialty Start Date End Date Eduardo Villanueva [address] [place] [address] Dr Marline MA PCP - General Internal Medicine 11/11/17
--- OUTSIDE RECORDS SUMMARY | 2025-02-01 13:15 | XMS_ITS | Clinical Summary ---
Author Organization [facility] Address [address] [place] [address] Care Team Providers Care Tire Repairer Name Role Phone Pcp, No Primary Care Provider Unavailabl e Allergies No known active allergies Medications metFORMIN (GLUCOPHAGE) 500 MG tablet 12/19/2020 Active hydrochlorothiaz melanie (HYDRODIURIL) 25 MG tablet Take 25 mg by mouth every morning. 10/30/2020 Active lisinopril-hydro chlorothiazide (PRINZIDE,ZESTOR ETIC) 10-12.5 MG per tablet Take 1 tablet by mouth daily. 12/06/2020 Active pioglitazone (ACTOS) 30 MG tablet Take 30 mg by mouth daily. 11/27/2020 Active Active Problems No known active problems Social History Tobacco Use Types Packs/Day Years Used Date Smoking Tobacco: Never Smokeless Tobacco: Never Sex and Gender Information Value Date Recorded Sex Assigned at Not on file Legal Sex Male 6:14 PM EDT Gender Identity Not on file Sexual Orientation [...] (1 of 3 - 19+ 3-dose series) 02/28 Colonoscopy 2018 Pneumococcal Vaccines 50+ (1 of 1 - PCV) 2023 Zoster (Shingles) Vaccine (1 of 2) 2023 COVID-19 Vaccine (1 - season) 2024 Influenza Vaccine 04/29/2025 07/13/2020 Insurance [facility] Care Teams Tire Repairer Relationship Specialty Start Date End Date Pcp, No PCP - General General Medicine 12/04/20
== END 2025-02-01 12:25 | disposition home or self-care (01) ==
LOC: HO.HMCH 11:32
PROVIDERS: PCP Physician Assistant; Visit Provider Physician Assistant
DX: E11.65 Type 2 diabetes mellitus with hyperglycemia (principal); J01.10 Acute frontal sinusitis, unspecified; B35.3 Tinea pedis

== ENCOUNTER → 2025-02-01 11:31 | Outpatient (BNVA) | payer OTHER, SELFPAY | PROVIDERS: PCP Physician Assistant; Visit Provider Physician Assistant | DX: E11.65 Type 2 diabetes mellitus with hyperglycemia (principal); J01.10 Acute frontal sinusitis, unspecified; B35.3 Tinea pedis | CPT/HCPCS: 83036 ==

== ENCOUNTER 2025-05-26 09:44 | Outpatient (AMB) | payer OTHER, SELFPAY ==
[2025-05-26 09:47] VITALS: BP 120/82; PULSE 76; TEMP 36.2; O2SAT 99; BMI 29.5
--- NOTE | 2025-05-26 09:47 | MHC.PC.OV ---
Vital Signs 05/26/25 09:47 Height 6 ft Weight 217 lb 6 oz BMI 29.5 BP 120/82 Blood Pressure Location Lt brachial Position Sitting Pulse 76 Temp 97.1 F Temp Source Temporal Artery Scan Pulse Oximetry (%) 99 Oxygen Delivery Method Room Air Intake Visit Reasons: 3 month f/u Childbirth And Infant Care Teacher Required: No Accompanied by: Self / Same As Patient Allergies No Known Allergies Allergy (Verified 05/26/25 09:51) Medication List - Last Reconciled 05/26/25 by Kings Garay PA-C ciclopirox 0.77% (Ciclodan) 1 appl topical BID 4 weeks ibuprofen 800 mg PO Q8H 14 days ketoconazole 2% 1 appl topical DAILY 30 days multivitamin (Daily Multi-Vitamin tablet) 1 tab PO DAILY 90 days semaglutide (Ozempic) 0.5 mg (0.736 mL) subcut QWEEK 4 weeks tramadol 50 mg PO BID PRN 7 days Tobacco use date assessed: 05/26/25 Dental Screening Dental Screen Date: 11/04/24 Did you have a dental visit in the last 12 months?: No Did you have a dental problem in the last 6 months where you did not have access to dental care?: No Was dental information given to patient?: No HPI 3 month f/u HPI Details Patient is a 50-year-old male here today for a follow-up visit Patient has a past medical history significant for status post bariatric surgery, history of hypertension, type 2 diabetes and hyperlipidemia. Concern--> The left shoulder pain has been ongoing for approximately six weeks, with no known inciting injury. The pain is exacerbated by inactivity and lifting weights, while movement during work seems to alleviate it. The patient reports significant pain at night, affecting his sleep, and has been using tramadol and ibuprofen for pain management. .. Stress and anxiety: The patient also reports symptoms of depression, feeling overwhelmed and emotional, particularly at night. 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 Needs to work letter for his absence today from work. He is considering [facility] continues leave .. Status post bariatric surgery: Did have bariatric surgery in [place] in 2022. He is still interested in getting an abdominal plasty due to his excess skin and has been followed by by plastic surgeon and awaiting insurance approval for abdominoplasty. Often getting tinea infections under his excess skin which bothers him a lot. Type 2 diabetes: He continues on Ozempic 0.5 mg weekly. mg has noticed reduce in his appetite. He has lost weight since last office visit. Today's A1c acceptable at 4.2. He denies any episodes of hypoglycemia PFSH Medical History Bleeding hemorrhoids Gallstones Elevated liver enzymes Vitamin D deficiency HLD (hyperlipidemia) Surgical History S/P cholecystectomy S/P laparoscopic cholecystectomy History of sleeve gastrectomy History of carpal tunnel release Family History Father Mental problem Substance abuse AIDS Mother Diabetes Cardiac arrest Family/Other Colon cancer Social History Household Members: Significant Other and Family Household Members Other:: 3 Housing: Apartment Do you presently have visiting nurse or other home services: No Alcohol intake: current Alcohol intake frequency: a few times a month Alcohol type: beer Patient Tobacco Use Status: Never used Tobacco e-Cigarette/Vaping Use: Never Used Second Hand Smoke Exposure: No Substance Use Type: Marijuana service: No Current occupational status: employed 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 Current occupational exposures/hazards: No Cognitive needs: No Hearing needs: No Vision needs: Yes Questionnaire Thrive Questionnaire Date Thrive assessed: 10/28/24 I am a: Patient What is your living situation today?: I have a steady place to live Within the past 12 months, did the food you bought not last and you didn't have the money to get more?: I choose not to answer this question Within the past 12 months, did you worry whether your food would run out before you got money to buy more?: I choose not to answer this question Do you have trouble paying for medicines?: I choose not to answer this question Do you have trouble getting transportation to medical appointments?: I choose not to answer this question Do you have trouble paying your heating and electricity bill?: I choose not to answer this question Do you have trouble taking care of your child, family member or friend?: I choose not to answer this question Do you have trouble with day-to-day activities such as bathing, preparing meals, shopping, managing finances, etc.?: I choose not to answer this question Are you currently unemployed and looking for a job?: No Are you interested in more education?: I choose not to answer this question Currently or been in a relationship where the following occur: I choose not to answer THRIVE Score: 0 FELIPE-7 AMB Questionnaire FELIPE-7 Date FELIPE - 7 assessed: 11/04/24 Source: Developed by Drs. Tres Sims, Tita Calderon, Rj Salter and colleagues, with an educational klaus from [employer]. Review of Systems Const Denies headache(s) Eyes Denies loss of vision ENT Denies vertigo, Denies dizziness, Denies headache(s) and Denies sore throat Card Denies chest pain, Denies leg edema and Denies lightheadedness Resp Denies cough, Denies hemoptysis and Denies wheezing GI Denies abdominal pain, Denies melena, Denies constipation, Denies diarrhea and Denies vomiting Denies dysuria, Denies urinary frequency and Denies urinary urgency Musc Denies arthralgias, Denies joint swelling, Denies numbness and Denies tingling Neuro Denies Abnormal speech present, Denies behavioral changes, Denies vertigo, Denies dizziness, Denies headache(s), Denies loss of vision, Denies memory loss, Denies numbness and Denies tingling Psych Denies anxiety, Denies behavioral changes, Denies depression, Denies memory loss and Denies panic attacks Robi/Lymph Denies easy bleeding and Denies easy bruising Aller/Immun Denies wheezing Physical exam (Primary Care) Vital Signs: Last Vital Signs Temp 97.1 F 05/26/25 09:47 Pulse 76 05/26/25 09:47 BP 120/82 05/26/25 09:47 Pulse Ox 99 05/26/25 09:47 Oxygen Delivery Method Room Air 05/26/25 09:47 BMI result Body Mass Index 29.5 Tobacco/Smoking Status: Tobacco use Status Tobacco use date assessed 05/26/25 05/26/25 09:48 Patient Tobacco Use Status Never used Tobacco 05/26/25 09:48 e-Cigarette/Vaping Use Never Used 05/26/25 09:48 Thrive Assessment: Date of Thrive Assessment Date Thrive assessed 10/28/24 05/26/25 09:48 Currently or been in a relationship where the following occur: I choose not to answer Const General: healthy appearing, no acute distress, alert and awake Nutritional Appearance: well nourished Orientation/consciousness: oriented to person, oriented to place and oriented to time HENMT Ears: TM's normal bilaterally General nose exam: Normal nasal mucous membranes and turbinates present Eyes Conjunctivae: conjunctivae normal Sclerae: sclerae normal Pupils: Equal, round and reactive pupils present Neck Neck: Yes no lymphadenopathy and Yes no JVD Thyroid: Thyroid normal Carotids: no bruits Resp Effort & Inspection: normal respiratory effort and not tachypneic Auscultation: no crackles, no rales, no rhonchi and no wheezes Cardio Rate: regular rate Rhythm: regular rhythm Heart sounds: no murmurs and normal S1 and S2 GI Other: NOTABLE EXCESS ABDOMINAL SKIN, UNDER SKIN FLAP IRRITATED SLIGHTLY ERYTHEMATOUS SKIN. Palpation (GI): Soft to palpation, nontender, no hepatomegaly and no splenomegaly Auscultation: normal bowel sounds Skin General skin exam: no rashes or lesions noted and dry skin Neuro General: oriented to person, oriented to place and oriented to time Cranial nerves: Yes Equal, round and reactive pupils present Speech: No Abnormal speech present Gait exam (Neuro): Normal gait present Motor exam (neuro): no tremor noted Extrem Right upper extremity: full ROM Left upper extremity: full ROM Right lower extremity: full ROM; no edema Left lower extremity: full ROM; no edema Psych Mental Status: mental status grossly normal Speech and movement: Normal speech and movement present Affect: normal affect Attitude: cooperative Thought process: Normal thought process present Results AMB Hemoglobin A1c AMB Hemoglobin A1c 4.6 % Last Edit by Gladys Neville CMA on 05/26/25 09:58 Results Reviewed Results Reviewed: Laboratory Last Values Hgb A1c (Clinic) 4.6 % (4.0-6.0) 05/26/25 09:51 Coding Level of Care Code Est Pt Level 4 (47452) Diagnoses Tendinitis of left shoulder M77.8 Type 2 diabetes mellitus with hyperglycemia, without long-term current use of insulin E11.65 Diabetes mellitus complication status: with hyperglycemia 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 Physical therapy is recommended to address the tendinitis and improve shoulder mobility. (2) T2DM (type 2 diabetes mellitus): Code(s): E11.9 - Type 2 diabetes mellitus without complications Category: Medical Qualifiers: Diabetes mellitus complication status: with hyperglycemia Diabetes mellitus fci insulin use: without fci use Qualified Code(s): E11.65 - Type 2 diabetes mellitus with hyperglycemia Plan: Patient's most recent A1c acceptable. Has lost weight since last office visit He will continue on Ozempic 0.5 mg weekly to maintain weight loss and glycemic control. He has noted some additional weight gain over the last few years. He is still waiting insurance approval for his abdominal plasty (3) Excess skin of abdomen: Code(s): L98.7 - Excessive and redundant skin and subcutaneous tissue Category: Medical Plan: Has excessive abdominal skin since his bariatric surgery, often gets skin infections on though his skin abdominal folds. Has not been able to get clear communication with his previous plastic surgeon. Would like a 2nd opinion from a new plastic surgeon to evaluate for excess abdominal skin removal (4) Stress at home: Code(s): F43.9 - Reaction to severe stress, unspecified Category: Social Hx Plan: The patient expressed hesitancy towards mental health services due to past experiences. A mental health therapist referral was discussed as a potential option for support. Orders: Orders XR shoulder LT min 2V Today M77.8 - Other enthesopathies, not elsewhere classified PT Evaluation and Treatment Today M77.8 - Other enthesopathies, not elsewhere classified AMB Hemoglobin A1c Today Z13.9 - Encounter for screening, unspecified Referrals Plastic Surgery Referral L98.7 - Excessive and redundant skin and subcutaneous tissue Gastroenterology Referral Z12.11 - Encounter for screening for malignant neoplasm of colon Orthopedics Referral M77.8 - Other enthesopathies, not elsewhere classified Medications: Refilled multivitamin (Daily Multi-Vitamin tablet) 1 tab PO DAILY 90 tabs 1RF 90 days Z98.84 - Bariatric surgery status tramadol 50 mg PO BID PRN 14 tabs 1RF pain 7 days M51.16 - Intervertebral disc disorders with radiculopathy, lumbar region
--- OUTSIDE RECORDS SUMMARY | 2025-05-26 10:53 | XMS_ITS | Clinical Summary ---
Author Organization [facility] Address [address] [place] [address] Care Team Providers Care Membership Counselor Name Role Phone Eduardo Villanueva Primary Care Provider [phone] Social History Tobacco Use Types Packs/Day Years [...] Vaccines (1 of 2) 2023 COVID-19 Vaccine (1 - 2023-2 5 season) 2024 Depression Screening 09/29/2024 Influenza Vaccine (#1) 2025 HIB Vaccines Aged Out No longer [...] age to complete this topic Care Teams Membership Counselor Relationship Specialty Start Date End Date Eduardo Villanueva [address] [place] [address] Dr Marline [place] PCP - General Internal Medicine 11/11/17
--- OUTSIDE RECORDS SUMMARY | 2025-05-26 10:53 | XMS_ITS | Clinical Summary ---
Author Organization [facility] Address [address] [place] [address] Care Team Providers Care Straight Line Press Setter Name Role Phone Pcp, No Primary Care [...] 85 12/30/2020 10:54 AM EDT Temperature 36.6 C (97.8 F) 12/30/2020 10:54 AM EDT Respiratory Rate 12 05/04/2010 12:56 PM EDT [...] season) 2024 Influenza Vaccine 04/29/2025 07/13/2020 Insurance [facility] Care Teams Straight Line Press Setter Relationship Specialty Start Date End Date Pcp, No PCP - General General Medicine 12/04/20
== END 2025-05-26 10:27 | disposition home or self-care (01) ==
LOC: HO.HMCH 09:45
PROVIDERS: PCP Physician Assistant; Visit Provider Physician Assistant
DX: M77.8 Other enthesopathies, not elsewhere classified (principal); E11.65 Type 2 diabetes mellitus with hyperglycemia; L98.7 Excessive and redundant skin and subcutaneous tissue; F43.9 Reaction to severe stress, unspecified; Z13.9 Encounter for screening, unspecified

== ENCOUNTER → 2025-05-26 09:44 | Outpatient (BNVA) | payer OTHER, SELFPAY | PROVIDERS: PCP Physician Assistant; Visit Provider Physician Assistant | DX: M25.512 Pain in left shoulder (principal); L98.7 Excessive and redundant skin and subcutaneous tissue; E11.65 Type 2 diabetes mellitus with hyperglycemia; F41.9 Anxiety disorder, unspecified; M77.8 Other enthesopathies, not elsewhere classified; F43.9 Reaction to severe stress, unspecified; M51.16 Intervertebral disc disorders with radiculopathy, lumbar region; Z98.84 Bariatric surgery status | CPT/HCPCS: 83036 ==

== ENCOUNTER 2025-08-17 08:24 | Outpatient (AMB) | payer OTHER, SELFPAY ==
--- NOTE | 2025-08-17 08:35 | MHC.OFFVIS ---
Vital Signs 08/17/25 08:40 Height 6 ft Weight 217 lb BMI 29.4 Intake Visit Reasons: NewProb-Left shoulder pain Intake Note: Tomasz is a 50 year old right hand dominant male who presents today as a new problem for his left shoulder pain. Patient reports his pain has been present for 5-6 months. Complains of difficulty with sleeping and lifting his arm. Denies injury. His pain is located at the posterior aspect of of his upper arm that radiates to his shoulder. No numbness or tingling. No relief with the use of ibuprofen and prescribed tramadol provides him with relief when his pain becomes intolerable. No previous treatment. Allergies No Known Allergies Allergy (Verified 08/17/25 08:44) Medication List - Last Reconciled 08/17/25 by Gisella Kinney PA-C ciclopirox 0.77% (Ciclodan) 1 appl topical BID 4 weeks ibuprofen 800 mg PO Q8H 14 days ketoconazole 2% 1 appl topical DAILY 30 days multivitamin (Daily Multi-Vitamin tablet) 1 tab PO DAILY 90 days semaglutide (Ozempic) 0.5 mg (0.736 mL) subcut QWEEK 4 weeks tramadol 50 mg PO BID PRN 7 days HPI HPI NewProb-Left shoulder pain: Details: 50 yo male presents to the office today for left shoulder pain. He has pain with raching and sleeping at night. He states the pain saucedo been present for about 5-6 months. He states he has not had PT or injections. 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 [facility] Medical History Bleeding hemorrhoids Gallstones Elevated liver enzymes Vitamin D deficiency HLD (hyperlipidemia) Surgical History S/P cholecystectomy S/P laparoscopic cholecystectomy History of sleeve gastrectomy History of carpal tunnel release Family History Father Mental problem Substance abuse AIDS Mother Diabetes Cardiac arrest Family/Other Colon cancer Social History Household Members: Significant Other and Family Household Members Other:: 3 Housing: Apartment Do you presently have visiting nurse or other home services: No Alcohol intake: current Alcohol intake frequency: a few times a month Alcohol type: beer Patient Tobacco Use Status: Never used Tobacco e-Cigarette/Vaping Use: Never Used Second Hand Smoke Exposure: No Substance Use Type: Marijuana service: No Current occupational status: employed 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 Pain with olivas and cross body abduction. Pain with RTC strength testing, no significant weakness. Results Reviewed Results Reviewed: X-rays of the left shoulder obtained in the office today show type 2 acromion well-preserved joint space Assessment & Plan Assessment & Plan (1) Tendinitis of left shoulder: Code(s): M77.8 - Other enthesopathies, not elsewhere classified Category: Medical Plan: We discussed options today which includes physical therapy and steroid injections. The patient has an upcoming surgery so we will hold off on steroid injections at this time to avoid immunosuppression. I did place an order for physical therapy and gave him the information to call and make an appointment. I also gave him a handout of some rotator cuff strength exercises to work on. Once he is cleared from his surgery and if he is interested in a steroid injection he can contact our office to schedule otherwise he will follow up as needed. Orders: Orders XR shoulder LT min 2V Today M25.512 - Pain in left shoulder Coding Level of Care Code New Pt Level 3 (05049) Complex EM visit Add On G2211 Diagnoses Tendinitis of left shoulder M77.8
[2025-08-17 08:40] VITALS: BMI 29.4
== END 2025-08-17 09:00 | disposition home or self-care (01) ==
LOC: HO.HOS 08:25
PROVIDERS: PCP Physician Assistant; Visit Provider Physician Assistant
DX: M67.814 Other specified disorders of tendon, left shoulder (principal)
CPT/HCPCS: 99213

== ENCOUNTER → 2025-08-17 08:26 | Outpatient (BNV) | payer OTHER, SELFPAY | PROVIDERS: Visit Provider Radiology Diagnostic Radiology | DX: M25.512 Pain in left shoulder (principal) | CPT/HCPCS: 73030 ==

== ENCOUNTER 2025-08-17 08:30 | Outpatient (REF) | payer OTHER, SELFPAY ==
--- NOTE | ~2025-08-17 | XR_ITS ---
EXAMINATION: XR SHOULDER, LEFT CLINICAL INFORMATION: M25.512 - Pain in left shoulder COMPARISON: Correlated to chest x-ray dated August 11, 2024. TECHNIQUE: AP, axillary and Y-view projections of the left shoulder. FINDINGS: No acute cortical disruption or malalignment. No lytic or blastic lesions. No metallic or radiopaque foreign body. No soft tissue calcifications. XR/XR shoulder LT min 2V IMPRESSION: No acute fracture or dislocation or gross degenerative changes. Electronically signed by: Anam Greer MD 08/17/2025 08:48 AM SANJAY
--- OUTSIDE RECORDS SUMMARY | 2025-08-18 09:36 | XMS_ITS | Clinical Summary ---
Author Organization [facility] Address [address] [place] [address] Care Team Providers Care Radiological Equipment Specialist Name Role Phone Pcp, No Primary Care [...] 50+ (1 of 1 - PCV) 2023 RSV Vaccine 50 years and old er and Patients (1 - Risk 50-74 years 1-dose series) 2023 Zoster (Shingles) Vaccine (1 of 2) 2023 Influenza Vaccine 04/29/2025 07/13/2020 COVID-19 Vaccine ( - 2023- season) 2025 Insurance [facility] Care Teams Radiological Equipment Specialist Relationship Specialty Start Date End Date Pcp, No PCP - General General Medicine 12/04/20
== END 2025-08-17 08:31 | disposition home or self-care (01) ==
LOC: HO.HOSX 08:30
PROVIDERS: Visit Provider Physician Assistant
DX: M77.8 Other enthesopathies, not elsewhere classified (principal); Z79.891 Long term (current) use of opiate analgesic; Z79.1 Long term (current) use of non-steroidal anti-inflammatories (NSAID)
CPT/HCPCS: 73030